=== PATIENT | male | born 1965 | race African-American/Black ===

== ENCOUNTER 2017-10-28 18:31 | Emergency (ER) | payer SELFPAY ==
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
[2017-10-28 19:57] LABS: #Basophils 0.1 thou/uL (0.0-0.2); #Eosinphils 0.3 thou/uL (0.0-0.7); #Lymphocytes 1.3 thou/uL (1.20-3.40); #Monocytes 0.4 thou/uL (0.11-0.59); #Neutrophils 1.7 thou/uL (1.40-6.50); %Basophils 1.4 % (0.0-1.0); %Eosinophils 8.2 % (0.0-10.0); %Lymphocytes 35.9 % (21.0-51.0); %Monocytes 9.5 % (0.0-10.0); Hematocrit 41.7 % (42.0-52.0); Mean Platelet Volume 7.9 fL (7.4-10.4); Red Blood Cell (RBC) Count 4.41 mill/uL (4.70-6.10); White Blood Cell (WBC) Count 3.7 thou/uL (4.8-10.8)
[2017-10-28 20:18] LABS: ALT (SGPT) 33 U/L (8-55); AST (SGOT) 70 U/L (5-34); Alkaline Phosphatase 76 U/L (40-150); Anion Gap 16 mmol/L (10-20); BUN (Urea Nitrogen) 4 mg/dL (8.4-25.7); Bilirubin, Total 0.3 mg/dL (0.2-1.2); Calc. Creatinine Clearance 0 mL/min (70-130); Calcium 9.1 mg/dL (7.8-10.44); Carbon Dioxide 26 mmol/L (22-29); Chloride 95 mmol/L (98-107); Estimated GFR-MDRD Greater than 90; Globulin 3.7 g/dL (2.4-3.5)
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
[2017-10-28] MEDS ORDERED: Ondansetron HCl/PF 4 MG/2 ML Vial ONE (20:43)
[2017-10-28] MEDS ORDERED: Morphine 4 MG/ML VIAL ONE (20:43)
[2017-10-28] MEDS ORDERED: Ibuprofen 800 MG TAB ONE (20:43)
== END 2017-10-28 22:13 | disposition home or self-care (01) ==
LOC: ERS 18:31
DX: S20.212A Contusion of left front wall of thorax, initial encounter (principal); J90 Pleural effusion, not elsewhere classified; I10 Essential (primary) hypertension; E11.9 Type 2 diabetes mellitus without complications; J45.909 Unspecified asthma, uncomplicated; F17.210 Nicotine dependence, cigarettes, uncomplicated; W20.8XXA Other cause of strike by thrown, projected or falling object, initial encounter
CPT/HCPCS: 36415; 71020; 71250; 80053; 83605; 85025; 96361; 96374; 96375; J2270; J2405

== ENCOUNTER 2017-10-29 22:10 | Emergency (ER) | payer SELFPAY ==
[2017-10-29] MEDS ORDERED: Ketorolac Tromethamine 60 MG/2 ML VIAL ONE (22:48)
== END 2017-10-29 23:16 | disposition home or self-care (01) ==
LOC: ERS 22:10
DX: R07.89 Other chest pain (principal); I10 Essential (primary) hypertension; E11.9 Type 2 diabetes mellitus without complications; J45.909 Unspecified asthma, uncomplicated; F17.210 Nicotine dependence, cigarettes, uncomplicated; V89.9XXA Person injured in unspecified vehicle accident, initial encounter
CPT/HCPCS: 36416; 96372; J1885

== ENCOUNTER 2017-10-31 00:44 | Inpatient (IN) | payer OTHER, SELFPAY ==
[2017-10-31] MEDS ORDERED: Ibuprofen 800 MG TAB ONE (02:58)
[2017-10-31 04:34] LABS: #Eosinphils 0.2 thou/uL (0.0-0.7); #Lymphocytes 1.5 thou/uL (1.20-3.40); #Monocytes 0.8 thou/uL (0.11-0.59); #Neutrophils 4.1 thou/uL (1.40-6.50); %Basophils 0.7 % (0.0-1.0); %Eosinophils 2.7 % (0.0-10.0); %Lymphocytes 22.7 % (21.0-51.0); %Monocytes 11.8 % (0.0-10.0); %Neutrophils 62.1 % (42.0-75.0); Mean Corpuscular Hemoglobin 31.1 pg (27.0-31.0); Mean Corpuscular Volume 94.2 fl (80.0-94.0); Mean Platelet Volume 8.4 fL (7.4-10.4); Platelet Count 148 thou/uL (130-400); RBC Distribution Width 14.8 % (11.5-14.5); Red Blood Cell (RBC) Count 3.23 mill/uL (4.70-6.10); White Blood Cell (WBC) Count 6.6 thou/uL (4.8-10.8)
[2017-10-31 04:38] LABS: PTT 34.5 SEC (22.9-36.1); Prothrombin Time 13.4 SEC (12.0-14.7)
[2017-10-31 04:57] LABS: ALT (SGPT) 25 U/L (8-55); AST (SGOT) 55 U/L (5-34); Albumin 4.2 g/dL (3.5-5.0); Alkaline Phosphatase 77 U/L (40-150); Anion Gap 14 mmol/L (10-20); BUN (Urea Nitrogen) Less than 4 mg/dL (8.4-25.7); Bilirubin, Total 0.4 mg/dL (0.2-1.2); Calc. Creatinine Clearance 0 mL/min (70-130); Calcium 9.1 mg/dL (7.8-10.44); Carbon Dioxide 25 mmol/L (22-29); Chloride 95 mmol/L (98-107); Estimated GFR-MDRD Greater than 90; Globulin 3.4 g/dL (2.4-3.5); Glucose 99 mg/dL (70-105); Protein, Total 7.6 g/dL (6.0-8.3); Sodium 130 mmol/L (136-145)
[2017-10-31 06:10] VITALS: BMI 21.7
[2017-10-31] MEDS ORDERED: Morphine 4 MG/ML VIAL SLOW IVP PRN (06:31)
[2017-10-31] MEDS ORDERED: Morphine 2 MG/ML SYRINGE SLOW IVP PRN (06:31)
[2017-10-31] MEDS ORDERED: Sodium Chloride 0.9% 1,000 ML IV SCH (06:32)
[2017-10-31] MEDS ORDERED: Ondansetron HCl/PF 4 MG/2 ML Vial IVP PRN (06:32)
[2017-10-31] MEDS ORDERED: Ondansetron ODT 4 MG TAB SL PRN (06:32)
[2017-10-31] MEDS ORDERED: FLU VACC QS2017-18 36 mo. & older 0.5 ML SYRINGE IM ONE (07:00)
[2017-10-31] MEDS ORDERED: Dextrose 50% Abboject 50 ML SYRINGE SLOW IVP PRN ×2 (09:24→09:59)
[2017-10-31] MEDS ORDERED: Rib Fracture Protocol PO SCH (09:24)
[2017-10-31] MEDS ORDERED: Promethazine HCl 25 MG/ML VIAL IM PRN (09:24)
[2017-10-31] MEDS ORDERED: Dextrose 5% in Water 1,000 ML IV PRN ×2 (09:24→09:59)
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
[2017-10-31] MEDS ORDERED: Cyclobenzaprine 10 MG TAB PO PRN ×2 (09:45→10:00)
[2017-10-31] MEDS ORDERED: HumaLOG 300 UNITS/3 ML VIAL SC PRN (09:59)
[2017-10-31] MEDS ORDERED: hydrALAZINE 20 MG/ML VIAL SLOW IVP PRN (09:59)
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
[2017-10-31] MEDS: Ibuprofen 600 MG TAB PO SCH ×2 (11:29→17:44)
[2017-10-31] MEDS: Acetaminophen 500 MG TAB PO SCH ×2 (11:29→17:43)
[2017-10-31] MEDS: traMADol HCl 50 MG TAB PO SCH ×2 (11:41→17:44)
[2017-10-31] MEDS ORDERED: Ibuprofen 800 MG TAB PO SCH (12:00)
[2017-10-31] MEDS: Gabapentin 100 MG CAP PO SCH ×2 (14:34→21:47)
[2017-10-31] MEDS ORDERED: Gabapentin 300 MG CAP PO SCH (15:00)
[2017-10-31] MEDS ORDERED: Loratadine 10 MG TAB PO SCH (16:15)
[2017-10-31] MEDS: Famotidine 20 MG TAB PO SCH (21:47)
[2017-10-31] MEDS: Enoxaparin Sodium 40 MG/0.4 ML SYRINGE SC SCH (21:47)
[2017-11-01] MEDS: Acetaminophen 500 MG TAB PO SCH ×5 (00:25→23:44)
[2017-11-01] MEDS: traMADol HCl 50 MG TAB PO SCH ×2 (00:26→05:57)
[2017-11-01] MEDS: Ibuprofen 600 MG TAB PO SCH ×5 (00:26→23:44)
[2017-11-01 06:25] LABS: Hemoglobin A1c 4.6 % (4.0-6.0)
[2017-11-01 06:37] LABS: Anion Gap 10 mmol/L (10-20); BUN (Urea Nitrogen) 6 mg/dL (8.4-25.7); Calc. Creatinine Clearance 97 mL/min (70-130); Calcium 8.6 mg/dL (7.8-10.44); Carbon Dioxide 28 mmol/L (22-29); Chloride 97 mmol/L (98-107); Estimated GFR-MDRD Greater than 90; Glucose 73 mg/dL (70-105); Potassium 3.8 mmol/L (3.5-5.1); Sodium 131 mmol/L (136-145)
[2017-11-01 07:50] LABS: Hemoglobin 8.8 g/dL (14.0-18.0); Mean Corpuscular HGB CONC 32.7 g/dL (32.0-36.0); Mean Corpuscular Hemoglobin 31.4 pg (27.0-31.0); Mean Corpuscular Volume 95.8 fl (80.0-94.0); Platelet Count 140 thou/uL (130-400); RBC Distribution Width 14.7 % (11.5-14.5); Red Blood Cell (RBC) Count 2.81 mill/uL (4.70-6.10); White Blood Cell (WBC) Count 5.1 thou/uL (4.8-10.8)
[2017-11-01 08:14] LABS: Band 7 % (5-11); Eosinophils 5 % (0-10); Lymphocytes 21 % (21-51); MDiff Complete? YES; Monocytes 8 % (0-10); Neutrophil 55 % (42-75); Polychromasia SLIGHT = 2-3 cells (100X) (0-2/hpf); Reactive Lymphocytes 4 % (0-10)
[2017-11-01] MEDS: Gabapentin 100 MG CAP PO SCH (08:37)
[2017-11-01] MEDS: Polyethylene Glycol 3350 17 GM Packet PO SCH (08:37)
[2017-11-01] MEDS: Famotidine 20 MG TAB PO SCH ×2 (08:37→20:49)
[2017-11-01] MEDS: Loratadine 10 MG TAB PO SCH (08:37)
--- NOTE | 2017-11-01 08:47 | RAD ---
SINGLE VIEW OF THE CHEST: Comparison: 10-31-17 History: Chest tube placement for pleural effusion. FINDINGS: Single view of the chest shows a normal sized cardiomediastinal silhouette. There is a left sided matilda st tube without evidence of pneumothorax. Airspace opacity is seen in the left lung which may represe nt a pulmonary contusion or infiltrate. IMPRESSION: Left pulmonary contusion versus infiltrate. POS: [facility]
[2017-11-01] MEDS ORDERED: traMADol HCl 50 MG TAB PO PRN (09:28)
--- NOTE | 2017-11-01 15:15 | RAD ---
PORTABLE CHEST 1 VIEW: Date: 11/01/17 Time: 1501 hours HISTORY: Hemothorax. FINDINGS/IMPRESSION: Comparison made with earlier exam at 0747 hours from the same date. Left-sided chest tube remains in place. Patchy opacity in left lung is again seen. There is suggestio n of a tiny left apical pneumothorax. The right lung is clear. The heart size is stable. POS: [facility]
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
[2017-11-01] MEDS: Cyclobenzaprine 10 MG TAB PO SCH (20:49)
[2017-11-01] MEDS: Enoxaparin Sodium 40 MG/0.4 ML SYRINGE SC SCH (20:49)
[2017-11-02] MEDS: Acetaminophen 500 MG TAB PO SCH ×3 (06:35→17:34)
[2017-11-02] MEDS: Ibuprofen 600 MG TAB PO SCH ×3 (06:36→17:34)
[2017-11-02] MEDS: Polyethylene Glycol 3350 17 GM Packet PO SCH (08:08)
[2017-11-02] MEDS: Famotidine 20 MG TAB PO SCH ×2 (08:08→20:54)
[2017-11-02] MEDS: Loratadine 10 MG TAB PO SCH (08:08)
[2017-11-02] MEDS: Enoxaparin Sodium 40 MG/0.4 ML SYRINGE SC SCH (20:53)
[2017-11-02] MEDS: Cyclobenzaprine 10 MG TAB PO SCH (20:54)
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
[2017-11-03] MEDS: Acetaminophen 500 MG TAB PO SCH ×3 (00:41→13:26)
[2017-11-03] MEDS: Ibuprofen 600 MG TAB PO SCH ×3 (00:42→13:26)
[2017-11-03] MEDS: Famotidine 20 MG TAB PO SCH (07:45)
[2017-11-03] MEDS: Loratadine 10 MG TAB PO SCH (07:45)
[2017-11-03] MEDS: Polyethylene Glycol 3350 17 GM Packet PO SCH (07:47)
[2017-11-03 08:02] VITALS: BP 162/83; TEMP 98.6
--- NOTE | 2017-11-03 08:35 | RAD ---
CHEST TWO VIEWS: History: Pneumothorax. Follow up. Comparison: 11-01-17 FINDINGS: Cardiac silhouette is now partially obscured by re-accumulation of fluid at the inferior aspect of th e left hemithorax. There is slight leftward shift of the mediastinum. Pleural surface associated with the apex of the left lung is now at the level of the posterior aspect of the left third rib. Left th oracostomy tube has been removed. Atelectasis and scarring at the left base has increased slightly. IMPRESSION: Slight interval enlargement of left pneumothorax and left pleural fluid (presumed blood). POS: [facility]
[2017-11-04] MEDS ORDERED: Lisinopril 5 MG TAB PO SCH (09:00)
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
== END 2017-11-03 15:53 | disposition home or self-care (01) | DRG 201 ==
LOC: ERS 00:44 → SJJU 04:11
PROVIDERS: ADMIT Specialist; ATTEND Specialist
PROC: 0W9B30Z Drainage of Left Pleural Cavity with Drainage Device, Percutaneous Approach (ICD-10-PCS; principal; 2017-10-31)
DX: S27.1XXA Traumatic hemothorax, initial encounter (principal); E11.9 Type 2 diabetes mellitus without complications; F17.210 Nicotine dependence, cigarettes, uncomplicated; V19.3XXA Pedal cyclist (driver) (passenger) injured in unspecified nontraffic accident, initial encounter; Y93.55 Activity, bike riding; I10 Essential (primary) hypertension; J45.909 Unspecified asthma, uncomplicated
CPT/HCPCS: 32551; 36415; 36416; 71010; 71020; 80048; 80053; 83036; 85025; 85610; 85730; 86850; 86900; 86901; 94640; 96360; 99152; 99153; J1650; J2270; J7620

== ENCOUNTER 2017-12-11 05:14 | Inpatient (IN) | payer OTHER, SELFPAY ==
[2017-12-11] MEDS ORDERED: Piperacillin/Tazobactam 3.375 GM in Sodium Chloride 0.9% 100 ML IVPB SCH (07:30)
[2017-12-11 07:46] LABS: #Basophils 0.1 thou/uL (0.0-0.2); #Eosinphils 0.1 thou/uL (0.0-0.7); #Lymphocytes 2.3 thou/uL (1.20-3.40); #Neutrophils 8.1 thou/uL (1.40-6.50); %Basophils 0.7 % (0.0-1.0); %Eosinophils 0.8 % (0.0-10.0); %Lymphocytes 19.9 % (21.0-51.0); %Monocytes 8.9 % (0.0-10.0); %Neutrophils 69.7 % (42.0-75.0); Hemoglobin 9.2 g/dL (14.0-18.0); Mean Corpuscular HGB CONC 32.5 g/dL (32.0-36.0); Mean Corpuscular Hemoglobin 27.3 pg (27.0-31.0); Platelet Count 662 thou/uL (130-400); RBC Distribution Width 18.3 % (11.5-14.5); Red Blood Cell (RBC) Count 3.37 mill/uL (4.70-6.10); White Blood Cell (WBC) Count 11.7 thou/uL (4.8-10.8)
--- NOTE | 2017-12-11 07:54 | RAD ---
CHEST 1 VIEW: HISTORY: A 52-year-old male with a history of cough and phlegm for 3 days without fever. COMPARISON: 11/03/17. FINDINGS: There are 2 large homogeneous opacities in the left chest, 1 in the left upper chest measuring approx imately 11 cm and the other one in the left lower chest measuring approximately 12 cm probably repres enting large loculated pleural effusions. There is some minimal patchy parenchymal change in the rem aining left lung that is visualized. Minimal patchy parenchymal changes in the right mid lung zone w hich are new from the prior study, 11/03/17. Heart size is difficult to assess because of the extens clay pleural opacity changes. IMPRESSION: Two large nodular areas of abnormal probable pleural opacity in the left chest, one in the upper mat[address] st and the other in the lower chest probably representing large loculated pleural effusions-empyema. Diffuse patchy parenchymal changes in the left chest. New minimal patchy parenchymal changes in the right mid lung zone. Followup chest CT scan with IV contrast is recommended. No evidence for signi ficant pneumothorax. POS: [facility]
[2017-12-11 08:08] LABS: ALT (SGPT) 13 U/L (8-55); AST (SGOT) 20 U/L (5-34); Albumin 2.8 g/dL (3.5-5.0); Alkaline Phosphatase 71 U/L (40-150); Anion Gap 13 mmol/L (10-20); BUN (Urea Nitrogen) 5 mg/dL (8.4-25.7); Bilirubin, Total 0.4 mg/dL (0.2-1.2); CK (CPK) 33 U/L (30-200); Calc. Creatinine Clearance 0 mL/min (70-130); Calcium 8.9 mg/dL (7.8-10.44); Carbon Dioxide 25 mmol/L (22-29); Chloride 90 mmol/L (98-107); Estimated GFR-MDRD Greater than 90; Glucose 74 mg/dL (70-105); Potassium 4.3 mmol/L (3.5-5.1); Protein, Total 7.8 g/dL (6.0-8.3); Sodium 124 mmol/L (136-145)
[2017-12-11 08:11] LABS: CKMB 0.8 ng/mL (0-6.6); Troponin I 0.028 ng/mL (< 0.028)
--- NOTE | 2017-12-11 08:47 | CT ---
CHEST CT SCAN WITH IV CONTRAST: HISTORY: A 52-year-old female with a history of fall last month and now presents with cough with chills and maggi dy aches. FINDINGS: There is a large, approximately 8.5 x 12 cm diameter air and pleural fluid loculation in the left upp er chest. Additionally, in the left lower chest there is an approximately 5.5 x 14 cm diameter pleur al fluid collection without a significant amount of associated pleural air. This pleural fluid colle ction appears to extend through an approximately 1.5 cm defect in the anterior chest between displace d fractures of the left 6th and 7th anterior costochondral cartilages. This forms a fluid collection measuring approximately 2 x 6 cm in the left anterior superficial chest wall with some associated pu nctate gas pockets. This could suggest some actual pleural herniation through this defect. There ar e nondisplaced fractures of the left 5th and 6th anterior ribs as well. There are some patchy parenc hymal changes in the right upper lobe certainly raising concern for pneumonia. The aorta appears unr emarkable. No mediastinal hematoma. THORACIC SPINE CT SCAN WITH IV CONTRAST LIMITED: FINDINGS: No thoracic spine fracture or dislocation. Multilevel disk-osteophytosis. Visualized upper abdomen appears unremarkable. IMPRESSION: Two large loculated pleural collections in the left chest. The one superiorly contains some air with in it, the more caudal one appears to be primarily fluid with what appears to be an associated pleura l herniation through the anterior chest wall associated with displaced fractures of the left 6th and 7th anterior costochondral cartilage. This area of pleural herniation is associated with an anterior left chest wall fluid collection with some punctate gas as well. Patchy parenchymal changes in the right upper lobe, evidence for pneumonia. Findings were discussed with Dr. Willis by phone at 8:24 a.m. CODE CR POS: [facility]
[2017-12-11] MEDS ORDERED: Ondansetron ODT 4 MG TAB SL PRN (10:34)
[2017-12-11] MEDS ORDERED: Ondansetron HCl/PF 4 MG/2 ML Vial IVP PRN ×2 (10:34→10:42)
[2017-12-11] MEDS ORDERED: HYDROcodone/Acetaminophen 5/325 mg Tablet PO PRN ×3 (10:34→10:42)
[2017-12-11] MEDS ORDERED: Acetaminophen 325 MG TAB PO PRN ×2 (10:34→10:42)
[2017-12-11] MEDS ORDERED: Diabetic Tussin 200 MG/10 ML UDCUP PO PRN (10:42)
[2017-12-11] MEDS ORDERED: traMADol HCl 50 MG TAB PO PRN (10:42)
[2017-12-11] MEDS ORDERED: Senokot 8.6 MG TAB PO PRN ×2 (10:42)
[2017-12-11] MEDS ORDERED: Sodium Chloride 0.9% 1,000 ML IV SCH ×3 (10:42→14:27)
[2017-12-11] MEDS ORDERED: Calcium Carbonate 500 MG ChewTAB PO PRN (10:42)
[2017-12-11] MEDS ORDERED: Nitroglycerin 0.4 MG TAB (25 Tab Bottle) SL PRN (10:42)
[2017-12-11] MEDS ORDERED: Mag-Al 1200 mg/1200 mg/30 ML UDCUP PO PRN (10:42)
[2017-12-11] MEDS ORDERED: Dextrose 50% Abboject 50 ML SYRINGE SLOW IVP PRN (10:42)
[2017-12-11] MEDS ORDERED: Benzonatate 100 MG CAP PO PRN (10:42)
[2017-12-11] MEDS ORDERED: cloNIDine 0.1 MG TAB PO PRN (10:42)
[2017-12-11] MEDS ORDERED: Dextrose 5% in Water 1,000 ML IV PRN (10:42)
[2017-12-11] MEDS ORDERED: hydrALAZINE 20 MG/ML VIAL SLOW IVP PRN (10:42)
[2017-12-11] MEDS ORDERED: Bisacodyl 5 MG TAB PO PRN ×2 (10:42)
[2017-12-11] MEDS ORDERED: Loratadine 10 MG TAB PO PRN (10:42)
[2017-12-11] MEDS ORDERED: HumaLOG 300 UNITS/3 ML VIAL SC PRN ×2 (10:42)
[2017-12-11] MEDS ORDERED: Lorazepam 2 MG/ML VIAL SLOW IVP PRN ×2 (10:42→15:06)
[2017-12-11] MEDS ORDERED: Famotidine/PF 20 mg/2ml Vial SLOW IVP SCH (11:00)
[2017-12-11] MEDS ORDERED: Enoxaparin Sodium 40 MG/0.4 ML SYRINGE SC SCH (11:00)
[2017-12-11] MEDS ORDERED: Midazolam HCl 2 mg/2 ml Vial ONE ×2 (11:01→11:39)
[2017-12-11] MEDS ORDERED: Fentanyl 100 MCG/2 ML VIAL ONE ×3 (11:01→11:25)
[2017-12-11] MEDS ORDERED: ISOVUE-370 76%-LOCM 1 ML ONE (12:42)
[2017-12-11] MEDS ORDERED: Bupivacaine PF 0.5% 30 ML VIAL ONE (12:45)
[2017-12-11] MEDS ORDERED: Bupivacaine 0.25% HCL 30 ML VIAL ONE (12:45)
[2017-12-11] MEDS ORDERED: Lidocaine 1% w/Epinephrine 1:200K 30 ML VIAL ONE (12:45)
[2017-12-11] MEDS ORDERED: PHENYLEPHRINE-NS 100 MCG/ML 10 ML SYRINGE ONE ×2 (12:46→14:44)
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
[2017-12-11] MEDS ORDERED: Piperacillin/Tazobactam 4.5 GM in Sodium Chloride 0.9% 100 ML IVPB SCH (14:00)
[2017-12-11] MEDS ORDERED: SUGAMMADEX SODIUM 200 MG/2 ML VIAL ONE (14:09)
[2017-12-11] MEDS ORDERED: Glycopyrrolate 0.2 MG/ML 5 ML SYRINGE ONE (14:44)
[2017-12-11] MEDS ORDERED: Ondansetron HCl/PF 4 MG/2 ML Vial ONE (14:44)
[2017-12-11] MEDS ORDERED: PROPOFOL 200 MG/20 ML VIAL ONE (14:44)
[2017-12-11] MEDS ORDERED: Sedation Protocol FS ONE (14:47)
[2017-12-11] MEDS ORDERED: DISCONTINUE PREVIOUS NARCOTIC PAIN MEDICATIONS AND BENZODIAZEPINES FS SCH (15:06)
[2017-12-11] MEDS ORDERED: Fentanyl BOLUS 250 ML IVPB PRN (15:06)
[2017-12-11] MEDS ORDERED: Morphine 2 MG/ML SYRINGE SLOW IVP PRN (15:06)
[2017-12-11] MEDS ORDERED: Propofol 1,000 MG/100 ML VIAL IV PRN (15:06)
[2017-12-11] MEDS ORDERED: fentaNYL Citrate/PF 2,000 MCG in Sodium Chloride 0.9% 60 ML IV SCH (15:06)
[2017-12-11] MEDS ORDERED: CCU Electrolyte Replacement 1 EACH FS ONE (15:27)
[2017-12-11] MEDS ORDERED: Potassium Phosphate 12 MMOL in Sodium Chloride 0.9% 250 ML 250 ML IV PRN (15:31)
[2017-12-11] MEDS ORDERED: Potassium Phosphate 9 MMOL in Sodium Chloride 0.9% 100 ML IVPB PRN (15:31)
[2017-12-11] MEDS ORDERED: Magnesium 2 GM/NS 0.9% 100 ML 2 GM in Premix Bag 1 BAG IVPB PRN (15:31)
[2017-12-11] MEDS ORDERED: Potassium Chloride 40 MEQ in Premix Bag 1 BAG IVPB PRN (15:31)
[2017-12-11] MEDS ORDERED: Potassium Phosphate 15 MMOL in Sodium Chloride 0.9% 250 ML 250 ML IV PRN (15:31)
[2017-12-11] MEDS ORDERED: Magnesium Oxide 400 MG TAB PO PRN ×2 (15:31)
[2017-12-11] MEDS ORDERED: Potassium Chloride 40 MEQ in Sodium Chloride 0.9% 250 ML 250 ML IVPB PRN (15:31)
[2017-12-11] MEDS ORDERED: Potassium Chloride 20 MEQ TAB PO PRN (15:31)
[2017-12-11] MEDS ORDERED: CCU ELECTROLYTE REPLACEMENT PROTOCOL FS PRN (15:31)
[2017-12-11 15:33] LABS: Hemoglobin 6.7 g/dL (14.0-18.0); Mean Corpuscular HGB CONC 31.8 g/dL (32.0-36.0); Mean Corpuscular Hemoglobin 27.1 pg (27.0-31.0); Mean Corpuscular Volume 85.3 fl (80.0-94.0); Mean Platelet Volume 5.9 fL (7.4-10.4); Platelet Count 478 thou/uL (130-400); RBC Distribution Width 18.3 % (11.5-14.5); Red Blood Cell (RBC) Count 2.47 mill/uL (4.70-6.10); White Blood Cell (WBC) Count 8.5 thou/uL (4.8-10.8)
--- NOTE | 2017-12-11 16:00 | RAD ---
CHEST ONE VIEW: History: 52-year-old male with history of cough and recent post thoracotomy. Comparison: 12-11-17 FINDINGS: The very large loculated pleural and air loculations have markedly improved. Two left chest tubes rem ain in place. NG tube, endotracheal tube and left subclavian catheters are in place. Patchy parenchym al changes in the right upper lobe, evidence for some pneumonia. No significant pneumothorax. IMPRESSION: Marked improvement in the large loculated pleural collections from the prior pre-operative study. Two left chest tubes. Stable parenchymal changes in the right mid and upper lung zone. Continue short te rm follow up. POS: [facility]
[2017-12-11 16:01] LABS: Anion Gap 9 mmol/L (10-20); BUN (Urea Nitrogen) 6 mg/dL (8.4-25.7); Calc. Creatinine Clearance 152 mL/min (70-130); Calcium 6.8 mg/dL (7.8-10.44); Carbon Dioxide 19 mmol/L (22-29); Chloride 104 mmol/L (98-107); Estimated GFR-MDRD Greater than 90; Glucose 69 mg/dL (70-105); Potassium 3.9 mmol/L (3.5-5.1); Sodium 128 mmol/L (136-145)
[2017-12-11 16:04] LABS: #Eosinphils 0.1 thou/uL (0.0-0.7); #Lymphocytes 1.4 thou/uL (1.20-3.40); #Monocytes 0.8 thou/uL (0.11-0.59); #Neutrophils 6.3 thou/uL (1.40-6.50); %Basophils 0.3 % (0.0-1.0); %Eosinophils 1.1 % (0.0-10.0); %Lymphocytes 15.8 % (21.0-51.0); %Monocytes 9.1 % (0.0-10.0); %Neutrophils 73.7 % (42.0-75.0); Anisocytosis SLIGHT = 6-15 cells (100X) (0-5/hpf); Band 10 % (5-11); Hypochromia SLIGHT = 6-15 cells (100X) (0-5/hpf); Lymphocytes 10 % (21-51); MDiff Complete? YES; Monocytes 2 % (0-10); Neutrophil 78 % (42-75); PLT Morphology Comment Appears Increased
[2017-12-11] MEDS ORDERED: Calcium Chloride 1 GM/10 ML Abboject SYRINGE ONE (16:15)
[2017-12-11] MEDS ORDERED: Norepinephrine 8 MG/0.9% NS 250 ML IVPB SCH (16:15)
[2017-12-11] MEDS: Sodium Chloride 0.9% 1,000 ML IV SCH (16:17)
[2017-12-11 16:25] LABS: Actual Bicarbonate (HCO3a) 17.8 mEq/L (22-26); Base Excess (BEa) -7.3 mEq/L (0 (+/-) 2.5); CO2 Tension 33.7 mmHg (35.0-45.0); Hematocrit-ABG 27.5 % (42.0-52.0); Hemoglobin (Hb) 7.1 g/dL (14.0-18.0); O2 Tension (PaO2) 78.2 mmHg (80.0-100.0); pH, Arterial 7.34 (7.35-7.45)
[2017-12-11 16:26] LABS: ALV-art Gradient 70.835 (0-20); Calcium, Ionized 1.1 mmol/L (1.12-1.30); Puncture Site ALINE
[2017-12-11] MEDS ORDERED: Calcium Chloride 1 GM/10 ML Abboject SYRINGE IVP SCH (16:30)
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
--- NOTE | 2017-12-11 17:15 | OP ---
DATE OF PROCEDURE: 12/11/2017 PREOPERATIVE DIAGNOSIS: Left empyema. POSTOPERATIVE DIAGNOSIS: Left empyema. PROCEDURE PERFORMED: Left thoracotomy with total pulmonary decortication, drainage of 2 subcutaneous abscesses. SURGEON: Julian Mehta M.D. ANESTHESIA: General endotracheal. ESTIMATED BLOOD LOSS: 250. FINDINGS: 1700 mL of purulent drainage from the chest. DRAINS: 32-Moroccan chest tubes x2. PROCEDURE IN DETAIL: After consent was obtained, the patient was brought to operating room and place d in the supine position on the operating room table. Appropriate anesthetic monitor was placed and general endotracheal anesthesia induced. Flexible fiberoptic bronchoscopy was used to position a lucia ble lumen endotracheal tube. The patient was placed in the right lateral decubitus position. The le ft chest was prepped and draped in usual sterile fashion including the 2 areas of subcutaneous absces s. Posterolateral thoracotomy was made and eventually extended. Latissimus and serratus were divide d. The chest was entered and the ribs would not spread. This led to extending the incision, both an teriorly and posteriorly. Once the retractor could be placed between the ribs, retractor was placed. Cultures were taken. There were two separate large abscesses which were drained 1 at the apex and 1 supradiaphragmatic involving the lower lobe. The lung was completely mobilized from the chest wall . The lower abscess cavity was able to be entered with a sucker - this communicated with the thoraci c cavity. The skin was opened and allowed to drain. A second abscess cavity also was able to be ent ered with a sucker from inside the chest cavity. The abscess cavity was opened and drained. The matilda st was irrigated with 5 liters of saline. The lung was reexpanded and expanded and filled the chest cavity fairly well. There were no other areas where we could remove peel from the lung. There were multiple areas of air leak already just getting the lung mobilized from the chest wall. A 32 Moroccan chest tube x2 were placed. Ribs were reapproximated with #1 Vicryl. Wounds were then closed in laye rs. Skin clips were applied. The two areas of abscess were packed with gauze and covered with an oc clusive dressing. The patient was awakened, extubated, and transferred to the Intensive Care Unit in stable condition. Needle, sponge, and instrument counts were all reported as correct.
[2017-12-11] MEDS: Vancomycin HCl 1 GM in Premix Bag 1 BAG IVPB SCH ×2 (17:25→20:23)
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
[2017-12-11] MEDS: Piperacillin/Tazobactam 3.375 GM in Sodium Chloride 0.9% 100 ML IVPB SCH ×2 (19:30→23:51)
[2017-12-11] MEDS: Famotidine/PF 20 mg/2ml Vial SLOW IVP SCH (20:24)
[2017-12-11] MEDS ORDERED: FLU VACC QS2017-18 36 mo. & older 0.5 ML SYRINGE IM ONE (21:00)
[2017-12-12] MEDS: Vancomycin HCl 1 GM in Premix Bag 1 BAG IVPB SCH ×3 (04:21→20:14)
[2017-12-12 04:45] LABS: #Eosinphils 0.1 thou/uL (0.0-0.7); #Lymphocytes 2.8 thou/uL (1.20-3.40); #Monocytes 1.3 thou/uL (0.11-0.59); %Basophils 0.2 % (0.0-1.0); %Eosinophils 0.7 % (0.0-10.0); %Lymphocytes 16.1 % (21.0-51.0); %Monocytes 7.8 % (0.0-10.0); %Neutrophils 75.2 % (42.0-75.0); Mean Corpuscular HGB CONC 31.4 g/dL (32.0-36.0); Mean Corpuscular Hemoglobin 27.6 pg (27.0-31.0); Mean Corpuscular Volume 87.8 fl (80.0-94.0); Platelet Count 498 thou/uL (130-400); RBC Distribution Width 16.8 % (11.5-14.5); Red Blood Cell (RBC) Count 3.63 mill/uL (4.70-6.10); White Blood Cell (WBC) Count 17.3 thou/uL (4.8-10.8)
[2017-12-12 05:03] LABS: Calc. Creatinine Clearance 130 mL/min (70-130); Estimated GFR-MDRD Greater than 90
[2017-12-12 05:04] LABS: BUN (Urea Nitrogen) 7 mg/dL (8.4-25.7)
[2017-12-12] MEDS: Sodium Chloride 0.9% 1,000 ML IV SCH (05:07)
[2017-12-12 05:21] LABS: Anion Gap 11 mmol/L (10-20); Calcium 8.1 mg/dL (7.8-10.44); Carbon Dioxide 18 mmol/L (22-29); Chloride 103 mmol/L (98-107); Glucose 70 mg/dL (70-105); Potassium 4.4 mmol/L (3.5-5.1); Sodium 128 mmol/L (136-145)
[2017-12-12] MEDS: Piperacillin/Tazobactam 3.375 GM in Sodium Chloride 0.9% 100 ML IVPB SCH ×3 (06:40→18:00)
--- NOTE | 2017-12-12 07:57 | RAD ---
PORTABLE AP CHEST: Date: 12/12/17 HISTORY: Post left thoracotomy. COMPARISON: 12/11/17. FINDINGS: The endotracheal tube, nasogastric tube, and left subclavian central venous catheter remain in place and unchanged in position. Two left-sided thoracostomy tubes also remain in position. There is increa sed density again seen with patchy parenchymal changes at the left lung base which could be related t o volume loss and related to recent postsurgical change. Skin clips overlie the left lateral chest wi th subcutaneous emphysema again present. Linear density in the right mid lung zone is similar to the prior study which may be related to atelectasis or scarring. Chest is not significantly changed when compared to the prior exam. IMPRESSION: 1. Stable chest. 2. Left-sided thoracostomy tubes remain in place, and no obvious pneumothorax is appreciated. POS: OFF
[2017-12-12] MEDS: Famotidine/PF 20 mg/2ml Vial SLOW IVP SCH (08:37)
[2017-12-12] MEDS ORDERED: Enoxaparin Sodium 40 MG/0.4 ML SYRINGE SC SCH (09:00)
[2017-12-12 11:37] LABS: Vancomycin, Trough 13.4 ug/mL
[2017-12-12 11:59] LABS: Syphilis Antibody Nonreactive (Nonreactive); Syphilis Antibody Index 0.07 S/CO (<1.00 Non-Reactive)
[2017-12-12 12:02] LABS: HIV (1/2) Antibody/Antigen Non-Reactive (NonReactive); HIV 1/2 INDEX 0.29 S/CO (<1.00); Hep C IgG Ab Non-Reactive (NonReactive)
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
[2017-12-12] MEDS ORDERED: Sodium Chloride 0.9% 1,000 ML IV SCH (12:25)
--- NOTE | 2017-12-12 12:41 | PRG ---
DATE OF SERVICE: 12/12/2017 SERVICE: Pulmonary Medicine. INTERVAL HISTORY: The patient is doing really well from a cardiovascular and respiratory standpoint. This morning, he was doing well on a spontaneous breathing trial. He had no events overnight. He cannot provide me any additional elements of the history, because he currently has a difficult time s peaking with the tube in his throat. PHYSICAL EXAMINATION: VITAL SIGNS: Afebrile, pulse 122, blood pressure 132/79, respirations 30, saturation 100% on 21% FiO 2 and a PEEP of 5. GENERAL: The patient is awake, alert, in no apparent distress. LUNGS: Excellent air entry. There is no prolonged expiratory phase, wheezing, rhonchi, or crackles present. There are some rubs associated with deep breathing. HEART: Tachycardic. Regular. ABDOMEN: Soft, nontender, nondistended. Bowel sounds positive. MUSCULOSKELETAL: No cyanosis or clubbing. There is no pitting in the bilateral lower extremities. NEUROLOGIC: Grossly nonfocal. LABORATORY DATA: WBC 17.3, hemoglobin 10.0, platelets 498,000. Neutrophil count is 75%. Sodium 128 . Basic metabolic profile is otherwise unremarkable. The pleural fluid is growing 2 different Staph ylococcus species. Blood cultures x2 are unremarkable. Influenza A and B are negative. IMAGING: Chest x-ray demonstrates stable thoracostomy drains in good position. The apical pneumotho rax has resolved. His left subclavian central venous catheter is in good position. Overall, there h as been no interval change. ASSESSMENT: 1. Acute hypoxic respiratory failure. 2. Septic shock. 3. Empyema service on the left. 4. Thoracotomy with decortication, postoperative day #1. 5. Type 2 diabetes mellitus. DISCUSSION AND PLAN: The patient is doing absolutely fantastic. If he meets criteria following a sp ontaneous breathing trial, extubation will be considered. Pulmonary Critical Care will continue to f jaden while the patient remains in this location. If he extubates comfortably, we will feed him, mob ilize him, and discontinue the Silva catheter as well art-line. We will work on getting him up into a chair a couple times on a daily basis and stop transducing the CVP. He will need to remain in the ICU for at least an additional 24 hours. Critical care time: 30 minutes.
--- NOTE | 2017-12-12 15:07 | PDOC.PN ---
- Subjective Encounter Start Date: 12/12/17 Encounter Start Time: 15:05 Subjective: feels so much better. extubated and awake. -: denies any significant pain or SOB - Objective MAR Reviewed: Yes Vital Signs & Weight: Vital Signs (12 hours) Temp Pulse Resp Pulse Ox 12/12/17 12:00 98.5 F 94 L 12/12/17 08:58 99 12/12/17 07:29 99.1 F 112 H 30 H 97 12/12/17 07:00 99.1 F 12/12/17 06:00 21 H 12/12/17 04:00 98.8 F 29 H 12/12/17 03:20 104 H Weight Weight 148 lb Most Recent Monitor Data Heart Rate from ECG 116 NIBP 130/74 NIBP BP-Mean 96 Respiration from ECG 39 SpO2 97 I&O: 12/11/17 12/12/17 12/13/17 06:59 06:59 06:59 Intake Total 3120 720 Output Total 1543 545 Balance 1577 175 Result Diagrams: 12/12/17 04:20 12/12/17 04:20 Additional Labs: Accuchecks 12/12/17 12/11/17 12/11/17 11:38 21:51 19:19 POC Glucose 147 H 95 85 12/11/17 17:34 POC Glucose 60 L Microbiology 12/11/17 05:30 Nasal swab Influenza Types A,B Direct EIA - Final 12/11/17 12:40 Pleural - Left Bacterial Culture - Preliminary 12/11/17 12:40 Pleural - Left Staphylococcus species#2 Staphylococcus species 12/11/17 12:40 Pleural - Left Bacterial Culture - Preliminary 12/11/17 07:40 Venous blood - Left Arm Blood Culture - Preliminary Specimen has been received and culture in progress. No Growth to date. 12/11/17 07:28 Venous blood - Right Arm Blood Culture - Preliminary Specimen has been received and culture in progress. No Growth to date. Laboratory Tests 12/11/17 12/11/17 12/11/17 07:28 07:28 15:19 Hgb 9.2 L Sodium 124 L 128 L 12/11/17 12/12/17 12/12/17 15:19 04:20 04:20 Hgb 6.7 L 10.0 L Sodium 128 L Phys Exam - Physical Examination Constitutional: NAD HEENT: PERRLA, moist MMs, sclera anicteric, oral pharynx no lesions Left subclavian in place Neck: no nodes, no JVD, supple, full ROM Respiratory: no wheezing, no rales, no rhonchi, clear to auscultation bilateral Cardiovascular: RRR, no significant murmur Gastrointestinal: soft, non-tender, no distention, positive bowel sounds Musculoskeletal: no edema, pulses present Neurological: non-focal, normal sensation, moves all 4 limbs Psychiatric: normal affect, A&O x 3 Dx/Plan (1) Empyema lung Code(s): J86.9 - PYOTHORAX WITHOUT FISTULA Status: Acute Comment: s/p decortication & thoracotomy 12/11/17.Chest Tube in place (2) Septic shock Code(s): A41.9 - SEPSIS, UNSPECIFIED ORGANISM; R65.21 - SEVERE SEPSIS WITH SEPTIC SHOCK Status: Resolved (3) Hyponatremia Code(s): E87.1 - HYPO-OSMOLALITY AND HYPONATREMIA Status: Acute Comment: Stable.trang DOHERTYPORSHA d/t Empyema. (4) DM2 (diabetes mellitus, type 2) Status: Chronic Qualifiers: Diabetes mellitus complication status: with hyperglycemia (5) Acute blood loss as cause of postoperative anemia Code(s): D62 - ACUTE POSTHEMORRHAGIC ANEMIA Status: Acute Comment: Stable H/ H post 2 unit PRBC on 12/11/17 (6) HTN (hypertension) Code(s): I10 - ESSENTIAL (PRIMARY) HYPERTENSION Status: Chronic Comment: Lisinopril on hold as BP was low - Plan continue antibiotics, PT/OT, social insurance adviser, respiratory therapy, incentive spirometry, out of bed/ambulate, DVT proph w/SCDs Clinically much better.Hemodynamically stable. -: cont ABx per ID.chest tube in place -: appreciate input form all specialists -: BP better.no need for pressors. -: HIv,RPR & hepatitis panels negative * .AM labs Review of Systems - Review of Systems Constitutional: weakness. negative: fever, chills, sweats, malaise, other ENT: negative: Ear Pain, Ear Discharge, Nose Pain, Nose Discharge, Nose Congestion, Mouth Pain, Mouth Swelling, Throat Pain, Throat Swelling, Other Respiratory: SOB with Excertion. negative: Cough, Dry, Shortness of Breath, Hemoptysis, Pleuritic Pain, Sputum, Wheezing Cardiovascular: negative: chest pain, palpitations, orthopnea, paroxysmal nocturnal dyspnea, edema, light headedness, other Gastrointestinal: negative: Nausea, Vomiting, Abdominal Pain, Diarrhea, Constipation, Melena, Hematochezia, Other Genitourinary: negative: Dysuria, Frequency, Incontinence, Hematuria, Retention , Other Musculoskeletal: negative: Neck Pain, Shoulder Pain, Arm Pain, Back Pain, Hand Pain, Leg Pain, Foot Pain, Other Neurological: negative: Weakness, Numbness, Incoordination, Change in Speech, Confusion, Seizures, Other - Medications/Allergies Allergies/Adverse Reactions: Allergies Allergy/AdvReac Type Severity Reaction Status Date / Time No Known Drug Allergies Allergy Verified 10/31/17 06:20 Medications: Current Medications Acetaminophen (Tylenol) 650 mg PO Q4H PRN PRN Reason: Headache/Fever or Pain Hydrocodone Bitart/Acetaminophen (Dumas 10/325) 1 tab PO Q4H PRN PRN Reason: Pain Al Hydroxide/Mg Hydroxide (Maalox) 30 ml PO Q6H PRN PRN Reason: Heartburn or Indigestion Bisacodyl (Dulcolax) 10 mg PO DAILYPRN PRN PRN Reason: Constipation Calcium Carbonate (Tums) 1,000 mg PO Q4H PRN PRN Reason: Heartburn or Indigestion Dextrose/Water (Dextrose 50%) 25 gm SLOW IVP PRN PRN PRN Reason: Hypoglycemia Glucagon (Glucagon) 1 mg IM PRN PRN PRN Reason: Hypoglycemia Guaifenesin (Robitussin Sf) 200 mg PO Q4H PRN PRN Reason: Cough Hydralazine HCl (Apresoline) 10 mg SLOW IVP Q4H PRN PRN Reason: Systolic BP > 180 Dextrose/Water (D5w) 1,000 mls @ 0 mls/hr IV .Q0M PRN; As Directed PRN Reason: Hypoglycemia Vancomycin HCl 1 gm/ Device 200 mls @ 200 mls/hr IVPB 0400,1200,2000 [facility] Last Admin: 12/12/17 11:38 Dose: 200 mls Piperacillin Sod/Tazobactam (Sod 3.375 gm/ Sodium Chloride) 100 mls @ 200 mls/ hr IVPB Q6HR [facility] Last Admin: 12/12/17 11:39 Dose: 100 mls Potassium Chloride 40 meq/ (Sodium Chloride) 270 mls @ 135 mls/hr IVPB ASDIR PRN PRN Reason: FOR SERUM K+ 2.5 - 3.5 Potassium Chloride 40 meq/ (Device) 100 mls @ 50 mls/hr IVPB ASDIR PRN PRN Reason: FOR SERUM K+ 2.5 - 3.5 Magnesium Sulfate 1 gm/ Sodium (Chloride) 102 mls @ 102 mls/hr IV PRN PRN PRN Reason: MAG LEVEL 1.4 - 2.0 Magnesium Sulfate 2 gm/ Device 100 mls @ 100 mls/hr IVPB ASDIR PRN PRN Reason: MAGNESIUM < 1.4 Potassium Phosphate 9 mmol/ (Sodium Chloride) 103 mls @ 25.75 mls/hr IVPB ASDIR PRN PRN Reason: Phosphate 1.0-1.8 Potassium Phosphate 12 mmol/ (Sodium Chloride) 254 mls @ 63.5 mls/hr IV ASDIR PRN PRN Reason: Serum phosphate 0.5-0.9 Potassium Phosphate 15 mmol/ (Sodium Chloride) 255 mls @ 63.75 mls/hr IV ASDIR PRN PRN Reason: Serum Phos < 0.5 Sodium Chloride (Normal Saline 0.9%) 1,000 mls @ 0 mls/hr IV .Q0M GABBY PRN Reason: KVO Insulin Human Lispro (Humalog) 0 units SC .MODERATE SLIDING SC PRN PRN Reason: Moderate Correctional Scale Insulin Human Lispro (Humalog) 0 units SC .BEDTIME SLIDING SC PRN PRN Reason: Bedtime Correctional Scale Loratadine (Claritin) 10 mg PO DAILYPRN PRN PRN Reason: Sinus Symptoms Magnesium Oxide (Magnesium Oxide) 400 mg PO BIDPRN PRN PRN Reason: FOR SERUM MAG 1.4 - 2.0 Magnesium Oxide (Magnesium Oxide) 800 mg PO PRN PRN PRN Reason: FOR SERUM MAG < 1.4 Miscellaneous Medication (Pharmacy To Dose) 1 each IVPB PRN PRN PRN Reason: Pharmacy to dose Miscellaneous Medication (Phos-Nak) 1 pkt PO TIDPRN PRN PRN Reason: FOR PHOS LEVEL 1.0 - 1.8 Miscellaneous Medication (Phos-Nak) 2 pkt PO TIDPRN PRN PRN Reason: FOR PHOS LEVEL 0.5 - 1.0 Nitroglycerin (Nitrostat) 0.4 mg SL Q5MIN PRN PRN Reason: Chest Pain Ccu Electrolyte (Replacement Protocol) 0 each FS PRN PRN PRN Reason: FOR ELECTROLYTE REPLACEMENT Ondansetron HCl (Zofran) 4 mg IVP Q6H PRN PRN Reason: Nausea/Vomiting Potassium Chloride (K-Dur) 40 meq PO ASDIR PRN PRN Reason: FOR SERUM K+ 2.5 - 3.5 Potassium Chloride (Klor-Con) 40 meq PER TUBE ASDIR PRN PRN Reason: FOR SERUM K+ 2.5-3.5 Senna (Senokot) 2 tab PO HSPRN PRN PRN Reason: Constipation Sodium Chloride (Flush - Normal Saline) 10 ml IVF PRN PRN PRN Reason: Saline Flush
[2017-12-12] MEDS ORDERED: Famotidine 20 MG TAB PO SCH (21:00)
[2017-12-13] MEDS: Piperacillin/Tazobactam 3.375 GM in Sodium Chloride 0.9% 100 ML IVPB SCH ×2 (00:04→06:16)
[2017-12-13] MEDS: Vancomycin HCl 1 GM in Premix Bag 1 BAG IVPB SCH (03:56)
[2017-12-13 05:12] LABS: #Basophils 0.1 thou/uL (0.0-0.2); #Eosinphils 0.1 thou/uL (0.0-0.7); #Lymphocytes 3.4 thou/uL (1.20-3.40); #Monocytes 1.7 thou/uL (0.11-0.59); %Basophils 0.6 % (0.0-1.0); %Eosinophils 0.5 % (0.0-10.0); %Lymphocytes 18.3 % (21.0-51.0); %Monocytes 9.5 % (0.0-10.0); %Neutrophils 71.1 % (42.0-75.0); Hemoglobin 9.9 g/dL (14.0-18.0); Mean Corpuscular HGB CONC 33.1 g/dL (32.0-36.0); Mean Corpuscular Hemoglobin 28.9 pg (27.0-31.0); Mean Corpuscular Volume 87.4 fl (80.0-94.0); Platelet Count 502 thou/uL (130-400); Red Blood Cell (RBC) Count 3.41 mill/uL (4.70-6.10); White Blood Cell (WBC) Count 18.3 thou/uL (4.8-10.8)
[2017-12-13 05:35] LABS: Anion Gap 8 mmol/L (10-20); BUN (Urea Nitrogen) 7 mg/dL (8.4-25.7); Calc. Creatinine Clearance 92 mL/min (70-130); Calcium 8.2 mg/dL (7.8-10.44); Carbon Dioxide 23 mmol/L (22-29); Chloride 102 mmol/L (98-107); Estimated GFR-MDRD Greater than 90; Glucose 138 mg/dL (70-105); Potassium 4.1 mmol/L (3.5-5.1); Sodium 129 mmol/L (136-145)
[2017-12-13] MEDS: HYDROcodone/Acetaminophen 10/325 mg Tablet PO PRN ×2 (07:37→14:00)
[2017-12-13 11:26] LABS: Vancomycin, Trough 24.4 ug/mL
[2017-12-13] MEDS ORDERED: Amoxicillin/Potassium Clav 875 MG TAB PO SCH (11:45)
--- NOTE | 2017-12-13 12:20 | PRG ---
DATE OF SERVICE: 12/13/2017 SERVICE: Pulmonary Medicine. INTERVAL HISTORY: The patient is doing really well from a cardiovascular and respiratory standpoint. He is breathing comfortably. He denies any current fevers, chills, nausea, vomiting or chest disco mfort. He did have some chest tube site pain. Outside of this, he has no specific complaints. He d id not get out of bed yesterday. We will see if we can fix that today. Otherwise, there has been no interval change to his condition. Nursing reports no events. PHYSICAL EXAMINATION: VITAL SIGNS: Afebrile, pulse 113, blood pressure 122/80, respirations 33, saturation 99% on room air . GENERAL: The patient is awake and alert. No apparent distress. LUNGS: Decent air entry. There is no prolonged expiratory phase or wheezing. Rhonchi are present, but changed with cough. HEART: Tachycardic. Regular. ABDOMEN: Soft, nontender, and nondistended. Bowel sounds are positive. MUSCULOSKELETAL: No cyanosis or clubbing. No pitting in the bilateral lower extremities. NEUROLOGIC: Grossly nonfocal. LABORATORY DATA: WBC 18.3, hemoglobin 9.9, and platelets 502,000. Neutrophil count is 71%. Sodium 129 and gently up trending. Basic metabolic profile is otherwise unremarkable. Vancomycin trough is 24. Hepatitis C, HIV, syphilis all unremarkable. The left pleural fluid culture is growing Staph a ureus, which is sensitive to oxacillin. Blood cultures x2 are unremarkable. ASSESSMENT: 1. Acute hypoxic respiratory failure, resolved. 2. Septic shock, resolved. 3. Empyema on the left. 4. Thoracotomy with decortication, postop day #2. 5. Type 2 diabetes mellitus, DISCUSSION AND PLAN: The patient is doing really well from a respiratory standpoint. We will work o n mobilizing him today. We can switch him over to p.o. Augmentin and likely continue therapy for a p rotracted course. I will leave that, however, to Dr. Echeverria to decide. He will remain in the ICU for the time being, but hopefully in 24-48 hours, we will be able to get him out of the ICU.
--- NOTE | 2017-12-13 15:06 | PDOC.PN ---
- Subjective Encounter Start Date: 12/13/17 Encounter Start Time: 15:04 Subjective: feels much better.no pain at chest tube site.breathing easier - Objective MAR Reviewed: Yes Vital Signs & Weight: Vital Signs (12 hours) Temp Pulse Resp Pulse Ox 12/13/17 12:00 98.8 F 12/13/17 07:10 98.4 F 105 H 25 H 100 12/13/17 07:00 98.4 F 12/13/17 04:00 98.8 F Weight Weight 148 lb Most Recent Monitor Data Heart Rate from ECG 97 NIBP 146/79 NIBP BP-Mean 98 Respiration from ECG 27 SpO2 100 I&O: 12/12/17 12/13/17 12/14/17 06:59 06:59 06:59 Intake Total 3120 3120 720 Output Total 1543 1725 700 Balance 1577 1395 20 Result Diagrams: 12/13/17 04:50 12/13/17 04:50 Additional Labs: Accuchecks 12/12/17 12/12/17 12/11/17 21:06 15:58 14:45 POC Glucose 147 H 132 H 68 L Microbiology 12/11/17 05:30 Nasal swab Influenza Types A,B Direct EIA - Final 12/11/17 12:40 Pleural - Left Bacterial Culture - Preliminary 12/11/17 12:40 Pleural - Left Staphylococcus aureus 12/11/17 07:40 Venous blood - Left Arm Blood Culture - Preliminary Specimen has been received and culture in progress. No Growth to date. 12/11/17 07:40 Venous blood - Left Arm Blood Culture - Preliminary NO GROWTH AT 48 HOURS 12/11/17 07:28 Venous blood - Right Arm Blood Culture - Preliminary Specimen has been received and culture in progress. No Growth to date. 12/11/17 07:28 Venous blood - Right Arm Blood Culture - Preliminary NO GROWTH AT 48 HOURS Laboratory Tests 12/11/17 12/11/17 12/12/17 07:28 15:19 04:20 Sodium 124 L 128 L 128 L Syphilis IgG/IgM Ab Hepatitis C Antibody HIV 1&2 Antigen & Ab 12/12/17 12/12/17 12/13/17 11:10 11:10 04:50 Sodium 129 L Syphilis IgG/IgM Ab Nonreactive Hepatitis C Antibody Non-Reactive HIV 1&2 Antigen & Ab Non-Reactive Phys Exam - Physical Examination Constitutional: NAD HEENT: PERRLA, moist MMs, sclera anicteric, oral pharynx no lesions Neck: no nodes, no JVD, supple, full ROM Respiratory: no wheezing, no rales, no rhonchi, clear to auscultation bilateral Chest tubes on Left side Cardiovascular: RRR, no significant murmur Gastrointestinal: soft, non-tender, no distention, positive bowel sounds Musculoskeletal: no edema, pulses present Neurological: non-focal, normal sensation, moves all 4 limbs Psychiatric: normal affect, A&O x 3 Skin: no rash Dx/Plan (1) Empyema lung Code(s): J86.9 - PYOTHORAX WITHOUT FISTULA Status: Acute Comment: s/p decortication & thoracotomy 12/11/17.Chest Tube in place (2) Septic shock Code(s): A41.9 - SEPSIS, UNSPECIFIED ORGANISM; R65.21 - SEVERE SEPSIS WITH SEPTIC SHOCK Status: Resolved (3) Hyponatremia Code(s): E87.1 - HYPO-OSMOLALITY AND HYPONATREMIA Status: Acute Comment: Stable.trang SÁNCHEZ d/t Empyema. (4) DM2 (diabetes mellitus, type 2) Status: Chronic Qualifiers: Diabetes mellitus complication status: with hyperglycemia (5) Acute blood loss as cause of postoperative anemia Code(s): D62 - ACUTE POSTHEMORRHAGIC ANEMIA Status: Acute Comment: Stable H/ H post 2 unit PRBC on 12/11/17 (6) HTN (hypertension) Code(s): I10 - ESSENTIAL (PRIMARY) HYPERTENSION Status: Chronic Comment: Lisinopril on hold as BP was low - Plan continue antibiotics, PT/OT, out of bed/ambulate, DVT proph w/SCDs MSSA.on Vancomycin.ID following. CT in place.CTVS,PCCM following -: will increase ambulation. -: HD stable.blood sugar stable.ISS -: am labs * . Review of Systems - Review of Systems Constitutional: weakness, malaise. negative: fever, chills, sweats, other ENT: negative: Ear Pain, Ear Discharge, Nose Pain, Nose Discharge, Nose Congestion, Mouth Pain, Mouth Swelling, Throat Pain, Throat Swelling, Other Respiratory: negative: Cough, Dry, Shortness of Breath, Hemoptysis, SOB with Excertion, Pleuritic Pain, Sputum, Wheezing Cardiovascular: negative: chest pain, palpitations, orthopnea, paroxysmal nocturnal dyspnea, edema, light headedness, other Gastrointestinal: negative: Nausea, Vomiting, Abdominal Pain, Diarrhea, Constipation, Melena, Hematochezia, Other Genitourinary: negative: Dysuria, Frequency, Incontinence, Hematuria, Retention , Other Musculoskeletal: negative: Neck Pain, Shoulder Pain, Arm Pain, Back Pain, Hand Pain, Leg Pain, Foot Pain, Other Neurological: negative: Weakness, Numbness, Incoordination, Change in Speech, Confusion, Seizures, Other - Medications/Allergies Allergies/Adverse Reactions: Allergies Allergy/AdvReac Type Severity Reaction Status Date / Time No Known Drug Allergies Allergy Verified 10/31/17 06:20 Medications: Current Medications Acetaminophen (Tylenol) 650 mg PO Q4H PRN PRN Reason: Headache/Fever or Pain Hydrocodone Bitart/Acetaminophen ([place] 10/325) 1 tab PO Q4H PRN PRN Reason: Pain Last Admin: 12/13/17 14:00 Dose: 1 tab Al Hydroxide/Mg Hydroxide (Maalox) 30 ml PO Q6H PRN PRN Reason: Heartburn or Indigestion Amoxicillin/Clavulanate Potassium (Augmentin) 875 mg PO Q12HR GABBY Bisacodyl (Dulcolax) 10 mg PO DAILYPRN PRN PRN Reason: Constipation Calcium Carbonate (Tums) 1,000 mg PO Q4H PRN PRN Reason: Heartburn or Indigestion Cephalexin (Keflex) 500 mg PO Q6HR GABBY Dextrose/Water (Dextrose 50%) 25 gm SLOW IVP PRN PRN PRN Reason: Hypoglycemia Glucagon (Glucagon) 1 mg IM PRN PRN PRN Reason: Hypoglycemia Guaifenesin (Robitussin Sf) 200 mg PO Q4H PRN PRN Reason: Cough Hydralazine HCl (Apresoline) 10 mg SLOW IVP Q4H PRN PRN Reason: Systolic BP > 180 Dextrose/Water (D5w) 1,000 mls @ 0 mls/hr IV .Q0M PRN; As Directed PRN Reason: Hypoglycemia Potassium Chloride 40 meq/ (Sodium Chloride) 270 mls @ 135 mls/hr IVPB ASDIR PRN PRN Reason: FOR SERUM K+ 2.5 - 3.5 Potassium Chloride 40 meq/ (Device) 100 mls @ 50 mls/hr IVPB ASDIR PRN PRN Reason: FOR SERUM K+ 2.5 - 3.5 Magnesium Sulfate 1 gm/ Sodium (Chloride) 102 mls @ 102 mls/hr IV PRN PRN PRN Reason: MAG LEVEL 1.4 - 2.0 Magnesium Sulfate 2 gm/ Device 100 mls @ 100 mls/hr IVPB ASDIR PRN PRN Reason: MAGNESIUM < 1.4 Potassium Phosphate 9 mmol/ (Sodium Chloride) 103 mls @ 25.75 mls/hr IVPB ASDIR PRN PRN Reason: Phosphate 1.0-1.8 Potassium Phosphate 12 mmol/ (Sodium Chloride) 254 mls @ 63.5 mls/hr IV ASDIR PRN PRN Reason: Serum phosphate 0.5-0.9 Potassium Phosphate 15 mmol/ (Sodium Chloride) 255 mls @ 63.75 mls/hr IV ASDIR PRN PRN Reason: Serum Phos < 0.5 Sodium Chloride (Normal Saline 0.9%) 1,000 mls @ 0 mls/hr IV .Q0M GABBY PRN Reason: KVO Insulin Human Lispro (Humalog) 0 units SC .MODERATE SLIDING SC PRN PRN Reason: Moderate Correctional Scale Insulin Human Lispro (Humalog) 0 units SC .BEDTIME SLIDING SC PRN PRN Reason: Bedtime Correctional Scale Loratadine (Claritin) 10 mg PO DAILYPRN PRN PRN Reason: Sinus Symptoms Magnesium Oxide (Magnesium Oxide) 400 mg PO BIDPRN PRN PRN Reason: FOR SERUM MAG 1.4 - 2.0 Magnesium Oxide (Magnesium Oxide) 800 mg PO PRN PRN PRN Reason: FOR SERUM MAG < 1.4 Miscellaneous Medication (Phos-Nak) 1 pkt PO TIDPRN PRN PRN Reason: FOR PHOS LEVEL 1.0 - 1.8 Miscellaneous Medication (Phos-Nak) 2 pkt PO TIDPRN PRN PRN Reason: FOR PHOS LEVEL 0.5 - 1.0 Nitroglycerin (Nitrostat) 0.4 mg SL Q5MIN PRN PRN Reason: Chest Pain Ccu Electrolyte (Replacement Protocol) 0 each FS PRN PRN PRN Reason: FOR ELECTROLYTE REPLACEMENT Ondansetron HCl (Zofran) 4 mg IVP Q6H PRN PRN Reason: Nausea/Vomiting Potassium Chloride (K-Dur) 40 meq PO ASDIR PRN PRN Reason: FOR SERUM K+ 2.5 - 3.5 Potassium Chloride (Klor-Con) 40 meq PER TUBE ASDIR PRN PRN Reason: FOR SERUM K+ 2.5-3.5 Senna (Senokot) 2 tab PO HSPRN PRN PRN Reason: Constipation Sodium Chloride (Flush - Normal Saline) 10 ml IVF PRN PRN PRN Reason: Saline Flush
[2017-12-13] MEDS: Cephalexin 250 MG CAP PO SCH ×2 (19:31→23:57)
[2017-12-13] MEDS: Amoxicillin/Potassium Clav 875 MG TAB PO SCH (20:03)
[2017-12-14 04:58] LABS: #Basophils 0.1 thou/uL (0.0-0.2); #Eosinphils 0.2 thou/uL (0.0-0.7); #Lymphocytes 3.4 thou/uL (1.20-3.40); #Monocytes 1.6 thou/uL (0.11-0.59); %Basophils 0.6 % (0.0-1.0); %Lymphocytes 19.9 % (21.0-51.0); %Monocytes 9.3 % (0.0-10.0); %Neutrophils 69.2 % (42.0-75.0); Mean Corpuscular Hemoglobin 27.9 pg (27.0-31.0); Mean Corpuscular Volume 87.4 fl (80.0-94.0); Mean Platelet Volume 6.2 fL (7.4-10.4); Platelet Count 526 thou/uL (130-400); RBC Distribution Width 17.1 % (11.5-14.5); Red Blood Cell (RBC) Count 3.57 mill/uL (4.70-6.10); White Blood Cell (WBC) Count 17.3 thou/uL (4.8-10.8)
[2017-12-14 05:04] LABS: Anion Gap 8 mmol/L (10-20); BUN (Urea Nitrogen) 9 mg/dL (8.4-25.7); Calc. Creatinine Clearance 88 mL/min (70-130); Calcium 8.3 mg/dL (7.8-10.44); Carbon Dioxide 23 mmol/L (22-29); Chloride 102 mmol/L (98-107); Estimated GFR-MDRD Greater than 90; Glucose 79 mg/dL (70-105); Potassium 4.2 mmol/L (3.5-5.1); Sodium 129 mmol/L (136-145)
[2017-12-14] MEDS: HYDROcodone/Acetaminophen 10/325 mg Tablet PO PRN ×2 (06:02→16:02)
[2017-12-14] MEDS: Cephalexin 250 MG CAP PO SCH ×4 (06:03→23:05)
[2017-12-14] MEDS: Amoxicillin/Potassium Clav 875 MG TAB PO SCH ×2 (08:31→20:38)
--- NOTE | 2017-12-14 12:53 | PRG ---
DATE OF SERVICE: 12/14/2017 SERVICE: Pulmonary Medicine. INTERVAL HISTORY: The patient is doing fine from a cardiovascular and respiratory standpoint. He is breathing very comfortably. He has no complaints of chills, nausea, vomiting or fevers. Otherwise, he is really happy with way things are going. He has been up and walking the hallways with physical therapy earlier. I think he is stable for transition out of the ICU. PHYSICAL EXAMINATION: VITAL SIGNS: Afebrile, pulse 102, blood pressure 136/80, respirations 22, saturation 99% on room air . GENERAL: The patient is awake and alert, no apparent distress. LUNGS: Decent air entry. Rhonchi and crackles are present on the left. HEENT: Normocephalic, atraumatic. Sclerae are white, conjunctivae pink. Oral and nasal mucosa is m oist without lesions. HEART: Tachycardic. Regular. ABDOMEN: Soft, nontender, nondistended. Bowel sounds are positive. MUSCULOSKELETAL: No cyanosis or clubbing. There is no pitting in the bilateral lower extremities. NEUROLOGIC: Grossly nonfocal. LABORATORY DATA: WBC 17.3, hemoglobin 10.0, platelets 526,000 and improving. Sodium is 129 and gent ly improving. Basic metabolic profile is otherwise unremarkable. Pleural fluid is growing Staph aur eus on the left, which is sensitive to Augmentin. ASSESSMENT: 1. Acute hypoxic respiratory failure, resolved. 2. Septic shock, resolved. 3. Empyema on the left, status post trauma 1 month ago. 4. Thoracotomy with decortication, postoperative day #3. 5. Type 2 diabetes mellitus. DISCUSSION AND PLAN: There is a peristent air leak albeit improved. The patient can be transitioned to the floor. We will continue to follow on a day by day basis. Mobilization efforts will be bandar nued as this will speed his recovery. I will continue to follow while he remains in the hospital.
--- NOTE | 2017-12-14 15:39 | PDOC.PN ---
- Subjective Encounter Start Date: 12/14/17 Encounter Start Time: 15:37 Subjective: feels better. walked w walking program today -: denies any CP/SOB/ESTEVEZ - Objective MAR Reviewed: Yes Vital Signs & Weight: Vital Signs (12 hours) Temp Pulse Resp Pulse Ox 12/14/17 12:00 98.6 F 12/14/17 07:13 97.5 F L 112 H 24 H 98 12/14/17 04:00 98.5 F Weight Weight 149 lb 14.629 oz Most Recent Monitor Data Heart Rate from ECG 109 NIBP 131/78 NIBP BP-Mean 97 Respiration from ECG 23 SpO2 98 I&O: 12/13/17 12/14/17 12/15/17 06:59 06:59 06:59 Intake Total 3120 2260 480 Output Total 1725 2550 500 Balance 1395 -290 -20 Result Diagrams: 12/14/17 04:24 12/14/17 04:24 Additional Labs: Accuchecks 12/14/17 12/13/17 12/13/17 06:13 21:49 16:14 POC Glucose 102 97 99 Microbiology 12/11/17 12:40 Pleural - Left Bacterial Culture - Final 12/11/17 12:40 Pleural - Left Anaerobic Culture - Final Staphylococcus aureus 12/11/17 05:30 Nasal swab Influenza Types A,B Direct EIA - Final 12/11/17 07:40 Venous blood - Left Arm Blood Culture - Preliminary NO GROWTH AT 48 HOURS 12/11/17 07:28 Venous blood - Right Arm Blood Culture - Preliminary NO GROWTH AT 48 HOURS Phys Exam - Physical Examination Constitutional: NAD HEENT: PERRLA, moist MMs, sclera anicteric, oral pharynx no lesions Neck: no nodes, no JVD, supple, full ROM Respiratory: no wheezing, no rales, no rhonchi, clear to auscultation bilateral Cardiovascular: RRR, no significant murmur Gastrointestinal: soft, non-tender, no distention, positive bowel sounds Musculoskeletal: no edema, pulses present Neurological: non-focal, normal sensation, moves all 4 limbs Psychiatric: normal affect, A&O x 3 Skin: no rash Dx/Plan (1) Empyema lung Code(s): J86.9 - PYOTHORAX WITHOUT FISTULA Status: Acute Comment: s/p decortication & thoracotomy 12/11/17.Chest Tube in place (2) Hyponatremia Code(s): E87.1 - HYPO-OSMOLALITY AND HYPONATREMIA Status: Acute Comment: Stable.trang SÁNCHEZ d/t Empyema. (3) DM2 (diabetes mellitus, type 2) Status: Chronic Qualifiers: Diabetes mellitus complication status: with hyperglycemia Comment: Pt denies history of same (4) Acute blood loss as cause of postoperative anemia Code(s): D62 - ACUTE POSTHEMORRHAGIC ANEMIA Status: Acute Comment: Stable H/ H post 2 unit PRBC on 12/11/17 (5) HTN (hypertension) Code(s): I10 - ESSENTIAL (PRIMARY) HYPERTENSION Status: Chronic Comment: Lisinopril on hold as BP was low (6) Septic shock Code(s): A41.9 - SEPSIS, UNSPECIFIED ORGANISM; R65.21 - SEVERE SEPSIS WITH SEPTIC SHOCK Status: Resolved - Plan continue antibiotics, PT/OT, respiratory therapy, incentive spirometry, out of bed/ambulate, DVT proph w/SCDs MSSA but resistant to Amox.? stop Augmentin.On Keflex.defer to ID -: cont supportive care. Chest tubes in place.managed by CTVS -: monitor Sodium.stable. -: WBC still high.? reactive.not on steroids.monitor -: clinically better. * . Review of Systems - Review of Systems Constitutional: weakness Respiratory: Cough, Dry Cardiovascular: negative: chest pain, palpitations, orthopnea, paroxysmal nocturnal dyspnea, edema, light headedness, other Gastrointestinal: negative: Nausea, Vomiting, Abdominal Pain, Diarrhea, Constipation, Melena, Hematochezia, Other Genitourinary: negative: Dysuria, Frequency, Incontinence, Hematuria, Retention , Other Musculoskeletal: negative: Neck Pain, Shoulder Pain, Arm Pain, Back Pain, Hand Pain, Leg Pain, Foot Pain, Other Skin: negative: Rash, Lesions, Norman, Bruising, Other Neurological: negative: Weakness, Numbness, Incoordination, Change in Speech, Confusion, Seizures, Other - Medications/Allergies Allergies/Adverse Reactions: Allergies Allergy/AdvReac Type Severity Reaction Status Date / Time No Known Drug Allergies Allergy Verified 10/31/17 06:20 Medications: Current Medications Acetaminophen (Tylenol) 650 mg PO Q4H PRN PRN Reason: Headache/Fever or Pain Hydrocodone Bitart/Acetaminophen ([place] 10/325) 1 tab PO Q4H PRN PRN Reason: Pain Last Admin: 12/14/17 06:02 Dose: 1 tab Al Hydroxide/Mg Hydroxide (Maalox) 30 ml PO Q6H PRN PRN Reason: Heartburn or Indigestion Amoxicillin/Clavulanate Potassium (Augmentin) 875 mg PO Q12HR [facility] Last Admin: 12/14/17 08:31 Dose: 875 mg Bisacodyl (Dulcolax) 10 mg PO DAILYPRN PRN PRN Reason: Constipation Calcium Carbonate (Tums) 1,000 mg PO Q4H PRN PRN Reason: Heartburn or Indigestion Cephalexin (Keflex) 500 mg PO Q6HR [facility] Last Admin: 12/14/17 11:44 Dose: 500 mg Dextrose/Water (Dextrose 50%) 25 gm SLOW IVP PRN PRN PRN Reason: Hypoglycemia Glucagon (Glucagon) 1 mg IM PRN PRN PRN Reason: Hypoglycemia Guaifenesin (Robitussin Sf) 200 mg PO Q4H PRN PRN Reason: Cough Hydralazine HCl (Apresoline) 10 mg SLOW IVP Q4H PRN PRN Reason: Systolic BP > 180 Dextrose/Water (D5w) 1,000 mls @ 0 mls/hr IV .Q0M PRN; As Directed PRN Reason: Hypoglycemia Insulin Human Lispro (Humalog) 0 units SC .MODERATE SLIDING SC PRN PRN Reason: Moderate Correctional Scale Insulin Human Lispro (Humalog) 0 units SC .BEDTIME SLIDING SC PRN PRN Reason: Bedtime Correctional Scale Loratadine (Claritin) 10 mg PO DAILYPRN PRN PRN Reason: Sinus Symptoms Ccu Electrolyte (Replacement Protocol) 0 each FS PRN PRN PRN Reason: FOR ELECTROLYTE REPLACEMENT Ondansetron HCl (Zofran) 4 mg IVP Q6H PRN PRN Reason: Nausea/Vomiting Senna (Senokot) 2 tab PO HSPRN PRN PRN Reason: Constipation Sodium Chloride (Flush - Normal Saline) 10 ml IVF PRN PRN PRN Reason: Saline Flush
[2017-12-14] MEDS: Sodium Chloride 0.9% 1,000 ML IV SCH (19:31)
[2017-12-15] MEDS: Cephalexin 250 MG CAP PO SCH ×3 (06:19→18:43)
[2017-12-15] MEDS: HYDROcodone/Acetaminophen 10/325 mg Tablet PO PRN ×2 (06:35→10:10)
[2017-12-15] MEDS: Amoxicillin/Potassium Clav 875 MG TAB PO SCH ×2 (08:27→19:48)
[2017-12-15] MEDS ORDERED: Polyethylene Glycol 3350 17 GM Packet PO SCH (13:15)
--- NOTE | 2017-12-15 13:28 | PRG ---
DATE OF SERVICE: 12/15/2017 SERVICE: Pulmonary Medicine. INTERVAL HISTORY: The patient is doing great from a respiratory standpoint. He is breathing comfort ably. He denies any current fevers, chills, nausea, vomiting or chest discomfort. Otherwise, there has been no interval change to his condition. He got up walking today. He has absolutely no complai nts there. He got a laxative yesterday and was able to have some bowel movements. He is hoping to g et a daily dose. PHYSICAL EXAMINATION: VITAL SIGNS: Afebrile, pulse 101, blood pressure 137/82, respirations 22, saturation 97% on room air . GENERAL: The patient is awake, alert, in no apparent distress. LUNGS: Decent air entry. There is no prolonged expiratory phase. Rhonchi and rubs are present on t he left. A change with cough, but do not clear. HEART: Normal rate, regular. ABDOMEN: Soft, nontender, nondistended. Bowel sounds are positive. MUSCULOSKELETAL: No cyanosis or clubbing. No pitting in the bilateral lower extremities. NEUROLOGIC: Grossly nonfocal. ASSESSMENT: 1. Acute hypoxic respiratory failure, resolved. 2. Septic shock, resolved. 3. Empyema on the left status post trauma, 1 month ago. 4. Thoracotomy with decortication, postop day #4. 5. Type 2 diabetes mellitus. DISCUSSION AND PLAN: There is a persistent air leak. It is very slow to improve, but it is improvin g. We will continue our mobilization efforts while the patient remains confined to the hospital, bec ause of this leak. I will repeat a CBC, and basic metabolic profile tomorrow looking at the sodium, and white blood cell count. Hopefully, this trends in the right direction.
--- NOTE | 2017-12-15 15:01 | PDOC.PN ---
- Subjective Encounter Start Date: 12/15/17 Encounter Start Time: 14:59 Subjective: feels good. had chest tube site cleaned today -: no pain currently. -: denies any SOB.walked again w PT - Objective MAR Reviewed: Yes Vital Signs & Weight: Vital Signs (12 hours) Temp Pulse Resp BP Pulse Ox 12/15/17 11:55 98.0 F 101 H 22 H 137/82 97 12/15/17 07:45 98.1 F 112 H 24 H 138/83 95 12/15/17 04:00 99.2 F 113 H 19 155/88 H 93 L Weight Weight 149 lb 14.629 oz Most Recent Monitor Data Heart Rate from ECG 109 NIBP 146/89 NIBP BP-Mean 103 Respiration from ECG 21 SpO2 100 I&O: 12/14/17 12/15/17 12/16/17 06:59 06:59 06:59 Intake Total 2260 1420 Output Total 2550 3295 90 Balance -290 -1875 -90 Result Diagrams: 12/14/17 04:24 12/14/17 04:24 Additional Labs: Accuchecks 12/15/17 12/14/17 06:13 15:59 POC Glucose 81 117 H Microbiology 12/11/17 12:40 Pleural - Left Bacterial Culture - Final 12/11/17 12:40 Pleural - Left Anaerobic Culture - Final Staphylococcus aureus 12/11/17 05:30 Nasal swab Influenza Types A,B Direct EIA - Final 12/11/17 07:40 Venous blood - Left Arm Blood Culture - Preliminary NO GROWTH AT 48 HOURS 12/11/17 07:28 Venous blood - Right Arm Blood Culture - Preliminary NO GROWTH AT 48 HOURS Phys Exam - Physical Examination Constitutional: NAD HEENT: PERRLA, moist MMs, sclera anicteric, oral pharynx no lesions Neck: no nodes, no JVD, supple, full ROM Respiratory: no wheezing chest tubes Left side Cardiovascular: RRR, no significant murmur Gastrointestinal: soft, non-tender, no distention, positive bowel sounds Musculoskeletal: no edema, pulses present Neurological: non-focal, normal sensation, moves all 4 limbs Psychiatric: normal affect, A&O x 3 Skin: no rash Dx/Plan (1) Empyema lung Code(s): J86.9 - PYOTHORAX WITHOUT FISTULA Status: Acute Comment: s/p decortication & thoracotomy 2/4/18.Chest Tube in place (2) Hyponatremia Code(s): E87.1 - HYPO-OSMOLALITY AND HYPONATREMIA Status: Acute Comment: Stable.trang SÁNCHEZ d/t Empyema. (3) DM2 (diabetes mellitus, type 2) Status: Chronic Qualifiers: Diabetes mellitus complication status: with hyperglycemia Comment: Pt denies history of same (4) Acute blood loss as cause of postoperative anemia Code(s): D62 - ACUTE POSTHEMORRHAGIC ANEMIA Status: Acute Comment: Stable H/ H post 2 unit PRBC on 12/11/17 (5) HTN (hypertension) Code(s): I10 - ESSENTIAL (PRIMARY) HYPERTENSION Status: Chronic Comment: Lisinopril on hold as BP was low (6) Septic shock Code(s): A41.9 - SEPSIS, UNSPECIFIED ORGANISM; R65.21 - SEVERE SEPSIS WITH SEPTIC SHOCK Status: Resolved - Plan continue antibiotics, PT/OT, respiratory therapy, incentive spirometry, out of bed/ambulate, DVT proph w/SCDs cont Keflex.MSSA resistant to Amoxcillin? DC augmentin-defer to PCCM -: clinically better.CTVS following.Chest tube care per Dr. Mehta -: air leak persistant.on suction -: am labs * . Review of Systems - Review of Systems Constitutional: weakness ENT: negative: Ear Pain, Ear Discharge, Nose Pain, Nose Discharge, Nose Congestion, Mouth Pain, Mouth Swelling, Throat Pain, Throat Swelling, Other Respiratory: negative: Cough, Dry, Shortness of Breath, Hemoptysis, SOB with Excertion, Pleuritic Pain, Sputum, Wheezing Cardiovascular: negative: chest pain, palpitations, orthopnea, paroxysmal nocturnal dyspnea, edema, light headedness, other Gastrointestinal: negative: Nausea, Vomiting, Abdominal Pain, Diarrhea, Constipation, Melena, Hematochezia, Other Genitourinary: negative: Dysuria, Frequency, Incontinence, Hematuria, Retention , Other Musculoskeletal: negative: Neck Pain, Shoulder Pain, Arm Pain, Back Pain, Hand Pain, Leg Pain, Foot Pain, Other Skin: negative: Rash, Lesions, Norman, Bruising, Other Neurological: negative: Weakness, Numbness, Incoordination, Change in Speech, Confusion, Seizures, Other - Medications/Allergies Allergies/Adverse Reactions: Allergies Allergy/AdvReac Type Severity Reaction Status Date / Time No Known Drug Allergies Allergy Verified 10/31/17 06:20 Medications: Current Medications Acetaminophen (Tylenol) 650 mg PO Q4H PRN PRN Reason: Headache/Fever or Pain Hydrocodone Bitart/Acetaminophen ([place] 5/325) 1 tab PO Q4H PRN PRN Reason: Moderate Pain (4-6) Al Hydroxide/Mg Hydroxide (Maalox) 30 ml PO Q6H PRN PRN Reason: Heartburn or Indigestion Amoxicillin/Clavulanate Potassium (Augmentin) 875 mg PO Q12HR [facility] Last Admin: 12/15/17 08:27 Dose: 875 mg Bisacodyl (Dulcolax) 10 mg PO DAILYPRN PRN PRN Reason: Constipation Last Admin: 12/15/17 08:31 Dose: 10 mg Calcium Carbonate (Tums) 1,000 mg PO Q4H PRN PRN Reason: Heartburn or Indigestion Cephalexin (Keflex) 500 mg PO Q6HR [facility] Last Admin: 12/15/17 12:13 Dose: 500 mg Dextrose/Water (Dextrose 50%) 25 gm SLOW IVP PRN PRN PRN Reason: Hypoglycemia Glucagon (Glucagon) 1 mg IM PRN PRN PRN Reason: Hypoglycemia Guaifenesin (Robitussin Sf) 200 mg PO Q4H PRN PRN Reason: Cough Hydralazine HCl (Apresoline) 10 mg SLOW IVP Q4H PRN PRN Reason: Systolic BP > 180 Dextrose/Water (D5w) 1,000 mls @ 0 mls/hr IV .Q0M PRN; As Directed PRN Reason: Hypoglycemia Insulin Human Lispro (Humalog) 0 units SC .MODERATE SLIDING SC PRN PRN Reason: Moderate Correctional Scale Insulin Human Lispro (Humalog) 0 units SC .BEDTIME SLIDING SC PRN PRN Reason: Bedtime Correctional Scale Lisinopril (Zestril) 5 mg PO DAILY GABBY Loratadine (Claritin) 10 mg PO DAILYPRN PRN PRN Reason: Sinus Symptoms Ccu Electrolyte (Replacement Protocol) 0 each FS PRN PRN PRN Reason: FOR ELECTROLYTE REPLACEMENT Ondansetron HCl (Zofran) 4 mg IVP Q6H PRN PRN Reason: Nausea/Vomiting Polyethylene Glycol (Miralax) 17 gm PO DAILY [facility] Polyethylene Glycol (Miralax) 17 gm PO NOW GABYB Stop: 12/15/17 15:15 Senna (Senokot) 2 tab PO HSPRN PRN PRN Reason: Constipation
--- NOTE | 2017-12-15 17:38 | PRG ---
DATE OF SERVICE: 12/09/2017 SUBJECTIVE: The patient has been transferred to the floor. He still has a chest tube in. He denies any headaches. Appetite is great. Still constipated. Minimal pain. Voiding without difficulty. OBJECTIVE: VITAL SIGNS: T-max 99.2, blood pressure 130/80, pulse 107, respirations 20, O2 sat 97%. GENERAL: Appears in no distress. Pleasant. LUNGS: Diminished breath sounds in the left side, chest tube. CARDIAC: S1, S2, regular rate. ABDOMEN: Soft, nontender, a little bit of distention. Bowel sounds are present. EXTREMITIES: Moves all extremities equally. No IV access at this time. LABORATORY DATA: White cell count 17.3 yesterday, hemoglobin 10, platelets 526, 69% neutrophils, cre atinine 0.93. No new microbiology info. ASSESSMENT AND DISCUSSION: Homelessness, traumatic injury, chest wall with chest tube and then compo sed tube infection status post decortication. The patient has been transitioned to oral antimicrobia l therapy. His is methicillin-sensitive susceptible. I have to continue monitoring his inflam matory markers and clinical progress as well as radiological progress to make sure that there is no r ecrudescence of the infection with the oral antimicrobial therapy. Duration of therapy probably 3-4 weeks.
[2017-12-15] MEDS: HYDROcodone/Acetaminophen 5/325 mg Tablet PO PRN (19:47)
[2017-12-16] MEDS: Cephalexin 250 MG CAP PO SCH ×5 (00:25→23:51)
[2017-12-16 06:08] LABS: #Basophils 0.1 thou/uL (0.0-0.2); #Eosinphils 0.3 thou/uL (0.0-0.7); #Lymphocytes 3.1 thou/uL (1.20-3.40); #Monocytes 1.1 thou/uL (0.11-0.59); #Neutrophils 9.9 thou/uL (1.40-6.50); %Basophils 0.4 % (0.0-1.0); %Eosinophils 1.8 % (0.0-10.0); %Lymphocytes 21.7 % (21.0-51.0); %Monocytes 7.3 % (0.0-10.0); %Neutrophils 68.8 % (42.0-75.0); Hemoglobin 9.2 g/dL (14.0-18.0); Mean Corpuscular Hemoglobin 28.8 pg (27.0-31.0); Mean Corpuscular Volume 87.3 fl (80.0-94.0); Platelet Count 432 thou/uL (130-400); RBC Distribution Width 17.5 % (11.5-14.5); Red Blood Cell (RBC) Count 3.19 mill/uL (4.70-6.10); White Blood Cell (WBC) Count 14.5 thou/uL (4.8-10.8)
[2017-12-16 06:23] LABS: Anion Gap 8 mmol/L (10-20); BUN (Urea Nitrogen) 7 mg/dL (8.4-25.7); Calc. Creatinine Clearance 101 mL/min (70-130); Calcium 8.2 mg/dL (7.8-10.44); Carbon Dioxide 27 mmol/L (22-29); Chloride 102 mmol/L (98-107); Estimated GFR-MDRD Greater than 90; Glucose 83 mg/dL (70-105); Potassium 4.2 mmol/L (3.5-5.1); Sodium 133 mmol/L (136-145)
[2017-12-16] MEDS: HYDROcodone/Acetaminophen 5/325 mg Tablet PO PRN ×3 (07:36→17:59)
[2017-12-16] MEDS: Amoxicillin/Potassium Clav 875 MG TAB PO SCH ×2 (08:29→21:23)
[2017-12-16] MEDS: Lisinopril 5 MG TAB PO SCH (08:29)
[2017-12-16] MEDS: Polyethylene Glycol 3350 17 GM Packet PO SCH (08:30)
--- NOTE | 2017-12-16 09:08 | RAD ---
CHEST 1 VIEW: HISTORY: Chest tubes. Followup. COMPARISON: 12/12/17. FINDINGS: Cardiac silhouette is magnified by projection. Pulmonary vasculature remains engorged. Slight leftw shawn shift in the mediastinum is similar in appearance to the prior study. Left thoracostomy tubes re main in place. Left subclavian central venous catheter is stable. Endotracheal catheter and nasogas tric tube are no longer visible. Hazy opacity over the right lower lobe and linear atelectasis projecting over the lateral aspect of t he right chest have increased slightly. IMPRESSION: 1. Interval extubation and removal of nasogastric tube. 2. Slight interval increase in atelectasis of the right lung. POS: OFF
--- NOTE | 2017-12-16 13:43 | PRG ---
DATE OF SERVICE: 12/16/2017 SERVICE: Pulmonary Medicine. INTERVAL HISTORY: The patient is doing really well from respiratory standpoint. He denies current f ever, chills, nausea, vomiting or chest discomfort. He is very happy with way things are going. He has been walking twice every day. There has been no interval change to his condition. PHYSICAL EXAMINATION: VITAL SIGNS: Afebrile, pulse 111, blood pressure 130/78, respirations 16, saturation 97% on room air . GENERAL: Patient is awake, alert, in no apparent distress. LUNGS: Decent air entry. There are no rhonchi present. No wheezing or prolonged expiratory phase. No crackles. HEART: Normal rate, regular. ABDOMEN: Soft, nontender, nondistended. Bowel sounds are positive. MUSCULOSKELETAL: No cyanosis or clubbing. There is no pitting in the bilateral lower extremities. NEUROLOGIC: Grossly nonfocal. LABORATORY DATA: WBC 14.5 and downtrending, hemoglobin 9.2, platelets 432,000. PH 7.34, pCO2 of 34, pO2 of 79. Sodium 133 and improving. Basic metabolic profile is otherwise unremarkable. IMAGING: Chest x-ray demonstrates interval extubation. Removal of the NG tube. Interval increase i n atelectasis of the right lung. There is two thoracostomy drains on the left side which remain in g ood position. Left-sided subclavian central venous catheter is in good position. Staple line is angelica ntified. ASSESSMENT: 1. Acute hypoxic respiratory failure, resolved. 2. Septic shock, resolved. 3. Empyema on the left secondary to methicillin- sensitive Staphylococcus aureus following trauma 1 month ago. 4. Thoracotomy with decortication, postoperative day #5. 5. Type 2 diabetes mellitus. DISCUSSION AND PLAN: The patient is doing absolutely fantastic from a respiratory standpoint. He cannon s a persistent air leak. The chest tubes are going to remain in place until the air leak stops. I w ill give the patient a lab holiday and imaging holiday through the weekend.
--- NOTE | 2017-12-16 14:01 | PDOC.PN ---
- Subjective Encounter Start Date: 12/16/17 Encounter Start Time: 14:00 Subjective: f/u for empyema of L chest with MSSA on Augmentin and Keflex. Some CP -: with movement and coughing. Ambulated in halls today. Appetite ok. -: No fever or chills. - Objective MAR Reviewed: Yes Vital Signs & Weight: Vital Signs (12 hours) Temp Pulse Resp BP BP Pulse Ox 12/16/17 11:45 98.2 F 111 H 16 130/78 97 12/16/17 09:34 121 H 20 97 12/16/17 08:32 98.6 F 110 H 24 H 95 12/16/17 08:29 110 H 155/94 H 12/16/17 07:50 98.6 F 110 H 24 H 155/94 H 95 12/16/17 05:00 98.7 F 112 H 19 161/89 H 95 Weight Weight 149 lb 14.629 oz Most Recent Monitor Data Heart Rate from ECG 109 NIBP 146/89 NIBP BP-Mean 103 Respiration from ECG 21 SpO2 100 I&O: 12/15/17 12/16/17 12/17/17 06:59 06:59 06:59 Intake Total 1420 1770 Output Total 3295 2710 Balance -1875 -940 Result Diagrams: 12/16/17 05:55 12/16/17 05:55 Additional Labs: Microbiology 12/11/17 12:40 Pleural - Left Bacterial Culture - Final 12/11/17 12:40 Pleural - Left Anaerobic Culture - Final Staphylococcus aureus 12/11/17 07:40 Venous blood - Left Arm Blood Culture - Final NO GROWTH IN 5 DAYS 12/11/17 07:28 Venous blood - Right Arm Blood Culture - Final NO GROWTH IN 5 DAYS 12/11/17 05:30 Nasal swab Influenza Types A,B Direct EIA - Final Laboratory Tests 12/12/17 12/13/17 12/14/17 04:20 04:50 04:24 WBC 17.3 H 18.3 H Hgb 10.0 L 9.9 L Plt Count 498 H 502 H Sodium 129 L 12/14/17 04:24 WBC 17.3 H Hgb 10.0 L Plt Count 526 H Sodium Radiology Reviewed by me: Yes (PCXR - L CT in place, R-sided atelectasis) Phys Exam - Physical Examination Constitutional: NAD HEENT: PERRLA, oral pharynx no lesions Neck: no JVD, supple coarse sounds in L lung base L CT in place, L subclavian CVC in place Tachycardic Gastrointestinal: soft, non-tender, no distention, positive bowel sounds Musculoskeletal: no edema, pulses present Neurological: normal sensation, moves all 4 limbs Psychiatric: A&O x 3 Skin: normal turgor, cap refill <2 seconds Dx/Plan (1) Empyema lung Code(s): J86.9 - PYOTHORAX WITHOUT FISTULA Status: Acute Comment: s/p decortication & thoracotomy 12/11/17.Chest Tube in place with air leak, continue CT drainage and monitor for resolution, continue Augmentin and Keflex (2) Acute blood loss as cause of postoperative anemia Code(s): D62 - ACUTE POSTHEMORRHAGIC ANEMIA Status: Acute Comment: Stable H/ H post 2 unit PRBC on 12/11/17, H/H stable (3) Hyponatremia Code(s): E87.1 - HYPO-OSMOLALITY AND HYPONATREMIA Status: Acute Comment: Stable.trang CHASPORSHA d/t Empyema. Improving (4) DM2 (diabetes mellitus, type 2) Status: Chronic Qualifiers: Diabetes mellitus complication status: with hyperglycemia Comment: Pt denies history of same (5) HTN (hypertension) Code(s): I10 - ESSENTIAL (PRIMARY) HYPERTENSION Status: Chronic Comment: Lisinopril on hold as BP was low (6) Septic shock Code(s): A41.9 - SEPSIS, UNSPECIFIED ORGANISM; R65.21 - SEVERE SEPSIS WITH SEPTIC SHOCK Status: Resolved - Plan continue antibiotics, PT/OT, social contact worker, respiratory therapy, incentive spirometry, out of bed/ambulate, DVT proph w/SCDs Stable overall -: Continue CT and monitor drainage, current air leak noted -: Continue Augmentin and Keflex -: Add Duonebs q4h prn -: PCXR in 48h * .
[2017-12-17] MEDS: HYDROcodone/Acetaminophen 5/325 mg Tablet PO PRN ×4 (03:38→20:58)
[2017-12-17] MEDS: Cephalexin 250 MG CAP PO SCH ×4 (05:36→23:42)
[2017-12-17] MEDS: Polyethylene Glycol 3350 17 GM Packet PO SCH (08:06)
[2017-12-17] MEDS: Amoxicillin/Potassium Clav 875 MG TAB PO SCH ×2 (08:06→20:55)
[2017-12-17] MEDS: Lisinopril 5 MG TAB PO SCH (08:07)
--- NOTE | 2017-12-17 13:29 | PDOC.PN ---
- Subjective Encounter Start Date: 12/17/17 Encounter Start Time: 12:00 Subjective: breathing better -: says he is amb in hallway and in the room - Objective MAR Reviewed: Yes Vital Signs & Weight: Vital Signs (12 hours) Temp Pulse Resp BP BP Pulse Ox 12/17/17 11:15 98.0 F 110 H 16 144/90 H 96 12/17/17 08:07 111 H 172/84 H 12/17/17 08:03 98.2 F 111 H 16 98 12/17/17 07:05 98.2 F 110 H 16 172/84 H 98 12/17/17 04:56 98.5 F 112 H 19 167/93 H 95 Weight Weight 149 lb 14.629 oz Most Recent Monitor Data Heart Rate from ECG 109 NIBP 146/89 NIBP BP-Mean 103 Respiration from ECG 21 SpO2 100 I&O: 12/16/17 12/17/17 12/18/17 06:59 06:59 06:59 Intake Total 1770 1200 Output Total 2710 3240 Balance -940 -2040 Result Diagrams: 12/16/17 05:55 12/16/17 05:55 Additional Labs: Accuchecks 12/17/17 12/17/17 12/16/17 10:51 05:37 21:24 POC Glucose 86 104 104 Phys Exam - Physical Examination HEENT: PERRLA, moist MMs Neck: no JVD, supple Respiratory: no wheezing, no rales left chest tube++ Cardiovascular: RRR, no significant murmur Gastrointestinal: soft, non-tender, positive bowel sounds Musculoskeletal: no edema, pulses present Neurological: non-focal, moves all 4 limbs Psychiatric: A&O x 3 Dx/Plan (1) Empyema lung Code(s): J86.9 - PYOTHORAX WITHOUT FISTULA Status: Acute Comment: s/p decortication & thoracotomy 12/11/17.Chest Tube in place with air leak, continue CT drainage and monitor for resolution, continue Augmentin and Keflex (2) Acute blood loss as cause of postoperative anemia Code(s): D62 - ACUTE POSTHEMORRHAGIC ANEMIA Status: Acute Comment: Stable H/ H post 2 unit PRBC on 12/11/17, H/H stable (3) DM2 (diabetes mellitus, type 2) Status: Chronic Qualifiers: Diabetes mellitus complication status: with hyperglycemia Diabetes mellitus terminal manager insulin use: without alf use Qualified Code(s): E11.65 - Type 2 diabetes mellitus with hyperglycemia Comment: Pt denies history of same (4) HTN (hypertension) Code(s): I10 - ESSENTIAL (PRIMARY) HYPERTENSION Status: Chronic Qualifiers: Hypertension type: essential hypertension Qualified Code(s): I10 - Essential (primary) hypertension Comment: Lisinopril on hold as BP was low - Plan is on augmentin, keflex -: nebs, narco prn -: hemostable -: to amb as tolerated -: is recovering well * . Review of Systems - Medications/Allergies Allergies/Adverse Reactions: Allergies Allergy/AdvReac Type Severity Reaction Status Date / Time No Known Drug Allergies Allergy Verified 10/31/17 06:20 Medications: Current Medications Acetaminophen (Tylenol) 650 mg PO Q4H PRN PRN Reason: Headache/Fever or Pain Hydrocodone Bitart/Acetaminophen ([place] 5/325) 1 tab PO Q4H PRN PRN Reason: Moderate Pain (4-6) Last Admin: 12/17/17 08:07 Dose: 1 tab Al Hydroxide/Mg Hydroxide (Maalox) 30 ml PO Q6H PRN PRN Reason: Heartburn or Indigestion Albuterol/Ipratropium (Duoneb) 3 ml NEB Q4H PRN PRN Reason: SOB Last Admin: 12/16/17 19:55 Dose: 3 ml Amoxicillin/Clavulanate Potassium (Augmentin) 875 mg PO Q12HR [facility] Last Admin: 12/17/17 08:06 Dose: 875 mg Bisacodyl (Dulcolax) 10 mg PO DAILYPRN PRN PRN Reason: Constipation Last Admin: 12/15/17 08:31 Dose: 10 mg Calcium Carbonate (Tums) 1,000 mg PO Q4H PRN PRN Reason: Heartburn or Indigestion Cephalexin (Keflex) 500 mg PO Q6HR [facility] Last Admin: 12/17/17 12:46 Dose: 500 mg Dextrose/Water (Dextrose 50%) 25 gm SLOW IVP PRN PRN PRN Reason: Hypoglycemia Glucagon (Glucagon) 1 mg IM PRN PRN PRN Reason: Hypoglycemia Guaifenesin (Robitussin Sf) 200 mg PO Q4H PRN PRN Reason: Cough Hydralazine HCl (Apresoline) 10 mg SLOW IVP Q4H PRN PRN Reason: Systolic BP > 180 Dextrose/Water (D5w) 1,000 mls @ 0 mls/hr IV .Q0M PRN; As Directed PRN Reason: Hypoglycemia Insulin Human Lispro (Humalog) 0 units SC .MODERATE SLIDING SC PRN PRN Reason: Moderate Correctional Scale Insulin Human Lispro (Humalog) 0 units SC .BEDTIME SLIDING SC PRN PRN Reason: Bedtime Correctional Scale Lisinopril (Zestril) 5 mg PO DAILY [facility] Last Admin: 12/17/17 08:07 Dose: 5 mg Loratadine (Claritin) 10 mg PO DAILYPRN PRN PRN Reason: Sinus Symptoms Metoprolol Succinate (Toprol Xl) 12.5 mg PO DAILY [facility] Ccu Electrolyte (Replacement Protocol) 0 each FS PRN PRN PRN Reason: FOR ELECTROLYTE REPLACEMENT Ondansetron HCl (Zofran) 4 mg IVP Q6H PRN PRN Reason: Nausea/Vomiting Polyethylene Glycol (Miralax) 17 gm PO DAILY [facility] Last Admin: 12/17/17 08:06 Dose: 17 gm Senna (Senokot) 2 tab PO HSPRN PRN PRN Reason: Constipation Last Admin: 12/16/17 18:01 Dose: 2 tab
--- NOTE | 2017-12-17 13:46 | PRG ---
DATE OF SERVICE: 12/17/2017 SUBJECTIVE: Mr. Jasmine is status post decortication. He is doing well. No pain or shortness of helena ath. OBECTIVE: VITAL SIGNS: Sats are 96% on room air, blood pressure 140/90, temperature 98, respirations 18. CHEST: Decreased breath sounds without any wheezing. CARDIAC: Normal S1 and S2. No gallops. ABDOMEN: Soft. No masses. IMPRESSION: Decortication, left empyema. PLAN: Continue antibiotics, neb treatments, and supportive care. We will follow.
[2017-12-18] MEDS: Cephalexin 250 MG CAP PO SCH ×4 (05:33→22:35)
[2017-12-18] MEDS: HYDROcodone/Acetaminophen 5/325 mg Tablet PO PRN ×2 (05:33→22:34)
[2017-12-18] MEDS: Amoxicillin/Potassium Clav 875 MG TAB PO SCH ×2 (08:50→20:25)
[2017-12-18] MEDS: Lisinopril 5 MG TAB PO SCH (08:50)
[2017-12-18] MEDS: Polyethylene Glycol 3350 17 GM Packet PO SCH (08:51)
--- NOTE | 2017-12-18 11:32 | PDOC.PN ---
- Subjective Encounter Start Date: 12/18/17 Encounter Start Time: 07:00 Subjective: breathing better -: no complaints - Objective MAR Reviewed: Yes Vital Signs & Weight: Vital Signs (12 hours) Temp Pulse Resp BP BP Pulse Ox 12/18/17 08:50 109 H 159/98 H 12/18/17 07:50 97.7 F 108 H 16 99 12/18/17 07:25 97.9 F 109 H 18 158/93 H 98 12/18/17 04:00 98.1 F 106 H 16 144/94 H 96 12/18/17 00:00 98.3 F 104 H 16 148/88 H 96 Weight Weight 149 lb 14.629 oz Most Recent Monitor Data Heart Rate from ECG 109 NIBP 146/89 NIBP BP-Mean 103 Respiration from ECG 21 SpO2 100 I&O: 12/17/17 12/18/17 12/19/17 06:59 06:59 06:59 Intake Total 1200 Output Total 3240 1830 Balance -2039 Result Diagrams: 12/16/17 05:55 12/16/17 05:55 Additional Labs: Accuchecks 12/18/17 12/18/17 12/17/17 11:12 05:36 20:34 POC Glucose 105 77 88 12/17/17 15:48 POC Glucose 93 Phys Exam - Physical Examination HEENT: PERRLA, moist MMs Neck: no JVD, supple Respiratory: no wheezing, no rales chest tube left x2 Cardiovascular: RRR, no significant murmur Gastrointestinal: soft, non-tender, positive bowel sounds Musculoskeletal: no edema, pulses present Neurological: non-focal, moves all 4 limbs Psychiatric: A&O x 3 Dx/Plan (1) Empyema lung Code(s): J86.9 - PYOTHORAX WITHOUT FISTULA Status: Acute Comment: s/p decortication & thoracotomy 12/11/17. Augmentin and Keflex (2) Acute blood loss as cause of postoperative anemia Code(s): D62 - ACUTE POSTHEMORRHAGIC ANEMIA Status: Acute Comment: Stable H/ H post 2 unit PRBC on 12/11/17, H/H stable (3) DM2 (diabetes mellitus, type 2) Status: Chronic Qualifiers: Diabetes mellitus complication status: with hyperglycemia Diabetes mellitus truck terminal manager insulin use: without fpc use Qualified Code(s): E11.65 - Type 2 diabetes mellitus with hyperglycemia Comment: Pt denies history of same (4) HTN (hypertension) Code(s): I10 - ESSENTIAL (PRIMARY) HYPERTENSION Status: Chronic Qualifiers: Hypertension type: essential hypertension Qualified Code(s): I10 - Essential (primary) hypertension - Plan on augmentin and keflex, nebs -: lisinopril and toprol xl -: norco prn -: to amb as tolerated -: chest tube per CTS advice * . Review of Systems - Medications/Allergies Allergies/Adverse Reactions: Allergies Allergy/AdvReac Type Severity Reaction Status Date / Time No Known Drug Allergies Allergy Verified 10/31/17 06:20 Medications: Current Medications Acetaminophen (Tylenol) 650 mg PO Q4H PRN PRN Reason: Headache/Fever or Pain Hydrocodone Bitart/Acetaminophen ([place] 5/325) 1 tab PO Q4H PRN PRN Reason: Moderate Pain (4-6) Last Admin: 12/18/17 05:33 Dose: 1 tab Al Hydroxide/Mg Hydroxide (Maalox) 30 ml PO Q6H PRN PRN Reason: Heartburn or Indigestion Albuterol/Ipratropium (Duoneb) 3 ml NEB Q4H PRN PRN Reason: SOB Last Admin: 12/16/17 19:55 Dose: 3 ml Amoxicillin/Clavulanate Potassium (Augmentin) 875 mg PO Q12HR [facility] Last Admin: 12/18/17 08:50 Dose: 875 mg Bisacodyl (Dulcolax) 10 mg PO DAILYPRN PRN PRN Reason: Constipation Last Admin: 12/15/17 08:31 Dose: 10 mg Calcium Carbonate (Tums) 1,000 mg PO Q4H PRN PRN Reason: Heartburn or Indigestion Cephalexin (Keflex) 500 mg PO Q6HR [facility] Last Admin: 12/18/17 05:33 Dose: 500 mg Guaifenesin (Robitussin Sf) 200 mg PO Q4H PRN PRN Reason: Cough Hydralazine HCl (Apresoline) 10 mg SLOW IVP Q4H PRN PRN Reason: Systolic BP > 180 Lisinopril (Zestril) 5 mg PO DAILY [facility] Last Admin: 12/18/17 08:50 Dose: 5 mg Loratadine (Claritin) 10 mg PO DAILYPRN PRN PRN Reason: Sinus Symptoms Metoprolol Succinate (Toprol Xl) 12.5 mg PO DAILY [facility] Last Admin: 12/18/17 08:51 Dose: 12.5 mg Ccu Electrolyte (Replacement Protocol) 0 each FS PRN PRN PRN Reason: FOR ELECTROLYTE REPLACEMENT Ondansetron HCl (Zofran) 4 mg IVP Q6H PRN PRN Reason: Nausea/Vomiting Polyethylene Glycol (Miralax) 17 gm PO DAILY [facility] Last Admin: 12/18/17 08:51 Dose: Not Given Senna (Senokot) 2 tab PO HSPRN PRN PRN Reason: Constipation Last Admin: 12/16/17 18:01 Dose: 2 tab
--- NOTE | 2017-12-18 14:35 | PRG ---
DATE OF SERVICE: 12/18/2017 SUBJECTIVE: Vinicio Jasmine is here for hemoptysis, but denies any pain. OBJECTIVE: VITAL SIGNS: Sats are 90% on room air, blood pressure 159/98, temperature 97. CHEST: Extensive rhonchi in left lung. CARDIAC: Normal S1, S2, no gallops. ABDOMEN: Soft, no masses. IMPRESSION: Left-sided empyema, decortication, chest tube in place. PLAN: Antibiotics per Infectious Disease. Home when CT is remote.
[2017-12-18] MEDS ORDERED: FLU VACC QS2017-18 36 mo. & older 0.5 ML SYRINGE IM ONE (16:00)
[2017-12-18] MEDS ORDERED: Prevnar 13-Val Conj/PF 0.5 ML SYRINGE IM ONE (16:00)
[2017-12-19] MEDS: Cephalexin 250 MG CAP PO SCH ×4 (05:39→23:46)
[2017-12-19] MEDS: HYDROcodone/Acetaminophen 5/325 mg Tablet PO PRN ×3 (05:39→17:38)
--- NOTE | 2017-12-19 07:36 | PRG ---
DATE OF SERVICE: 12/13/2017 HISTORY: Mr. Jasmine is feeling better, eating well, mild pain at the chest tube site and decorticati on site. No abdominal pain. PHYSICAL EXAMINATION: VITAL SIGNS: The patient has been afebrile. Blood pressure 120/70, pulse 116, O2 sat 98%. GENERAL: Awake, alert, oriented. LUNGS: Diminished breath sounds in the left side as expected. CARDIOVASCULAR: S1, S2, regular rate. ABDOMEN: Soft and not distended. EXTREMITIES: Moves extremities equally. LABORATORY DATA: White cell count 18,000, hemoglobin 9.9, platelets 502, creatinine 0.89. Microbiol ogy; Staphylococcus aureus which is a methicillin-sensitive strain. ASSESSMENT AND DISCUSSION: Homelessness history, traumatic injury to chest with chest tube and now postop infection which required decortication secondary to methicillin-susceptible Staphylococcus aur eus. The patient has been transitioned to oral antimicrobials. Will consider switching him to Kefle x. He may have recrudescence of inflammatory process in view of the issues of penetration. We will follow him closely. If there is recrudescence of inflammatory process then switch back to IVs, prob ably IV Rocephin. Otherwise, continue oral, I would prefer except for cephalexin which has better ac tivity against Staphylococcus aureus than Augmentin.
[2017-12-19] MEDS: Polyethylene Glycol 3350 17 GM Packet PO SCH (08:22)
[2017-12-19] MEDS: Amoxicillin/Potassium Clav 875 MG TAB PO SCH (08:22)
[2017-12-19] MEDS: Lisinopril 5 MG TAB PO SCH (08:22)
--- NOTE | 2017-12-19 12:59 | PRG ---
DATE OF SERVICE: 12/19/2017 SERVICE: Pulmonary Medicine INTERVAL HISTORY: The patient is doing fantastic from a respiratory standpoint. He is breathing com fortably. No chest discomfort. He has been up walking around. His leak has improved, although it i s still present. PHYSICAL EXAMINATION: VITAL SIGNS: Afebrile, pulse 103, blood pressure 160/92, respirations 18, saturation 98% on room air . GENERAL: Patient is awake, alert, in no apparent distress. LUNGS: Decreased air entry. There is no prolonged expiratory phase, wheezing, rhonchi or crackles. HEART: Normal rate, regular. ABDOMEN: Soft, nontender, nondistended. Bowel sounds are positive. MUSCULOSKELETAL: No cyanosis or clubbing. There is no pitting in the bilateral lower extremities. NEUROLOGIC: Grossly nonfocal. ASSESSMENT: 1. Acute hypoxic respiratory failure, resolved. 2. Septic shock, resolved. 3. Empyema on the left secondary to methicillin-susceptible Staphylococcus aureus, following trauma 1 month ago. 4. Thoracotomy with decortication, postoperative day #8. 5. Type 2 diabetes mellitus. DISCUSSION AND PLAN: We are still waiting for the leak to stop. Once it does, the chest tube can be removed and the patient can be discharged home. He will need repeat imaging in the outpatient sydnie up in 4-6 weeks after protracted course of antibiotic. I will repeat some laboratories tomorrow to m lenora sure if the inflammatory profile is still resolving.
--- NOTE | 2017-12-19 13:17 | PDOC.PN ---
- Subjective Encounter Start Date: 12/19/17 Encounter Start Time: 10:50 Subjective: no sob, feels better - Objective MAR Reviewed: Yes Vital Signs & Weight: Vital Signs (12 hours) Temp Pulse Resp BP BP Pulse Ox 12/19/17 12:28 98.2 F 103 H 18 160/92 H 98 12/19/17 09:14 98.2 F 96 14 98 12/19/17 08:22 96 158/98 H 12/19/17 07:57 98.2 F 96 14 158/98 H 98 12/19/17 04:09 98.3 F 96 18 159/91 H 98 Weight Weight 149 lb 14.629 oz Most Recent Monitor Data Heart Rate from ECG 109 NIBP 146/89 NIBP BP-Mean 103 Respiration from ECG 21 SpO2 100 I&O: 12/18/17 12/19/17 12/20/17 06:59 06:59 06:59 Intake Total 1980 Output Total 1830 2200 Balance -1830 -220 Result Diagrams: 12/16/17 05:55 12/16/17 05:55 Additional Labs: Accuchecks 12/19/17 12/19/17 12/18/17 10:40 06:05 20:55 POC Glucose 88 74 115 H 12/18/17 16:24 POC Glucose 89 Phys Exam - Physical Examination HEENT: PERRLA, moist MMs Neck: no JVD, supple Respiratory: no wheezing, no rales chest tube in place on left side Cardiovascular: RRR, no significant murmur Gastrointestinal: soft, non-tender, positive bowel sounds Musculoskeletal: no edema, pulses present Neurological: non-focal, moves all 4 limbs Psychiatric: A&O x 3 Dx/Plan (1) Empyema lung Code(s): J86.9 - PYOTHORAX WITHOUT FISTULA Status: Acute Comment: s/p decortication & thoracotomy 12/11/17. Augmentin and Keflex (2) Acute blood loss as cause of postoperative anemia Code(s): D62 - ACUTE POSTHEMORRHAGIC ANEMIA Status: Acute Comment: Stable H/ H post 2 unit PRBC on 12/11/17, H/H stable (3) DM2 (diabetes mellitus, type 2) Status: Chronic Qualifiers: Diabetes mellitus complication status: with hyperglycemia Diabetes mellitus retirement insulin use: without tray drier operator use Qualified Code(s): E11.65 - Type 2 diabetes mellitus with hyperglycemia Comment: Pt denies history of same (4) HTN (hypertension) Code(s): I10 - ESSENTIAL (PRIMARY) HYPERTENSION Status: Chronic Qualifiers: Hypertension type: essential hypertension Qualified Code(s): I10 - Essential (primary) hypertension - Plan is on aug and keflex -: nebs -: chest tube per CTS -: to amb as tolerated -: toprol and lisinopril * . Review of Systems - Medications/Allergies Allergies/Adverse Reactions: Allergies Allergy/AdvReac Type Severity Reaction Status Date / Time No Known Drug Allergies Allergy Verified 10/31/17 06:20 Medications: Current Medications Acetaminophen (Tylenol) 650 mg PO Q4H PRN PRN Reason: Headache/Fever or Pain Hydrocodone Bitart/Acetaminophen ([place] 5/325) 1 tab PO Q4H PRN PRN Reason: Moderate Pain (4-6) Last Admin: 12/19/17 11:32 Dose: 1 tab Al Hydroxide/Mg Hydroxide (Maalox) 30 ml PO Q6H PRN PRN Reason: Heartburn or Indigestion Albuterol/Ipratropium (Duoneb) 3 ml NEB Q4H PRN PRN Reason: SOB Last Admin: 12/16/17 19:55 Dose: 3 ml Bisacodyl (Dulcolax) 10 mg PO DAILYPRN PRN PRN Reason: Constipation Last Admin: 12/15/17 08:31 Dose: 10 mg Calcium Carbonate (Tums) 1,000 mg PO Q4H PRN PRN Reason: Heartburn or Indigestion Cephalexin (Keflex) 500 mg PO Q6HR [facility] Last Admin: 12/19/17 11:31 Dose: 500 mg Guaifenesin (Robitussin Sf) 200 mg PO Q4H PRN PRN Reason: Cough Hydralazine HCl (Apresoline) 10 mg SLOW IVP Q4H PRN PRN Reason: Systolic BP > 180 Lisinopril (Zestril) 5 mg PO DAILY [facility] Last Admin: 12/19/17 08:22 Dose: 5 mg Loratadine (Claritin) 10 mg PO DAILYPRN PRN PRN Reason: Sinus Symptoms Metoprolol Succinate (Toprol Xl) 12.5 mg PO DAILY [facility] Last Admin: 12/19/17 08:22 Dose: 12.5 mg Ccu Electrolyte (Replacement Protocol) 0 each FS PRN PRN PRN Reason: FOR ELECTROLYTE REPLACEMENT Ondansetron HCl (Zofran) 4 mg IVP Q6H PRN PRN Reason: Nausea/Vomiting Polyethylene Glycol (Miralax) 17 gm PO DAILY [facility] Last Admin: 12/19/17 08:22 Dose: Not Given Senna (Senokot) 2 tab PO HSPRN PRN PRN Reason: Constipation Last Admin: 12/16/17 18:01 Dose: 2 tab
[2017-12-20] MEDS: HYDROcodone/Acetaminophen 5/325 mg Tablet PO PRN ×4 (04:01→20:50)
[2017-12-20 05:01] LABS: #Eosinphils 0.2 thou/uL (0.0-0.7); #Lymphocytes 2.6 thou/uL (1.20-3.40); #Monocytes 0.6 thou/uL (0.11-0.59); #Neutrophils 6.3 thou/uL (1.40-6.50); %Basophils 0.1 % (0.0-1.0); %Eosinophils 2.4 % (0.0-10.0); %Lymphocytes 26.7 % (21.0-51.0); %Monocytes 6.1 % (0.0-10.0); %Neutrophils 64.6 % (42.0-75.0); Mean Corpuscular HGB CONC 31.1 g/dL (32.0-36.0); Mean Corpuscular Hemoglobin 27.1 pg (27.0-31.0); Mean Corpuscular Volume 87.3 fl (80.0-94.0); Mean Platelet Volume 6.4 fL (7.4-10.4); Platelet Count 459 thou/uL (130-400); RBC Distribution Width 17.4 % (11.5-14.5); Red Blood Cell (RBC) Count 3.32 mill/uL (4.70-6.10); White Blood Cell (WBC) Count 9.7 thou/uL (4.8-10.8)
[2017-12-20] MEDS: Cephalexin 250 MG CAP PO SCH ×4 (05:24→23:42)
[2017-12-20 05:27] LABS: Anion Gap 9 mmol/L (10-20); BUN (Urea Nitrogen) 7 mg/dL (8.4-25.7); Calc. Creatinine Clearance 98 mL/min (70-130); Calcium 8.4 mg/dL (7.8-10.44); Carbon Dioxide 28 mmol/L (22-29); Chloride 101 mmol/L (98-107); Estimated GFR-MDRD Greater than 90; Glucose 84 mg/dL (70-105); Potassium 4.1 mmol/L (3.5-5.1); Sodium 134 mmol/L (136-145)
[2017-12-20] MEDS: Lisinopril 5 MG TAB PO SCH (09:05)
[2017-12-20] MEDS: Polyethylene Glycol 3350 17 GM Packet PO SCH (09:05)
--- NOTE | 2017-12-20 11:31 | PDOC.PN ---
- Subjective Encounter Start Date: 12/20/17 Encounter Start Time: 08:00 Subjective: breathing better, no sob - Objective MAR Reviewed: Yes Vital Signs & Weight: Vital Signs (12 hours) Temp Pulse Resp BP Pulse Ox 12/20/17 09:05 104 H 12/20/17 08:25 97.6 F 104 H 18 97 12/20/17 08:10 97.6 F 107 H 18 156/100 H 97 12/20/17 04:00 98.3 F 101 H 19 158/104 H 97 12/20/17 00:00 98.4 F 103 H 16 163/100 H 98 Weight Weight 149 lb 14.629 oz Most Recent Monitor Data Heart Rate from ECG 109 NIBP 146/89 NIBP BP-Mean 103 Respiration from ECG 21 SpO2 100 I&O: 12/19/17 12/20/17 12/21/17 06:59 06:59 06:59 Intake Total 1980 420 Output Total 2200 9310 1528 Balance -220 -1135 -1080 Result Diagrams: 12/20/17 04:45 12/20/17 04:45 Additional Labs: Accuchecks 12/20/17 12/19/17 12/19/17 05:57 20:12 15:48 POC Glucose 100 102 116 H Phys Exam - Physical Examination HEENT: PERRLA, moist MMs Neck: no JVD, supple Respiratory: no wheezing, no rales chest tube x2 in place Cardiovascular: RRR, no significant murmur Gastrointestinal: soft, non-tender, positive bowel sounds Musculoskeletal: no edema, pulses present Neurological: non-focal, moves all 4 limbs Psychiatric: A&O x 3 Dx/Plan (1) Empyema lung Code(s): J86.9 - PYOTHORAX WITHOUT FISTULA Status: Acute Comment: s/p decortication & thoracotomy 12/11/17. Augmentin and Keflex (2) Acute blood loss as cause of postoperative anemia Code(s): D62 - ACUTE POSTHEMORRHAGIC ANEMIA Status: Acute Comment: Stable H/ H post 2 unit PRBC on 12/11/17, H/H stable (3) DM2 (diabetes mellitus, type 2) Status: Chronic Qualifiers: Diabetes mellitus complication status: with hyperglycemia Diabetes mellitus petroleum terminal plant operator insulin use: without petroleum terminal plant operator use Qualified Code(s): E11.65 - Type 2 diabetes mellitus with hyperglycemia Comment: Pt denies history of same (4) HTN (hypertension) Code(s): I10 - ESSENTIAL (PRIMARY) HYPERTENSION Status: Chronic Qualifiers: Hypertension type: essential hypertension Qualified Code(s): I10 - Essential (primary) hypertension - Plan on keflex, nebs, i.spirometry -: still has air leak from chest tube -: imaging per pulm/cts advice -: continue toprol and lisinopril -: to amb as tolerated * . Review of Systems - Medications/Allergies Allergies/Adverse Reactions: Allergies Allergy/AdvReac Type Severity Reaction Status Date / Time No Known Drug Allergies Allergy Verified 10/31/17 06:20 Medications: Current Medications Acetaminophen (Tylenol) 650 mg PO Q4H PRN PRN Reason: Headache/Fever or Pain Hydrocodone Bitart/Acetaminophen ([place] 5/325) 1 tab PO Q4H PRN PRN Reason: Moderate Pain (4-6) Last Admin: 12/20/17 09:16 Dose: 1 tab Al Hydroxide/Mg Hydroxide (Maalox) 30 ml PO Q6H PRN PRN Reason: Heartburn or Indigestion Albuterol/Ipratropium (Duoneb) 3 ml NEB Q4H PRN PRN Reason: SOB Last Admin: 12/16/17 19:55 Dose: 3 ml Bisacodyl (Dulcolax) 10 mg PO DAILYPRN PRN PRN Reason: Constipation Last Admin: 12/15/17 08:31 Dose: 10 mg Calcium Carbonate (Tums) 1,000 mg PO Q4H PRN PRN Reason: Heartburn or Indigestion Cephalexin (Keflex) 500 mg PO Q6HR [facility] Last Admin: 12/20/17 05:24 Dose: 500 mg Guaifenesin (Robitussin Sf) 200 mg PO Q4H PRN PRN Reason: Cough Hydralazine HCl (Apresoline) 10 mg SLOW IVP Q4H PRN PRN Reason: Systolic BP > 180 Lisinopril (Zestril) 5 mg PO DAILY [facility] Last Admin: 12/20/17 09:05 Dose: 5 mg Loratadine (Claritin) 10 mg PO DAILYPRN PRN PRN Reason: Sinus Symptoms Metoprolol Succinate (Toprol Xl) 12.5 mg PO DAILY [facility] Last Admin: 12/20/17 09:04 Dose: 12.5 mg Ccu Electrolyte (Replacement Protocol) 0 each FS PRN PRN PRN Reason: FOR ELECTROLYTE REPLACEMENT Ondansetron HCl (Zofran) 4 mg IVP Q6H PRN PRN Reason: Nausea/Vomiting Polyethylene Glycol (Miralax) 17 gm PO DAILY [facility] Last Admin: 12/20/17 09:05 Dose: Not Given Senna (Senokot) 2 tab PO HSPRN PRN PRN Reason: Constipation Last Admin: 12/16/17 18:01 Dose: 2 tab
--- NOTE | 2017-12-20 14:08 | PRG ---
DATE OF SERVICE: 12/20/2017 SERVICE: Pulmonary Medicine. INTERVAL HISTORY: The patient is doing great from a respiratory standpoint. He has been up walking all morning. He denies any shortness of breath or chest discomfort. His strength is improving. Oth erwise, there has been no interval change to his condition. PHYSICAL EXAMINATION: VITAL SIGNS: Afebrile, pulse 96, blood pressure 151/91, respirations 16, saturation 98% on room air. GENERAL: Patient is awake, alert, in no apparent distress. LUNGS: Decreased air entry. There is no prolonged expiratory phase or wheezing present. HEART: Normal rate, regular. ABDOMEN: Soft, nontender, nondistended. Bowel sounds are positive. MUSCULOSKELETAL: No cyanosis or clubbing. There is no pitting in the bilateral lower extremities. NEUROLOGIC: Grossly nonfocal. LABORATORY DATA: WBC 9.7, hemoglobin 9.0, platelets 459,000. Basic metabolic profile is essentially unremarkable/stable. Blood sugars range from 100-116. Left pleural fluid continues to grow MSSA. ASSESSMENT: 1. Acute hypoxic respiratory failure, resolved. 2. Septic shock, resolved. 3. Empyema on the left, secondary to methicillin-susceptible Staphylococcus aureus. 4. Thoracotomy with decortication, postoperative day #9. 5. Type 2 diabetes mellitus. PLAN: The patient's leak apparently has stopped. As such, we will put him on waterseal. I will rep eat a chest x-ray tomorrow morning. If there is no significant pneumothorax, the chest tube may be c onsidered for extraction. Pulmonary Critical Care will continue to follow while the patient remains in-house.
[2017-12-21] MEDS: HYDROcodone/Acetaminophen 5/325 mg Tablet PO PRN ×4 (01:21→22:06)
[2017-12-21] MEDS: Cephalexin 250 MG CAP PO SCH ×4 (05:52→23:36)
[2017-12-21] MEDS: Lisinopril 5 MG TAB PO SCH (08:26)
[2017-12-21] MEDS: Polyethylene Glycol 3350 17 GM Packet PO SCH (08:28)
--- NOTE | 2017-12-21 09:09 | RAD ---
CHEST 2 VIEWS: Date: 12/21/17 COMPARISON: 11/03/17, 12/16/17. HISTORY: Chest tube placement. FINDINGS: Redemonstration of two left-sided chest tubes. Redemonstration of left-sided transvenous pacemaker. P ersistent linear opacity in the right hemithorax. Stable pleural effusions left hemithorax. Stable co nfiguration of cardiac silhouette. Stable linear opacities left lung base. IMPRESSION: 1. No significant interval change. Redemonstration of two separate left-sided chest tubes. Stable op acification of the left pleural space. 2. Chronic changes of lung parenchyma. POS: [facility]
--- NOTE | 2017-12-21 10:23 | PDOC.PN ---
- Subjective Encounter Start Date: 12/21/17 Encounter Start Time: 07:45 Subjective: no sob, feels better - Objective MAR Reviewed: Yes Vital Signs & Weight: Vital Signs (12 hours) Temp Pulse Resp BP BP Pulse Ox 12/21/17 08:54 98.1 F 100 16 97 12/21/17 08:26 100 165/108 H 12/21/17 07:09 98.1 F 100 16 97 12/21/17 04:00 91 18 132/85 99 12/21/17 00:00 98.3 F 106 H 17 158/89 H 99 Weight Weight 149 lb 14.629 oz Most Recent Monitor Data Heart Rate from ECG 109 NIBP 146/89 NIBP BP-Mean 103 Respiration from ECG 21 SpO2 100 I&O: 12/20/17 12/21/17 12/22/17 06:59 06:59 06:59 Intake Total 1035 Output Total 1135 2125 Balance -1135 1090 Result Diagrams: 12/20/17 04:45 12/20/17 04:45 Additional Labs: Accuchecks 12/21/17 12/20/17 12/20/17 05:46 20:26 11:45 POC Glucose 79 106 114 H Phys Exam - Physical Examination HEENT: PERRLA, moist MMs Neck: no JVD, supple Respiratory: no wheezing, no rales dependent edema around chest tube/surgical site Cardiovascular: RRR, no significant murmur Gastrointestinal: soft, non-tender, positive bowel sounds Musculoskeletal: no edema, pulses present Neurological: non-focal, moves all 4 limbs Psychiatric: A&O x 3 Dx/Plan (1) Empyema lung Code(s): J86.9 - PYOTHORAX WITHOUT FISTULA Status: Acute Comment: s/p decortication & thoracotomy 12/11/17. Keflex (2) Acute blood loss as cause of postoperative anemia Code(s): D62 - ACUTE POSTHEMORRHAGIC ANEMIA Status: Acute Comment: Stable H/ H post 2 unit PRBC on 12/11/17, H/H stable (3) DM2 (diabetes mellitus, type 2) Status: Chronic Qualifiers: Diabetes mellitus complication status: with hyperglycemia Diabetes mellitus exterminator helper insulin use: without assisted use Qualified Code(s): E11.65 - Type 2 diabetes mellitus with hyperglycemia Comment: Pt denies history of same (4) HTN (hypertension) Code(s): I10 - ESSENTIAL (PRIMARY) HYPERTENSION Status: Chronic Qualifiers: Hypertension type: essential hypertension Qualified Code(s): I10 - Essential (primary) hypertension - Plan chest tube per pulm/cts advice -: on keflex, norco prn for pain -: adv pt to lay/turn to right lat side often to reduce dependent edema -: lisinopril and toprol for htn -: oob to chair and ambulate as tolerated * . Review of Systems - Medications/Allergies Allergies/Adverse Reactions: Allergies Allergy/AdvReac Type Severity Reaction Status Date / Time No Known Drug Allergies Allergy Verified 10/31/17 06:20 Medications: Current Medications Acetaminophen (Tylenol) 650 mg PO Q4H PRN PRN Reason: Headache/Fever or Pain Hydrocodone Bitart/Acetaminophen ([place] 5/325) 1 tab PO Q4H PRN PRN Reason: Moderate Pain (4-6) Last Admin: 12/21/17 01:21 Dose: 1 tab Al Hydroxide/Mg Hydroxide (Maalox) 30 ml PO Q6H PRN PRN Reason: Heartburn or Indigestion Albuterol/Ipratropium (Duoneb) 3 ml NEB Q4H PRN PRN Reason: SOB Last Admin: 12/16/17 19:55 Dose: 3 ml Bisacodyl (Dulcolax) 10 mg PO DAILYPRN PRN PRN Reason: Constipation Last Admin: 12/15/17 08:31 Dose: 10 mg Calcium Carbonate (Tums) 1,000 mg PO Q4H PRN PRN Reason: Heartburn or Indigestion Cephalexin (Keflex) 500 mg PO Q6HR [facility] Last Admin: 12/21/17 05:52 Dose: 500 mg Guaifenesin (Robitussin Sf) 200 mg PO Q4H PRN PRN Reason: Cough Hydralazine HCl (Apresoline) 10 mg SLOW IVP Q4H PRN PRN Reason: Systolic BP > 180 Lisinopril (Zestril) 5 mg PO DAILY [facility] Last Admin: 12/21/17 08:26 Dose: 5 mg Loratadine (Claritin) 10 mg PO DAILYPRN PRN PRN Reason: Sinus Symptoms Metoprolol Succinate (Toprol Xl) 12.5 mg PO DAILY [facility] Last Admin: 12/21/17 08:27 Dose: 12.5 mg Ccu Electrolyte (Replacement Protocol) 0 each FS PRN PRN PRN Reason: FOR ELECTROLYTE REPLACEMENT Ondansetron HCl (Zofran) 4 mg IVP Q6H PRN PRN Reason: Nausea/Vomiting Polyethylene Glycol (Miralax) 17 gm PO DAILY [facility] Last Admin: 12/21/17 08:28 Dose: Not Given Senna (Senokot) 2 tab PO HSPRN PRN PRN Reason: Constipation Last Admin: 12/16/17 18:01 Dose: 2 tab
[2017-12-21 12:19] VITALS: BMI 22.8
--- NOTE | 2017-12-21 14:39 | PRG ---
DATE OF SERVICE: 12/21/2017 SERVICE: Pulmonary Medicine. INTERVAL HISTORY: The patient is doing great from a respiratory standpoint. He is breathing comfort ably. He has been up walking in the hallways. This morning, his leak is much improved. Unfortunate ly, there is a still small leak and I think it is a little bit premature to remove the chest tubes. He denies any current chest pain, nausea, vomiting, shortness of breath or fevers. PHYSICAL EXAMINATION: VITAL SIGNS: Afebrile, pulse 106, blood pressure 171/108, respirations 16, saturation 99% on room ai r. GENERAL: Patient is awake, alert, in no apparent distress. LUNGS: Excellent air entry. No prolonged expiratory phase or wheezing. Minimal air leak is still p resent on every third to fifth breath. HEENT: Normocephalic, atraumatic. Sclerae are white, conjunctivae pink. Oral and nasal mucosa is m oist without lesions. LUNGS: Excellent air entry. No prolonged expiratory phase or wheezing. HEART: Normal rate, regular. ABDOMEN: Soft, nontender, nondistended. Bowel sounds are positive. MUSCULOSKELETAL: No cyanosis or clubbing. No pitting in the bilateral lower extremities. NEUROLOGIC: Grossly nonfocal. IMAGING: Chest x-ray demonstrates stable postop changes of the chest. Left-sided thoracostomy drain s in good position. There appears to be a little bit of a pneumothorax at the left base and possibly the right apex. There is a subclavian central venous catheter that remains in good position. ASSESSMENT: 1. Acute hypoxic respiratory failure, resolved. 2. Septic shock, resolved. 3. Empyema on the left, status post decortication, postop day #10. 4. Type 2 diabetes mellitus. PLAN: The patient will remain in the hospital until the leak stops and we can successfully remove th e chest tubes. We will continue our p.o. antibiotics for the time being. Pulmonary and Critical Car e will continue to follow while the patient remains in this location. We will continue to focus on m obility. We will continue lab holiday.
[2017-12-22] MEDS: HYDROcodone/Acetaminophen 5/325 mg Tablet PO PRN ×4 (04:20→19:40)
[2017-12-22] MEDS: Cephalexin 250 MG CAP PO SCH ×4 (05:04→23:44)
[2017-12-22] MEDS: Lisinopril 5 MG TAB PO SCH (09:21)
[2017-12-22] MEDS: Polyethylene Glycol 3350 17 GM Packet PO SCH (09:24)
--- NOTE | 2017-12-22 12:51 | PDOC.PN ---
- Subjective Encounter Start Date: 12/22/17 Encounter Start Time: 10:45 Subjective: no sob, is amb with chest tube - Objective MAR Reviewed: Yes Vital Signs & Weight: Vital Signs (12 hours) Temp Pulse Resp BP BP Pulse Ox 12/22/17 11:40 98.0 F 101 H 18 157/94 H 97 12/22/17 09:21 96 163/104 H 12/22/17 08:15 98.1 F 96 18 99 12/22/17 07:35 98.1 F 96 18 163/104 H 99 12/22/17 04:00 98.3 F 100 16 149/84 H 99 Weight Admit Weight 148 lb Weight 149 lb 14.629 oz Most Recent Monitor Data Heart Rate from ECG 109 NIBP 146/89 NIBP BP-Mean 103 Respiration from ECG 21 SpO2 100 I&O: 12/21/17 12/22/17 12/23/17 06:59 06:59 06:59 Intake Total 1035 730 Output Total 2125 2770 Balance -1090 -2040 Result Diagrams: 12/20/17 04:45 12/20/17 04:45 Additional Labs: Accuchecks 12/22/17 12/22/17 12/21/17 11:13 05:41 20:28 POC Glucose 107 95 95 12/21/17 16:17 POC Glucose 105 Phys Exam - Physical Examination HEENT: PERRLA, moist MMs Neck: no JVD, supple Respiratory: no wheezing, no rales chest tube+ Cardiovascular: RRR, no significant murmur Gastrointestinal: soft, non-tender Musculoskeletal: no edema, pulses present Neurological: non-focal, moves all 4 limbs Psychiatric: A&O x 3 Dx/Plan (1) Empyema lung Code(s): J86.9 - PYOTHORAX WITHOUT FISTULA Status: Acute Comment: s/p decortication & thoracotomy 12/11/17. Keflex (2) Acute blood loss as cause of postoperative anemia Code(s): D62 - ACUTE POSTHEMORRHAGIC ANEMIA Status: Acute Comment: Stable H/ H post 2 unit PRBC on 12/11/17, H/H stable (3) DM2 (diabetes mellitus, type 2) Status: Chronic Qualifiers: Diabetes mellitus complication status: with hyperglycemia Diabetes mellitus buttermaker insulin use: without buttermaker use Qualified Code(s): E11.65 - Type 2 diabetes mellitus with hyperglycemia Comment: Pt denies history of same (4) HTN (hypertension) Code(s): I10 - ESSENTIAL (PRIMARY) HYPERTENSION Status: Chronic Qualifiers: Hypertension type: essential hypertension Qualified Code(s): I10 - Essential (primary) hypertension - Plan hemostable -: on keflex -: chest tube per pulm/cts advice -: toprol and lisinopril -: ambulating and eating well * . Review of Systems - Medications/Allergies Allergies/Adverse Reactions: Allergies Allergy/AdvReac Type Severity Reaction Status Date / Time No Known Drug Allergies Allergy Verified 10/31/17 06:20 Medications: Current Medications Acetaminophen (Tylenol) 650 mg PO Q4H PRN PRN Reason: Headache/Fever or Pain Hydrocodone Bitart/Acetaminophen ([place] 5/325) 1 tab PO Q4H PRN PRN Reason: Moderate Pain (4-6) Last Admin: 12/22/17 10:17 Dose: 1 tab Al Hydroxide/Mg Hydroxide (Maalox) 30 ml PO Q6H PRN PRN Reason: Heartburn or Indigestion Albuterol/Ipratropium (Duoneb) 3 ml NEB Q4H PRN PRN Reason: SOB Last Admin: 12/16/17 19:55 Dose: 3 ml Bisacodyl (Dulcolax) 10 mg PO DAILYPRN PRN PRN Reason: Constipation Last Admin: 12/15/17 08:31 Dose: 10 mg Calcium Carbonate (Tums) 1,000 mg PO Q4H PRN PRN Reason: Heartburn or Indigestion Cephalexin (Keflex) 500 mg PO Q6HR [facility] Last Admin: 12/22/17 11:19 Dose: 500 mg Guaifenesin (Robitussin Sf) 200 mg PO Q4H PRN PRN Reason: Cough Hydralazine HCl (Apresoline) 10 mg SLOW IVP Q4H PRN PRN Reason: Systolic BP > 180 Lisinopril (Zestril) 5 mg PO DAILY [facility] Last Admin: 12/22/17 09:21 Dose: 5 mg Loratadine (Claritin) 10 mg PO DAILYPRN PRN PRN Reason: Sinus Symptoms Metoprolol Succinate (Toprol Xl) 12.5 mg PO DAILY [facility] Last Admin: 12/22/17 09:22 Dose: 12.5 mg Ccu Electrolyte (Replacement Protocol) 0 each FS PRN PRN PRN Reason: FOR ELECTROLYTE REPLACEMENT Ondansetron HCl (Zofran) 4 mg IVP Q6H PRN PRN Reason: Nausea/Vomiting Polyethylene Glycol (Miralax) 17 gm PO DAILY [facility] Last Admin: 12/22/17 09:24 Dose: Not Given Senna (Senokot) 2 tab PO HSPRN PRN PRN Reason: Constipation Last Admin: 12/16/17 18:01 Dose: 2 tab
[2017-12-23] MEDS: HYDROcodone/Acetaminophen 5/325 mg Tablet PO PRN ×5 (02:31→19:55)
[2017-12-23] MEDS: Cephalexin 250 MG CAP PO SCH ×3 (06:42→17:44)
[2017-12-23] MEDS: Polyethylene Glycol 3350 17 GM Packet PO SCH ×2 (09:21→09:23)
[2017-12-23] MEDS: Lisinopril 5 MG TAB PO SCH (09:21)
[2017-12-23] MEDS: Saccharomyces boulardii 250 MG CAP PO SCH (09:21)
--- NOTE | 2017-12-23 12:28 | PDOC.PN ---
- Subjective Encounter Start Date: 12/23/17 Encounter Start Time: 10:00 Subjective: no sob, is amb in hallway - Objective MAR Reviewed: Yes Vital Signs & Weight: Vital Signs (12 hours) Temp Pulse Resp BP BP Pulse Ox 12/23/17 09:21 96 169/98 H 12/23/17 08:42 98.3 F 96 18 169/98 H 98 12/23/17 04:00 98 F 100 20 160/90 H 96 Weight Admit Weight 148 lb Weight 149 lb 14.629 oz Most Recent Monitor Data Heart Rate from ECG 109 NIBP 146/89 NIBP BP-Mean 103 Respiration from ECG 21 SpO2 100 I&O: 12/22/17 12/23/17 12/24/17 06:59 06:59 06:59 Intake Total 730 900 Output Total 2770 1850 0 Balance -2039 -1849 -1249 Result Diagrams: 12/20/17 04:45 12/20/17 04:45 Additional Labs: Accuchecks 12/23/17 12/23/17 12/22/17 11:35 05:35 20:54 POC Glucose 98 91 95 12/22/17 16:31 POC Glucose 95 Phys Exam - Physical Examination HEENT: PERRLA, moist MMs Neck: no JVD, supple Respiratory: no wheezing, no rales chest tube x1 Cardiovascular: RRR, no significant murmur Gastrointestinal: soft, non-tender, positive bowel sounds Musculoskeletal: no edema, pulses present Neurological: non-focal, moves all 4 limbs Psychiatric: A&O x 3 Dx/Plan (1) Empyema lung Code(s): J86.9 - PYOTHORAX WITHOUT FISTULA Status: Acute Comment: s/p decortication & thoracotomy 12/11/17. Keflex (2) Acute blood loss as cause of postoperative anemia Code(s): D62 - ACUTE POSTHEMORRHAGIC ANEMIA Status: Acute Comment: Stable H/ H post 2 unit PRBC on 12/11/17, H/H stable (3) DM2 (diabetes mellitus, type 2) Status: Chronic Qualifiers: Diabetes mellitus complication status: with hyperglycemia Diabetes mellitus petroleum terminal plant operator insulin use: without petroleum terminal plant operator use Qualified Code(s): E11.65 - Type 2 diabetes mellitus with hyperglycemia (4) HTN (hypertension) Code(s): I10 - ESSENTIAL (PRIMARY) HYPERTENSION Status: Chronic Qualifiers: Hypertension type: essential hypertension Qualified Code(s): I10 - Essential (primary) hypertension - Plan got 1 chest tube out today -: hemostable -: on keflex, norco prn -: on lisinopril and toprol -: nebs, i.spirometry * . Review of Systems - Medications/Allergies Allergies/Adverse Reactions: Allergies Allergy/AdvReac Type Severity Reaction Status Date / Time No Known Drug Allergies Allergy Verified 10/31/17 06:20 Medications: Current Medications Acetaminophen (Tylenol) 650 mg PO Q4H PRN PRN Reason: Headache/Fever or Pain Hydrocodone Bitart/Acetaminophen ([place] 5/325) 1 tab PO Q4H PRN PRN Reason: Moderate Pain (4-6) Last Admin: 12/23/17 11:12 Dose: 1 tab Al Hydroxide/Mg Hydroxide (Maalox) 30 ml PO Q6H PRN PRN Reason: Heartburn or Indigestion Albuterol/Ipratropium (Duoneb) 3 ml NEB Q4H PRN PRN Reason: SOB Last Admin: 12/16/17 19:55 Dose: 3 ml Bisacodyl (Dulcolax) 10 mg PO DAILYPRN PRN PRN Reason: Constipation Last Admin: 12/15/17 08:31 Dose: 10 mg Calcium Carbonate (Tums) 1,000 mg PO Q4H PRN PRN Reason: Heartburn or Indigestion Cephalexin (Keflex) 500 mg PO Q6HR [facility] Last Admin: 12/23/17 11:12 Dose: 500 mg Guaifenesin (Robitussin Sf) 200 mg PO Q4H PRN PRN Reason: Cough Hydralazine HCl (Apresoline) 10 mg SLOW IVP Q4H PRN PRN Reason: Systolic BP > 180 Lisinopril (Zestril) 5 mg PO DAILY [facility] Last Admin: 12/23/17 09:21 Dose: 5 mg Loratadine (Claritin) 10 mg PO DAILYPRN PRN PRN Reason: Sinus Symptoms Metoprolol Succinate (Toprol Xl) 12.5 mg PO DAILY [facility] Last Admin: 12/23/17 09:21 Dose: 12.5 mg Ccu Electrolyte (Replacement Protocol) 0 each FS PRN PRN PRN Reason: FOR ELECTROLYTE REPLACEMENT Ondansetron HCl (Zofran) 4 mg IVP Q6H PRN PRN Reason: Nausea/Vomiting Polyethylene Glycol (Miralax) 17 gm PO DAILY [facility] Last Admin: 12/23/17 09:23 Dose: Not Given Saccharomyces Boulardii (Florastor) 250 mg PO DAILY [facility] Last Admin: 12/23/17 09:21 Dose: 250 mg Senna (Senokot) 2 tab PO HSPRN PRN PRN Reason: Constipation Last Admin: 12/16/17 18:01 Dose: 2 tab
--- NOTE | 2017-12-23 21:14 | PRG ---
DATE OF SERVICE: 12/23/2017 SERVICE: Pulmonary Medicine. INTERVAL HISTORY: The patient is doing outstanding from a respiratory standpoint. He denies any matilda st pain, nausea, vomiting, fevers or chills. He has absolutely no leak on his chest tube today. It is tideling beautifully. He has been walking with physical therapy and has no specific complaints to day. PHYSICAL EXAMINATION: VITAL SIGNS: Afebrile, pulse 104, blood pressure 159/91, respirations 16, saturation 98% on room air . GENERAL: The patient is awake and alert, in no apparent distress. LUNGS: Excellent air entry with no prolonged expiratory phase, wheezing, rhonchi or crackles. HEART: Normal rate, regular. ABDOMEN: Soft, nontender, nondistended. Bowel sounds are positive. MUSCULOSKELETAL: No cyanosis or clubbing. No pitting in the bilateral lower extremities. NEUROLOGIC: Grossly nonfocal. ASSESSMENT: 1. Acute hypoxic respiratory failure, resolved. 2. Septic shock, resolved. 3. Empyema on the left, status post decortication, postoperative day #11. 4. Type 2 diabetes mellitus. DISCUSSION AND PLAN: The leak is finally resolved. I will get a chest x-ray tomorrow morning. If h e has a good expansion of the lung, chest tube can likely be removed. If the lung stays up for any p eriod of time, he can be considered for transition home tomorrow on p.o. antibiotics. He will need t o complete an additional 4 weeks of p.o. antibiotics. He is going to follow up with me in clinic in 4 weeks with a preclinic chest x-ray to establish a new baseline for his chest.
[2017-12-24] MEDS: HYDROcodone/Acetaminophen 5/325 mg Tablet PO PRN ×6 (00:13→23:10)
[2017-12-24] MEDS: Cephalexin 250 MG CAP PO SCH ×5 (00:14→23:10)
--- NOTE | 2017-12-24 08:01 | RAD ---
CHEST 1 VIEW: HISTORY: Chest tube. Chest pain. Followup. COMPARISON: 12/21/17. FINDINGS: Cardiac silhouette is magnified by projection. Pulmonary vasculature IS WITHIN NORMAL LIMITS. The m ore superior left thoracostomy tube is unchanged in position. The more inferior/lateral tube is no l onger visible. Small left apical pneumothorax is unchanged in appearance. Atelectasis at the left l ower lobe is stable. Scarring at the right base is also unchanged. Skin lashawn overlie the left ch est wall. IMPRESSION: 1. Interval removal of the lower left thoracostomy tube. 2. Small left apical pneumothorax and other findings are otherwise stable. POS: [facility]
[2017-12-24] MEDS: Polyethylene Glycol 3350 17 GM Packet PO SCH (09:16)
[2017-12-24] MEDS: Lisinopril 5 MG TAB PO SCH (09:18)
[2017-12-24] MEDS: Saccharomyces boulardii 250 MG CAP PO SCH (09:18)
--- NOTE | 2017-12-24 11:06 | PDOC.PN ---
- Subjective Encounter Start Date: 12/24/17 Encounter Start Time: 10:50 Subjective: feels better -: is amb in hallway with chest tube - Objective MAR Reviewed: Yes Vital Signs & Weight: Vital Signs (12 hours) Temp Pulse Resp BP Pulse Ox 12/24/17 08:15 97.8 F 108 H 18 150/91 H 100 12/24/17 08:00 97.8 F 108 H 18 12/24/17 05:06 97.8 F 100 17 165/98 H 97 12/24/17 00:08 98.2 F 93 16 155/93 H 97 Weight Admit Weight 148 lb Weight 149 lb 14.629 oz Most Recent Monitor Data Heart Rate from ECG 109 NIBP 146/89 NIBP BP-Mean 103 Respiration from ECG 21 SpO2 100 I&O: 12/23/17 12/24/17 12/25/17 06:59 06:59 06:59 Intake Total 2700 Output Total 1850 2200 Balance -1850 500 Result Diagrams: 12/20/17 04:45 12/20/17 04:45 Additional Labs: Accuchecks 12/23/17 12/23/17 15:46 11:35 POC Glucose 95 98 Phys Exam - Physical Examination HEENT: PERRLA, moist MMs Neck: no JVD, supple Respiratory: no wheezing, no rales chest tube+ Cardiovascular: RRR, no significant murmur Gastrointestinal: soft, non-tender, positive bowel sounds Musculoskeletal: no edema, pulses present Neurological: non-focal, moves all 4 limbs Psychiatric: A&O x 3 Dx/Plan (1) Empyema lung Code(s): J86.9 - PYOTHORAX WITHOUT FISTULA Status: Acute Comment: s/p decortication & thoracotomy 12/11/17. Keflex (2) Acute blood loss as cause of postoperative anemia Code(s): D62 - ACUTE POSTHEMORRHAGIC ANEMIA Status: Acute Comment: Stable H/ H post 2 unit PRBC on 12/11/17, H/H stable (3) DM2 (diabetes mellitus, type 2) Status: Chronic Qualifiers: Diabetes mellitus complication status: with hyperglycemia Diabetes mellitus residential insulin use: without residential use Qualified Code(s): E11.65 - Type 2 diabetes mellitus with hyperglycemia (4) HTN (hypertension) Code(s): I10 - ESSENTIAL (PRIMARY) HYPERTENSION Status: Chronic Qualifiers: Hypertension type: essential hypertension Qualified Code(s): I10 - Essential (primary) hypertension - Plan hemostable -: on keflex, nebs -: has one chest tube left, cxr stable -: small dose of toprol and lisinopril -: norco prn pain * . Review of Systems - Medications/Allergies Allergies/Adverse Reactions: Allergies Allergy/AdvReac Type Severity Reaction Status Date / Time No Known Drug Allergies Allergy Verified 10/31/17 06:20 Medications: Current Medications Acetaminophen (Tylenol) 650 mg PO Q4H PRN PRN Reason: Headache/Fever or Pain Hydrocodone Bitart/Acetaminophen ([place] 5/325) 1 tab PO Q4H PRN PRN Reason: Moderate Pain (4-6) Last Admin: 12/24/17 09:19 Dose: 1 tab Al Hydroxide/Mg Hydroxide (Maalox) 30 ml PO Q6H PRN PRN Reason: Heartburn or Indigestion Albuterol/Ipratropium (Duoneb) 3 ml NEB Q4H PRN PRN Reason: SOB Last Admin: 12/16/17 19:55 Dose: 3 ml Bisacodyl (Dulcolax) 10 mg PO DAILYPRN PRN PRN Reason: Constipation Last Admin: 12/15/17 08:31 Dose: 10 mg Calcium Carbonate (Tums) 1,000 mg PO Q4H PRN PRN Reason: Heartburn or Indigestion Cephalexin (Keflex) 500 mg PO Q6HR [facility] Last Admin: 12/24/17 05:02 Dose: 500 mg Guaifenesin (Robitussin Sf) 200 mg PO Q4H PRN PRN Reason: Cough Hydralazine HCl (Apresoline) 10 mg SLOW IVP Q4H PRN PRN Reason: Systolic BP > 180 Lisinopril (Zestril) 5 mg PO DAILY [facility] Last Admin: 12/24/17 09:18 Dose: 5 mg Loratadine (Claritin) 10 mg PO DAILYPRN PRN PRN Reason: Sinus Symptoms Metoprolol Succinate (Toprol Xl) 12.5 mg PO DAILY [facility] Last Admin: 12/24/17 09:18 Dose: 12.5 mg Ccu Electrolyte (Replacement Protocol) 0 each FS PRN PRN PRN Reason: FOR ELECTROLYTE REPLACEMENT Ondansetron HCl (Zofran) 4 mg IVP Q6H PRN PRN Reason: Nausea/Vomiting Polyethylene Glycol (Miralax) 17 gm PO DAILY [facility] Last Admin: 12/24/17 09:16 Dose: Not Given Saccharomyces Boulardii (Florastor) 250 mg PO DAILY [facility] Last Admin: 12/24/17 09:18 Dose: 250 mg Senna (Senokot) 2 tab PO HSPRN PRN PRN Reason: Constipation Last Admin: 12/16/17 18:01 Dose: 2 tab
--- NOTE | 2017-12-24 17:20 | PRG ---
DATE OF SERVICE: 12/24/2017 SUBJECTIVE: Vinicio Jasmine has no complaints. He is walking around in the [place]ernard almost faster than I w as when I came up to make rounds, carrying his Pleur-Evac. He is obviously in no distress. OBJECTIVE: VITAL SIGNS: He is afebrile, heart rate is 100-108 today, respiratory rate is 15, his oximetry is 98 -100 on room air, blood pressure 150/91. LUNGS: Remarkable for decreased breath sounds on the right. HEART: Regular rhythm. ABDOMEN: Soft and nontender. IMAGING: Chest radiograph shows left thoracostomy tube still in place with tiny pneumothorax. Lower tube has been removed. There is atelectasis at the left base. LABORATORY DATA: There is no new lab. IMPRESSION: 1. Acute hypoxic respiratory failure, resolved. 2. Septic shock, resolved. 3. Empyema, status post decortication. 4. Diabetes. 5. Anemia, probably need some lab check tomorrow since it has been several days. He clinically look s very well.
[2017-12-25 05:17] LABS: Band 1 % (5-11); Eosinophils 5 % (0-10); Hemoglobin 8.3 g/dL (14.0-18.0); Hypochromia SLIGHT = 6-15 cells (100X) (0-5/hpf); Lymphocytes 35 % (21-51); MDiff Complete? YES; Mean Corpuscular HGB CONC 32.7 g/dL (32.0-36.0); Mean Corpuscular Hemoglobin 27.9 pg (27.0-31.0); Mean Corpuscular Volume 85.3 fl (80.0-94.0); Mean Platelet Volume 6.4 fL (7.4-10.4); Monocytes 1 % (0-10); Neutrophil 58 % (42-75); Platelet Count 506 thou/uL (130-400); RBC Distribution Width 17.5 % (11.5-14.5); Red Blood Cell (RBC) Count 2.96 mill/uL (4.70-6.10); White Blood Cell (WBC) Count 9.7 thou/uL (4.8-10.8)
[2017-12-25] MEDS: Cephalexin 250 MG CAP PO SCH ×4 (06:09→22:41)
[2017-12-25] MEDS: HYDROcodone/Acetaminophen 5/325 mg Tablet PO PRN ×3 (06:10→22:41)
[2017-12-25] MEDS: Lisinopril 5 MG TAB PO SCH (08:43)
[2017-12-25] MEDS: Polyethylene Glycol 3350 17 GM Packet PO SCH (08:44)
[2017-12-25] MEDS: Saccharomyces boulardii 250 MG CAP PO SCH (08:44)
--- NOTE | 2017-12-25 11:18 | PDOC.PN ---
- Subjective Encounter Start Date: 12/25/17 Encounter Start Time: 08:00 Subjective: no sob, feels better -: had his dressing changed this am - Objective MAR Reviewed: Yes Vital Signs & Weight: Vital Signs (12 hours) Temp Pulse Resp BP BP Pulse Ox 12/25/17 08:43 107 H 156/110 H 12/25/17 07:45 97.9 F 107 H 20 98 12/25/17 00:23 98.2 F 100 16 166/97 H 98 Weight Admit Weight 148 lb Weight 149 lb 14.629 oz Most Recent Monitor Data Heart Rate from ECG 109 NIBP 146/89 NIBP BP-Mean 103 Respiration from ECG 21 SpO2 100 I&O: 12/24/17 12/25/17 12/26/17 06:59 06:59 06:59 Intake Total 2700 800 Output Total 2200 102 Balance 500 698 Result Diagrams: 12/25/17 04:30 12/20/17 04:45 Additional Labs: Accuchecks 12/24/17 19:49 POC Glucose 103 Phys Exam - Physical Examination HEENT: PERRLA, moist MMs Neck: no JVD, supple Respiratory: no wheezing, no rales chest tube in place Cardiovascular: RRR, no significant murmur Gastrointestinal: soft, non-tender, positive bowel sounds Musculoskeletal: no edema, pulses present Neurological: non-focal, moves all 4 limbs Psychiatric: A&O x 3 Dx/Plan (1) Empyema lung Code(s): J86.9 - PYOTHORAX WITHOUT FISTULA Status: Acute Comment: s/p decortication & thoracotomy 12/11/17. Keflex (2) Acute blood loss as cause of postoperative anemia Code(s): D62 - ACUTE POSTHEMORRHAGIC ANEMIA Status: Acute Comment: Stable H/ H post 2 unit PRBC on 12/11/17, H/H stable (3) DM2 (diabetes mellitus, type 2) Status: Chronic Qualifiers: Diabetes mellitus complication status: with hyperglycemia Diabetes mellitus oil heaterman insulin use: without senior care use Qualified Code(s): E11.65 - Type 2 diabetes mellitus with hyperglycemia (4) HTN (hypertension) Code(s): I10 - ESSENTIAL (PRIMARY) HYPERTENSION Status: Chronic Qualifiers: Hypertension type: essential hypertension Qualified Code(s): I10 - Essential (primary) hypertension - Plan hemostable -: on keflex, norco prn -: is amb in hallway -: h/h around 07/01 -: small dose of lisinopril and toprol * . Review of Systems - Medications/Allergies Allergies/Adverse Reactions: Allergies Allergy/AdvReac Type Severity Reaction Status Date / Time No Known Drug Allergies Allergy Verified 10/31/17 06:20 Medications: Current Medications Acetaminophen (Tylenol) 650 mg PO Q4H PRN PRN Reason: Headache/Fever or Pain Hydrocodone Bitart/Acetaminophen ([place] 5/325) 1 tab PO Q4H PRN PRN Reason: Moderate Pain (4-6) Last Admin: 12/25/17 10:26 Dose: 1 tab Al Hydroxide/Mg Hydroxide (Maalox) 30 ml PO Q6H PRN PRN Reason: Heartburn or Indigestion Albuterol/Ipratropium (Duoneb) 3 ml NEB Q4H PRN PRN Reason: SOB Last Admin: 12/16/17 19:55 Dose: 3 ml Bisacodyl (Dulcolax) 10 mg PO DAILYPRN PRN PRN Reason: Constipation Last Admin: 12/15/17 08:31 Dose: 10 mg Calcium Carbonate (Tums) 1,000 mg PO Q4H PRN PRN Reason: Heartburn or Indigestion Cephalexin (Keflex) 500 mg PO Q6HR [facility] Last Admin: 12/25/17 11:12 Dose: 500 mg Guaifenesin (Robitussin Sf) 200 mg PO Q4H PRN PRN Reason: Cough Hydralazine HCl (Apresoline) 10 mg SLOW IVP Q4H PRN PRN Reason: Systolic BP > 180 Lisinopril (Zestril) 5 mg PO DAILY [facility] Last Admin: 12/25/17 08:43 Dose: 5 mg Loratadine (Claritin) 10 mg PO DAILYPRN PRN PRN Reason: Sinus Symptoms Metoprolol Succinate (Toprol Xl) 12.5 mg PO DAILY [facility] Last Admin: 12/25/17 08:44 Dose: 12.5 mg Ccu Electrolyte (Replacement Protocol) 0 each FS PRN PRN PRN Reason: FOR ELECTROLYTE REPLACEMENT Ondansetron HCl (Zofran) 4 mg IVP Q6H PRN PRN Reason: Nausea/Vomiting Polyethylene Glycol (Miralax) 17 gm PO DAILY [facility] Last Admin: 12/25/17 08:44 Dose: Not Given Saccharomyces Boulardii (Florastor) 250 mg PO DAILY [facility] Last Admin: 12/25/17 08:44 Dose: 250 mg Senna (Senokot) 2 tab PO HSPRN PRN PRN Reason: Constipation Last Admin: 12/16/17 18:01 Dose: 2 tab
--- NOTE | 2017-12-25 20:24 | PRG ---
DATE OF SERVICE: 12/25/2017 SUBJECTIVE: Mr. Jasmine's chest tube is still to waterseal. OBJECTIVE: VITAL SIGNS: He is afebrile, heart rate is 73, respiratory rate is 16, oximetry is 98% on room air a nd blood pressure 164/97. He continues to cruise the halls. He has Staphylococcus growing out of his pleural fluid from the 4t h urine cultures. This is oxacillin-sensitive Staph. Chest tube output was 50 mL yesterday, 150 mL for the last 24 hours up to this this morning. IMPRESSION AND PLAN: Status post decortication on the left for an empyema on the 4th appears to be c linically stable.
[2017-12-26] MEDS: Cephalexin 250 MG CAP PO SCH ×4 (04:58→23:49)
[2017-12-26] MEDS: HYDROcodone/Acetaminophen 5/325 mg Tablet PO PRN ×4 (04:58→21:45)
[2017-12-26 06:15] LABS: Band 4 % (5-11); Eosinophils 2 % (0-10); Hemoglobin 8.3 g/dL (14.0-18.0); Lymphocytes 46 % (21-51); MDiff Complete? YES; Mean Corpuscular HGB CONC 32.4 g/dL (32.0-36.0); Mean Corpuscular Hemoglobin 27.8 pg (27.0-31.0); Mean Corpuscular Volume 85.7 fl (80.0-94.0); Mean Platelet Volume 6.6 fL (7.4-10.4); Monocytes 2 % (0-10); Neutrophil 46 % (42-75); Platelet Count 517 thou/uL (130-400); RBC Distribution Width 17.7 % (11.5-14.5); Red Blood Cell (RBC) Count 2.99 mill/uL (4.70-6.10); White Blood Cell (WBC) Count 7.5 thou/uL (4.8-10.8)
--- NOTE | 2017-12-26 08:25 | RAD ---
UPRIGHT PORTABLE CHEST 1 VIEW: Date: 12/26/17 HISTORY: 52-year-old male with follow-up empyema. COMPARISON: 12/24/17. FINDINGS: Left chest tube and left subclavian catheters remain in place. The previously noted skin lashawn have been removed. There is some persistent left-sided pleural thickening or pleural rind. Possible very tiny residual left apical pneumothorax. No new process. Stable right chest. IMPRESSION: 1. Stable right chest. 2. Possible very tiny left apical pneumothorax. Some persistent left-sided pleural thickening or ple ural rind. POS: OFF
[2017-12-26] MEDS: Lisinopril 5 MG TAB PO SCH (08:57)
[2017-12-26] MEDS: Saccharomyces boulardii 250 MG CAP PO SCH (08:58)
[2017-12-26] MEDS: Polyethylene Glycol 3350 17 GM Packet PO SCH (09:02)
--- NOTE | 2017-12-26 09:25 | PRG ---
DATE OF SERVICE: 12/26/2017 PULMONARY AND CRITICAL CARE PROGRESS NOTE SUBJECTIVE: The patient is doing fairly well, has no complaints, still has chest tube in place. PHYSICAL EXAMINATION: VITAL SIGNS: His temperature is 98.4, pulse 100, respirations 18, O2 saturation 97%, blood pressure 133/79. HEENT: Unremarkable. NECK: No JVD. CHEST: Clear. There is a chest tube on the left. CARDIAC: S1 and S2 regular. ABDOMEN: Soft. EXTREMITIES: No edema. IMAGING DATA: His chest x-ray demonstrates fairly clear lung bush bilaterally with chest tube in t he left side. ASSESSMENT: 1. Status post acute hypoxic respiratory failure. 2. Status post septic shock. 3. Empyema on the left side which is now status post decortication. PLAN: Hopefully, the chest tube can be taken out later today if okay with Cardiothoracic Surgery. Be patton will need several weeks of antibiotics upon discharge. He can follow up with Dr. Rapp in 3-4 we eks.
--- NOTE | 2017-12-26 12:46 | PDOC.PN ---
- Subjective Encounter Start Date: 12/26/17 Encounter Start Time: 10:40 Subjective: is amb in hallway with chest tube -: no sob, feels better - Objective MAR Reviewed: Yes Vital Signs & Weight: Vital Signs (12 hours) Temp Pulse Resp BP Pulse Ox 12/26/17 08:10 98.2 F 107 H 12 133/80 97 12/26/17 08:00 98.2 F 107 H 12 97 12/26/17 01:09 98.4 F 100 18 133/79 97 Weight Admit Weight 148 lb Weight 149 lb 14.629 oz Most Recent Monitor Data Heart Rate from ECG 109 NIBP 146/89 NIBP BP-Mean 103 Respiration from ECG 21 SpO2 100 I&O: 12/25/17 12/26/17 12/27/17 06:59 06:59 06:59 Intake Total 800 1600 Output Total 102 3 Balance 698 1597 Result Diagrams: 12/26/17 05:20 12/20/17 04:45 Phys Exam - Physical Examination HEENT: PERRLA, moist MMs Neck: no JVD, supple Respiratory: no wheezing, no rales chest tube+ Cardiovascular: RRR, no significant murmur Gastrointestinal: soft, non-tender, positive bowel sounds Musculoskeletal: no edema, pulses present Neurological: non-focal, moves all 4 limbs Psychiatric: A&O x 3 Dx/Plan (1) Empyema lung Code(s): J86.9 - PYOTHORAX WITHOUT FISTULA Status: Acute Comment: s/p decortication & thoracotomy 12/11/17. Keflex (2) Acute blood loss as cause of postoperative anemia Code(s): D62 - ACUTE POSTHEMORRHAGIC ANEMIA Status: Acute Comment: Stable H/ H post 2 unit PRBC on 12/11/17, H/H stable (3) DM2 (diabetes mellitus, type 2) Status: Chronic Qualifiers: Diabetes mellitus complication status: with hyperglycemia Diabetes mellitus long term care social worker insulin use: without detention use Qualified Code(s): E11.65 - Type 2 diabetes mellitus with hyperglycemia (4) HTN (hypertension) Code(s): I10 - ESSENTIAL (PRIMARY) HYPERTENSION Status: Chronic Qualifiers: Hypertension type: essential hypertension Qualified Code(s): I10 - Essential (primary) hypertension - Plan chest tube per CTS advice -: norco prn, oral keflex for atleast 3-4 weeks -: on florastor, has some edema around thoracotomy site post op -: small dose of toprol and lisinopril -: hemostable, eating and ambulating well * . Review of Systems - Medications/Allergies Allergies/Adverse Reactions: Allergies Allergy/AdvReac Type Severity Reaction Status Date / Time No Known Drug Allergies Allergy Verified 10/31/17 06:20 Medications: Current Medications Acetaminophen (Tylenol) 650 mg PO Q4H PRN PRN Reason: Headache/Fever or Pain Hydrocodone Bitart/Acetaminophen ([place] 5/325) 1 tab PO Q4H PRN PRN Reason: Moderate Pain (4-6) Last Admin: 12/26/17 09:04 Dose: 1 tab Al Hydroxide/Mg Hydroxide (Maalox) 30 ml PO Q6H PRN PRN Reason: Heartburn or Indigestion Albuterol/Ipratropium (Duoneb) 3 ml NEB Q4H PRN PRN Reason: SOB Last Admin: 12/16/17 19:55 Dose: 3 ml Bisacodyl (Dulcolax) 10 mg PO DAILYPRN PRN PRN Reason: Constipation Last Admin: 12/15/17 08:31 Dose: 10 mg Calcium Carbonate (Tums) 1,000 mg PO Q4H PRN PRN Reason: Heartburn or Indigestion Cephalexin (Keflex) 500 mg PO Q6HR [facility] Last Admin: 12/26/17 12:13 Dose: 500 mg Guaifenesin (Robitussin Sf) 200 mg PO Q4H PRN PRN Reason: Cough Hydralazine HCl (Apresoline) 10 mg SLOW IVP Q4H PRN PRN Reason: Systolic BP > 180 Lisinopril (Zestril) 5 mg PO DAILY [facility] Last Admin: 12/26/17 08:57 Dose: 5 mg Loratadine (Claritin) 10 mg PO DAILYPRN PRN PRN Reason: Sinus Symptoms Metoprolol Succinate (Toprol Xl) 12.5 mg PO DAILY [facility] Last Admin: 12/26/17 08:58 Dose: 12.5 mg Ccu Electrolyte (Replacement Protocol) 0 each FS PRN PRN PRN Reason: FOR ELECTROLYTE REPLACEMENT Ondansetron HCl (Zofran) 4 mg IVP Q6H PRN PRN Reason: Nausea/Vomiting Polyethylene Glycol (Miralax) 17 gm PO DAILY [facility] Last Admin: 12/26/17 09:02 Dose: Not Given Saccharomyces Boulardii (Florastor) 250 mg PO DAILY [facility] Last Admin: 12/26/17 08:58 Dose: 250 mg Senna (Senokot) 2 tab PO HSPRN PRN PRN Reason: Constipation Last Admin: 12/16/17 18:01 Dose: 2 tab
[2017-12-27] MEDS: HYDROcodone/Acetaminophen 5/325 mg Tablet PO PRN ×3 (02:40→12:35)
[2017-12-27] MEDS: Cephalexin 250 MG CAP PO SCH ×2 (05:23→12:35)
[2017-12-27] MEDS: Saccharomyces boulardii 250 MG CAP PO SCH (08:09)
[2017-12-27] MEDS: Lisinopril 5 MG TAB PO SCH (08:11)
[2017-12-27] MEDS: Polyethylene Glycol 3350 17 GM Packet PO SCH (08:12)
--- NOTE | 2017-12-27 09:18 | PRG ---
DATE OF SERVICE: 12/27/2017 The patient feels better, had no acute complaints. PHYSICAL EXAMINATION: VITAL SIGNS: Temperature 98.2, pulse 90, blood pressure 170/96, O2 sat 93% room air. HEENT: Unremarkable. NECK: No JVD. CHEST: Clear. CARDIAC: S1 and S2 regular. ABDOMEN: Soft. EXTREMITIES: No edema. Chest tube still in place on the left side. ASSESSMENT: 1. Status post acute hypoxic respiratory failure. 2. Status post septic shock. 3. Status post evacuation left empyema. PLAN: Hopefully tube can come out in the next day. He would be ready for discharge after that tube is out.
[2017-12-27 11:57] VITALS: BP 150/91; TEMP 98.1
--- NOTE | 2017-12-27 14:20 | PDOC.PN ---
- Subjective Encounter Start Date: 12/27/17 Encounter Start Time: 11:00 Patient is seen today, alert and oriented. He had his chest tube out, waiting on Dr. Mehta to see pt and decide on discharging home. - Objective MAR Reviewed: Yes Vital Signs & Weight: Vital Signs (12 hours) Temp Pulse Resp BP BP Pulse Ox 12/27/17 11:56 98.1 F 95 16 150/91 H 99 12/27/17 08:11 90 170/96 H 12/27/17 08:00 97.8 F 90 18 98 12/27/17 04:00 98.2 F 98 16 153/91 H 93 L Weight Admit Weight 148 lb Weight 149 lb 14.629 oz Most Recent Monitor Data Heart Rate from ECG 109 NIBP 146/89 NIBP BP-Mean 103 Respiration from ECG 21 SpO2 100 I&O: 12/26/17 12/27/17 12/28/17 06:59 06:59 06:59 Intake Total 1600 1420 Output Total 3 210 Balance 1597 1210 Result Diagrams: 12/26/17 05:20 12/20/17 04:45 Radiology Reviewed by me: Yes Phys Exam - Physical Examination HEENT: PERRLA, moist MMs Neck: no nodes, no JVD Respiratory: no wheezing, no rales Cardiovascular: RRR, no significant murmur Gastrointestinal: soft, non-tender Musculoskeletal: no edema, pulses present Dx/Plan (1) Acute blood loss as cause of postoperative anemia Code(s): D62 - ACUTE POSTHEMORRHAGIC ANEMIA Status: Acute Comment: Stable H/ H post 2 unit PRBC on 12/11/17, H/H stable (2) Empyema lung Code(s): J86.9 - PYOTHORAX WITHOUT FISTULA Status: Acute Comment: s/p decortication & thoracotomy 12/11/17. Keflex (3) Hyponatremia Code(s): E87.1 - HYPO-OSMOLALITY AND HYPONATREMIA Status: Acute Comment: Stable.trang SÁNCHEZ d/t Empyema. Improving (4) DM2 (diabetes mellitus, type 2) Status: Chronic Qualifiers: Diabetes mellitus complication status: with hyperglycemia Diabetes mellitus [facility] insulin use: without [facility] use Qualified Code(s): E11.65 - Type 2 diabetes mellitus with hyperglycemia (5) HTN (hypertension) Code(s): I10 - ESSENTIAL (PRIMARY) HYPERTENSION Status: Chronic Qualifiers: Hypertension type: essential hypertension Qualified Code(s): I10 - Essential (primary) hypertension Comment: well controlled. continue to hold lisinopril, can restart by his PCP (6) Septic shock Code(s): A41.9 - SEPSIS, UNSPECIFIED ORGANISM; R65.21 - SEVERE SEPSIS WITH SEPTIC SHOCK Status: Resolved Comment: resolved - Plan PT/OT, social work nurse, incentive spirometry, out of bed/ambulate * . - Discharge Day Encounter end time: 11:30 Review of Systems - Review of Systems Constitutional: negative: fever, chills, sweats, weakness, malaise, other Eyes: negative: Pain, Vision Change, Conjunctivae Inflammation, Eyelid Inflammation, Redness, Other ENT: negative: Ear Pain, Ear Discharge, Nose Pain, Nose Discharge, Nose Congestion, Mouth Pain, Mouth Swelling, Throat Pain, Throat Swelling, Other Respiratory: negative: Cough, Dry, Shortness of Breath, Hemoptysis, SOB with Excertion, Pleuritic Pain, Sputum, Wheezing Cardiovascular: negative: chest pain, palpitations, orthopnea, paroxysmal nocturnal dyspnea, edema, light headedness, other Gastrointestinal: negative: Nausea, Vomiting, Abdominal Pain, Diarrhea, Constipation, Melena, Hematochezia, Other Musculoskeletal: negative: Neck Pain, Shoulder Pain, Arm Pain, Back Pain, Hand Pain, Leg Pain, Foot Pain, Other Skin: negative: Rash, Lesions, [place], Bruising, Other - Medications/Allergies Allergies/Adverse Reactions: Allergies Allergy/AdvReac Type Severity Reaction Status Date / Time No Known Drug Allergies Allergy Verified 10/31/17 06:20 Medications: Current Medications Acetaminophen (Tylenol) 650 mg PO Q4H PRN PRN Reason: Headache/Fever or Pain Hydrocodone Bitart/Acetaminophen ([place] 5/325) 1 tab PO Q4H PRN PRN Reason: Moderate Pain (4-6) Last Admin: 12/27/17 12:35 Dose: 1 tab Al Hydroxide/Mg Hydroxide (Maalox) 30 ml PO Q6H PRN PRN Reason: Heartburn or Indigestion Albuterol/Ipratropium (Duoneb) 3 ml NEB Q4H PRN PRN Reason: SOB Last Admin: 12/16/17 19:55 Dose: 3 ml Bisacodyl (Dulcolax) 10 mg PO DAILYPRN PRN PRN Reason: Constipation Last Admin: 12/15/17 08:31 Dose: 10 mg Calcium Carbonate (Tums) 1,000 mg PO Q4H PRN PRN Reason: Heartburn or Indigestion Cephalexin (Keflex) 500 mg PO Q6HR [facility]PL[facility] Last Admin: 12/27/17 12:35 Dose: 500 mg Guaifenesin (Robitussin Sf) 200 mg PO Q4H PRN PRN Reason: Cough Hydralazine HCl (Apresoline) 10 mg SLOW IVP Q4H PRN PRN Reason: Systolic BP > 180 Lisinopril (Zestril) 5 mg PO DAILY [facility] Last Admin: 12/27/17 08:11 Dose: 5 mg Loratadine (Claritin) 10 mg PO DAILYPRN PRN PRN Reason: Sinus Symptoms Metoprolol Succinate (Toprol Xl) 12.5 mg PO DAILY [facility] Last Admin: 12/27/17 08:10 Dose: 12.5 mg Ccu Electrolyte (Replacement Protocol) 0 each FS PRN PRN PRN Reason: FOR ELECTROLYTE REPLACEMENT Ondansetron HCl (Zofran) 4 mg IVP Q6H PRN PRN Reason: Nausea/Vomiting Polyethylene Glycol (Miralax) 17 gm PO DAILY [facility] Last Admin: 12/27/17 08:12 Dose: Not Given Saccharomyces Boulardii (Florastor) 250 mg PO DAILY [facility] Last Admin: 12/27/17 08:09 Dose: 250 mg Senna (Senokot) 2 tab PO HSPRN PRN PRN Reason: Constipation Last Admin: 12/16/17 18:01 Dose: 2 tab
--- NOTE | 2017-12-27 14:46 | DIS ---
DATE OF ADMISSION: 12/11/2017 DATE OF DISCHARGE: 12/27/2017 DIAGNOSES: Left empyema status post chest wall trauma and chest tube placement. PROCEDURES: Left thoracotomy with total pulmonary decortication. Cultures grew Staphylococcus aureu s. DISCHARGE MEDICATIONS: 1. Keflex 500 mg q.6 hours for 14 days. 2. Lisinopril 5 mg q. day. 3. Metoprolol 12.5 mg q. day. 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 He was urgently taken to the operating room and underwent decortication evacuating over 2 lite rs of pus from his left chest cavity that grew Staph aureus. His lung took a long time to reexpand a nd air leak to seal. The last of his chest tubes were removed today and is being discharged to home and to follow up with me in 2 weeks.
== END 2017-12-27 15:11 | disposition home or self-care (01) | DRG 853 ==
LOC: ERS 05:14 → SURG A 07:39 → CCU 14:25 → SURG B 12-14 23:54
PROVIDERS: ADMIT Internal Medicine; ATTEND Internal Medicine
PROC: 0BNL0ZZ Release Left Lung, Open Approach (ICD-10-PCS; principal; 2017-12-11)
PROC: 0W9800Z Drainage of Chest Wall with Drainage Device, Open Approach (ICD-10-PCS; 2017-12-11)
PROC: 30233N1 Transfusion of Nonautologous Red Blood Cells into Peripheral Vein, Percutaneous Approach (ICD-10-PCS; 2017-12-11)
DX: A41.9 Sepsis, unspecified organism (principal); R65.21 Severe sepsis with septic shock; J96.01 Acute respiratory failure with hypoxia; J86.9 Pyothorax without fistula; E11.65 Type 2 diabetes mellitus with hyperglycemia; E87.1 Hypo-osmolality and hyponatremia; D62 Acute posthemorrhagic anemia; E86.0 Dehydration; Z87.891 Personal history of nicotine dependence; Z23 Encounter for immunization; B95.61 Methicillin susceptible Staphylococcus aureus infection as the cause of diseases classified elsewhere; Z59.0 Homelessness
CPT/HCPCS: 36415; 36416; 36430; 71045; 71046; 71260; 80048; 80053; 80202; 82550; 82553; 82805; 83880; 84484; 85007; 85025; 85027; 86780; 86803; 86850; 86900; 86901; 87040; 87070; 87077; 87186; 87205; 87389; 87804; 90471; 90670; 90682; 94002; 94003; 94150; 94640; 96365; 96367; 99292; 99406; G0008; G0009; G8978-GP-CK; G8979-GP-CK; G8980-GP-CK; J1642; J1956; J2250; J2370; J2405; J2543; J2704; J3010; J3370; J7050; J7620; P9016; Q2036; S0020; S0028

== ENCOUNTER 2018-01-16 00:33 | Emergency (ER) | payer OTHER, SELFPAY ==
--- NOTE | 2018-01-16 08:32 | RAD ---
CHEST 1 VIEW: Date: 01/16/18 HISTORY: Rib pain. COMPARISON: 12/26/17. FINDINGS: The left thoracostomy tube has been removed. The left hemithorax is more lucent than the right. No ad ditional pneumothorax is appreciated. Layering left effusion. Volume loss left lower lobe. IMPRESSION: Layering left pleural effusion. No definite evidence of pneumothorax. POS: [facility]
== END 2018-01-16 04:03 ==
LOC: ERS 00:33
DX: R07.89 Other chest pain (principal); I10 Essential (primary) hypertension; E11.9 Type 2 diabetes mellitus without complications; J45.909 Unspecified asthma, uncomplicated; F17.210 Nicotine dependence, cigarettes, uncomplicated; Z71.6 Tobacco abuse counseling
CPT/HCPCS: 71045; 99406

== ENCOUNTER 2018-01-22 00:03 | Emergency (ER) | payer OTHER, SELFPAY ==
[2018-01-22 00:46] LABS: Hemoglobin 12.2 g/dL (14.0-18.0); Mean Corpuscular HGB CONC 31.3 g/dL (32.0-36.0); Mean Corpuscular Hemoglobin 29.2 pg (27.0-31.0); Mean Corpuscular Volume 93.4 fl (80.0-94.0); Mean Platelet Volume 8.8 fL (7.4-10.4); Platelet Count 167 thou/uL (130-400); RBC Distribution Width 19.4 % (11.5-14.5); Red Blood Cell (RBC) Count 4.18 mill/uL (4.70-6.10); White Blood Cell (WBC) Count 7.4 thou/uL (4.8-10.8)
[2018-01-22 00:51] LABS: Bilirubin Negative (Negative); Blood, Urine Negative (Negative); Clarity CLEAR (Clear); Glucose, Urine (Dipstick) Negative (Negative); Leukocyte Negative (Negative); Nitrite Negative (Negative); Protein, Urine (Dipstick) Negative (Neg-Trace); Specific Gravity, Urine 1.004 (1.002-1.036); Urobilinogen 0.2 mg/dL (0.2-1.0)
[2018-01-22 01:00] LABS: ALT (SGPT) 15 U/L (8-55); AST (SGOT) 29 U/L (5-34); Albumin 3.8 g/dL (3.5-5.0); Alkaline Phosphatase 85 U/L (40-150); Anion Gap 12 mmol/L (10-20); BUN (Urea Nitrogen) 6 mg/dL (8.4-25.7); Bilirubin, Total 0.2 mg/dL (0.2-1.2); Calc. Creatinine Clearance 0 mL/min (70-130); Carbon Dioxide 27 mmol/L (22-29); Chloride 105 mmol/L (98-107); Estimated GFR-MDRD Greater than 90; Globulin 4.7 g/dL (2.4-3.5); Glucose 90 mg/dL (70-105); Potassium 3.6 mmol/L (3.5-5.1); Protein, Total 8.5 g/dL (6.0-8.3); Sodium 140 mmol/L (136-145)
[2018-01-22 01:13] LABS: Eosinophils 2 % (0-10); Lymphocytes 49 % (21-51); MDiff Complete? YES; Monocytes 8 % (0-10); Neutrophil 41 % (42-75)
[2018-01-22] MEDS ORDERED: Ketorolac Tromethamine 60 MG/2 ML VIAL ONE (01:51)
[2018-01-22 02:01] LABS: Alcohol 304 mg/dL (Less than 10); Lipase 58 U/L (8-78)
--- NOTE | 2018-01-22 12:02 | RAD ---
TWO VIEWS CHEST: HISTORY: Chest pain exacerbated left pain. The patient has a history of staph infection in October of 2017. The patient states I need Narco. The patient had a previous chest radiograph on 01/16/18 where he stated on 01/16/18 that I am hurting real bad, I need Narco. It was noted at that time the patient's smelled of ethanol. FINDINGS: PA and lateral views of the chest are obtained. Two views chest demonstrate removal of the left-sided chest tubes. Areas of left lung parenchymal sc arring is seen. No evidence of pneumonia or pneumothorax seen. IMPRESSION: Post infectious changes seen in the left chest. No acute intrathoracic abnormality is seen. No evid ence of pneumonia or pneumothorax is seen. POS: [facility]
== END 2018-01-22 11:37 | disposition home or self-care (01) ==
LOC: ERS 00:03
DX: F10.129 Alcohol abuse with intoxication, unspecified (principal); R07.89 Other chest pain; E11.9 Type 2 diabetes mellitus without complications; J45.909 Unspecified asthma, uncomplicated; F17.210 Nicotine dependence, cigarettes, uncomplicated; Z71.6 Tobacco abuse counseling
CPT/HCPCS: 36415; 71046; 80053; 80307; 81003; 83690; 85025; 96372; 99406; J1885

== ENCOUNTER 2018-01-22 17:39 | Emergency (ER) | payer OTHER, SELFPAY | END 2018-01-22 18:53 | disposition home or self-care (01) | LOC: ERS 17:39 | DX: G89.18 Other acute postprocedural pain (principal); R07.81 Pleurodynia; I10 Essential (primary) hypertension; E11.9 Type 2 diabetes mellitus without complications; J45.909 Unspecified asthma, uncomplicated; F17.210 Nicotine dependence, cigarettes, uncomplicated | CPT/HCPCS: 99283 ==

== ENCOUNTER 2018-02-12 22:17 | Emergency (ER) | payer OTHER ==
[2018-02-12] MEDS ORDERED: Multivitamins, Adult 10 ML, Thiamine HCl 100 MG, Folic Acid 1 MG in Dextrose 5 %-0.45 %... IV SCH ×4 (22:45)
--- NOTE | 2018-02-12 23:18 | RAD ---
PORTABLE AP CHEST X-RAY: 02/12/2018 HISTORY: Altered mental status. Patient found unresponsive. COMPARISON: 01/16/2018 FINDINGS: The inferior left lateral costophrenic angle is excluded from view. The lungs are otherwise clear. The cardiac silhouette and pulmonary vasculature are within normal limits. There has been no interva l change from the prior study. IMPRESSION: No acute cardiopulmonary process. POS: [facility]
[2018-02-12 23:22] LABS: Eosinophils 10 % (0-10); Hemoglobin 14.4 g/dL (14.0-18.0); Lymphocytes 68 % (21-51); MDiff Complete? YES; Mean Corpuscular HGB CONC 33.3 g/dL (32.0-36.0); Mean Corpuscular Hemoglobin 30.1 pg (27.0-31.0); Mean Corpuscular Volume 90.4 fl (80.0-94.0); Mean Platelet Volume 8.6 fL (7.4-10.4); Monocytes 1 % (0-10); Neutrophil 21 % (42-75); PLT Morphology Comment Appears Adequate; Platelet Count 205 thou/uL (130-400); RBC Distribution Width 17.3 % (11.5-14.5); Red Blood Cell (RBC) Count 4.79 mill/uL (4.70-6.10); White Blood Cell (WBC) Count 6.1 thou/uL (4.8-10.8)
[2018-02-12 23:31] LABS: ALT (SGPT) 21 U/L (8-55); AST (SGOT) 43 U/L (5-34); Albumin 3.9 g/dL (3.5-5.0); Alkaline Phosphatase 88 U/L (40-150); Anion Gap 10 mmol/L (10-20); BUN (Urea Nitrogen) 4 mg/dL (8.4-25.7); Bilirubin, Total 0.2 mg/dL (0.2-1.2); CK (CPK) 195 U/L (30-200); Calc. Creatinine Clearance 0 mL/min (70-130); Calcium 9.3 mg/dL (7.8-10.44); Carbon Dioxide 28 mmol/L (22-29); Chloride 101 mmol/L (98-107); Estimated GFR-MDRD Greater than 90; Globulin 4.3 g/dL (2.4-3.5); Glucose 89 mg/dL (70-105); Lipase 47 U/L (8-78); Potassium 3.2 mmol/L (3.5-5.1); Protein, Total 8.2 g/dL (6.0-8.3); Sodium 136 mmol/L (136-145)
[2018-02-12 23:32] LABS: CKMB 2.6 ng/mL (0-6.6); Troponin I Less than 0.010 ng/mL (< 0.028)
[2018-02-13] MEDS ORDERED: Acetaminophen 500 MG TAB ONE (05:22)
== END 2018-02-13 09:20 | disposition home or self-care (01) ==
LOC: ERS 22:17
DX: Y90.8 Blood alcohol level of 240 mg/100 ml or more; J45.909 Unspecified asthma, uncomplicated; I10 Essential (primary) hypertension; F10.129 Alcohol abuse with intoxication, unspecified; E11.9 Type 2 diabetes mellitus without complications; F17.210 Nicotine dependence, cigarettes, uncomplicated
CPT/HCPCS: 71045; 80053; 80307; 82550; 82553; 83690; 84484; 85025; 93005; 94760; 96365; 96366; J3411; J7042

== ENCOUNTER 2018-02-17 23:36 | Emergency (ER) | payer OTHER ==
--- NOTE | 2018-02-18 07:52 | RAD ---
AP VIEW CHEST: HISTORY: This is a 52-year-old who presents with a history of ethanol use, altered mental status, confusion. FINDINGS: AP view chest is obtained. Comparison is made to previous exam from 02/12/18. AP view chest demonstrates the lungs to be well aerated. No evidence of active intrathoracic disease is seen. No evidence of effusions, pneumonia, or pneumothorax is seen. IMPRESSION: Unremarkable AP view chest. POS: [facility]
== END 2018-02-18 09:00 | disposition home or self-care (01) ==
LOC: ERS 23:36
DX: F10.129 Alcohol abuse with intoxication, unspecified (principal); E11.9 Type 2 diabetes mellitus without complications; J45.909 Unspecified asthma, uncomplicated; F17.210 Nicotine dependence, cigarettes, uncomplicated; I10 Essential (primary) hypertension
CPT/HCPCS: 71045

== ENCOUNTER 2018-02-18 22:46 | Emergency (ER) | payer OTHER ==
--- NOTE | 2018-02-18 23:30 | RAD ---
SINGLE VIEW CHEST: 02/18/18 COMPARISON: 02/18/18 HISTORY: Left rib pain that began a while ago. FINDINGS: Single view of the chest shows a normal sized cardiomediastinal silhouette. There is no evidence of c onsolidation, mass, or pleural effusion. The bones are unremarkable. IMPRESSION: No evidence of acute cardiopulmonary disease. POS: [facility]
[2018-02-18 23:46] LABS: Hemoglobin 13.4 g/dL (14.0-18.0); Mean Corpuscular HGB CONC 33.2 g/dL (32.0-36.0); Mean Corpuscular Hemoglobin 29.5 pg (27.0-31.0); Mean Corpuscular Volume 88.9 fl (80.0-94.0); Platelet Count 181 thou/uL (130-400); Red Blood Cell (RBC) Count 4.56 mill/uL (4.70-6.10); White Blood Cell (WBC) Count 4.3 thou/uL (4.8-10.8)
[2018-02-19] LABS: Eosinophils 7 % (0-10); Lymphocytes 76 % (21-51); MDiff Complete? YES; Monocytes 6 % (0-10); Neutrophil 11 % (42-75)
[2018-02-19 00:01] LABS: ALT (SGPT) 21 U/L (8-55); AST (SGOT) 39 U/L (5-34); Albumin 3.8 g/dL (3.5-5.0); Alkaline Phosphatase 87 U/L (40-150); Anion Gap 15 mmol/L (10-20); BUN (Urea Nitrogen) 5 mg/dL (8.4-25.7); Bilirubin, Total 0.2 mg/dL (0.2-1.2); Calc. Creatinine Clearance 0 mL/min (70-130); Calcium 9.2 mg/dL (7.8-10.44); Carbon Dioxide 28 mmol/L (22-29); Chloride 101 mmol/L (98-107); Estimated GFR-MDRD Greater than 90; Globulin 4.2 g/dL (2.4-3.5); Glucose 88 mg/dL (70-105); Magnesium 1.9 mg/dL (1.6-2.6); Potassium 3.7 mmol/L (3.5-5.1); Sodium 140 mmol/L (136-145)
[2018-02-19 00:04] LABS: CKMB 1.6 ng/mL (0-6.6); Troponin I Less than 0.010 ng/mL (< 0.028)
[2018-02-19] MEDS ORDERED: Ketorolac Tromethamine 30 MG/ML VIAL ONE (00:12)
--- NOTE | 2018-02-19 08:31 | CT ---
CTA CHEST: HISTORY: This 52-year-old presents with a history of left-sided chest pain. History of asthma. FINDINGS: Contrast-enhanced CTA of the chest is performed. Two-D and 3D reconstructed images were performed on an independent 3D work station. The images demonstrate no evidence of pulmonary arterial filling defect to suggest pulmonary emboli. There are areas of scarring seen in the left lung base, especially the anterior aspect of the left u pper lobe. No significant evidence of masses or lesions seen. IMPRESSION: No evidence of pulmonary emboli. POS: [facility]
[2018-02-19] MEDS ORDERED: ISOVUE-370 76%-LOCM 1 ML ONE (16:38)
== END 2018-02-19 02:43 | disposition home or self-care (01) ==
LOC: ERS 22:46
DX: R07.89 Other chest pain (principal); I10 Essential (primary) hypertension; E11.9 Type 2 diabetes mellitus without complications; J45.909 Unspecified asthma, uncomplicated; F17.210 Nicotine dependence, cigarettes, uncomplicated; Z79.899 Other long term (current) drug therapy
CPT/HCPCS: 36415; 71045; 71275; 80053; 82553; 83735; 84484; 85025; 85379; 96374; J1885

== ENCOUNTER 2018-02-23 13:40 | Outpatient (CLI) | payer OTHER ==
--- NOTE | 2018-02-23 15:14 | RAD ---
CHEST PA AND LATERAL: History: 52-year-old male with history of left rib pain and chest pain. History of dyspnea. Comparison: 02-18-18 FINDINGS: Heart size is normal. Minimal left sided pleural thickening with some patchy parenchymal changes in t he left chest which appear stable from prior study. No confluent pneumonia or overt edema. IMPRESSION: Stable minimal pleural and parenchymal opacity changes in the left lower chest. No evidence of pneumo smitha or other acute process. POS: [facility]
== END 2018-02-23 13:41 | disposition home or self-care (01) ==
LOC: RAD 13:40
PROVIDERS: ATTEND Internal Medicine
DX: R06.00 Dyspnea, unspecified (principal); R91.8 Other nonspecific abnormal finding of lung field
CPT/HCPCS: 71046

== ENCOUNTER 2018-03-28 03:06 | Emergency (ER) | payer OTHER, SELFPAY ==
[2018-03-28 03:58] LABS: Eosinophils 8 % (0-10); Hemoglobin 15.8 g/dL (14.0-18.0); Lymphocytes 67 % (21-51); MDiff Complete? YES; Mean Corpuscular HGB CONC 33.9 g/dL (32.0-36.0); Mean Corpuscular Hemoglobin 30.3 pg (27.0-31.0); Mean Corpuscular Volume 89.5 fl (80.0-94.0); Mean Platelet Volume 9.1 fL (7.4-10.4); Monocytes 4 % (0-10); Neutrophil 21 % (42-75); PLT Morphology Comment Appears Decreased; Platelet Count 117 thou/uL (130-400); RBC Distribution Width 13.9 % (11.5-14.5); Red Blood Cell (RBC) Count 5.21 mill/uL (4.70-6.10); White Blood Cell (WBC) Count 5.4 thou/uL (4.8-10.8)
[2018-03-28 03:59] LABS: ALT (SGPT) 42 U/L (8-55); AST (SGOT) 61 U/L (5-34); Albumin 4.3 g/dL (3.5-5.0); Alkaline Phosphatase 160 U/L (40-150); Anion Gap 12 mmol/L (10-20); BUN (Urea Nitrogen) 4 mg/dL (8.4-25.7); Bilirubin, Total 0.5 mg/dL (0.2-1.2); Calc. Creatinine Clearance 0 mL/min (70-130); Calcium 9.3 mg/dL (7.8-10.44); Carbon Dioxide 28 mmol/L (22-29); Chloride 98 mmol/L (98-107); Estimated GFR-MDRD Greater than 90; Globulin 4.6 g/dL (2.4-3.5); Glucose 103 mg/dL (70-105); Potassium 3.7 mmol/L (3.5-5.1); Protein, Total 8.9 g/dL (6.0-8.3); Sodium 134 mmol/L (136-145)
[2018-03-28 04:03] LABS: Troponin I Less than 0.010 ng/mL (< 0.028)
[2018-03-28] MEDS ORDERED: Acetaminophen/Codeine 30-300mg Tablet ONE (06:57)
[2018-03-28] MEDS ORDERED: Ketorolac Tromethamine 30 MG/ML VIAL ONE (07:02)
--- NOTE | 2018-03-28 08:54 | RAD ---
CHEST PA AND LATERAL: HISTORY: A 52-year-old male with a history of dyspnea. COMPARISON: 02/23/18. FINDINGS: Persistent patchy parenchymal changes in the left mid lung zone with minimal left-sided pleural thick ening. No confluent pneumonia or overt edema. IMPRESSION: Stable minimal pleural and parenchymal opacity changes in the left chest. No new process. POS: [facility]
--- NOTE | 2018-03-28 11:51 | CT ---
PRELIMINARY REPORT/[facility]/EMERGENCY AFTER HOURS PROCEDURE: EXAM: CT Chest Without Intravenous Contrast CLINICAL HISTORY: 52 years old, male; Pain and signs and symptoms; Shortness of breath; Chest pain; Left-sided chest pa in; Patient HX: SOB; Left-sided chest pain, HX of pneumothorax TECHNIQUE: Axial computed tomography images of the chest without intravenous contrast. Coronal reformatted images were created and reviewed. COMPARISON: CTA Angio Chest W WO Con 2018-02-19 01:16 FINDINGS: Lungs: Unremarkable. No mass. No consolidation. Pleural space: Unremarkable. No pneumothorax. No significant effusion. Heart: Unremarkable. No cardiomegaly. No significant pericardial effusion. Bones/joints: There is an old left rib fracture. No dislocation. Soft tissues: Unremarkable. Vasculature: Unremarkable. No thoracic aortic aneurysm. Lymph nodes: Unremarkable. No enlarged lymph nodes. Liver: There is diffuse fatty infiltration of the liver. No masses. IMPRESSION: No acute findings. Fatty liver. Thank you for allowing us to participate in the care of your patient. Dictated and Authenticated by: Hector Guthrie MD 03/28/2018 5:51 AM Central Time ([place] & [place]) FINAL REPORT CT CHEST NONCONTRAST PERFORMED ON AN EMERGENCY BASIS: Date: 03/28/18 Time: 0425 hours HISTORY: Chest pain. Dyspnea. Prior pneumothorax. FINDINGS: Findings agree with the preliminary report by [facility]. No evidence of pneumothorax. Lungs remain hyperin flated. Lack of contrast limits evaluation of the soft tissues. POS: [facility]
== END 2018-03-28 07:19 | disposition home or self-care (01) ==
LOC: ERS 03:06
DX: J45.901 Unspecified asthma with (acute) exacerbation (principal); I10 Essential (primary) hypertension; E11.9 Type 2 diabetes mellitus without complications; F17.210 Nicotine dependence, cigarettes, uncomplicated; Z71.6 Tobacco abuse counseling; Z79.899 Other long term (current) drug therapy
CPT/HCPCS: 36415; 71046; 71250; 80053; 82553; 84484; 85025; 93005; 96374; 99406; J1885

== ENCOUNTER 2018-04-04 09:57 | Emergency (ER) | payer SELFPAY ==
[2018-04-04] MEDS ORDERED: Ketorolac Tromethamine 30 MG/ML VIAL ONE (10:22)
[2018-04-04 11:06] LABS: ALT (SGPT) 162 U/L (8-55); AST (SGOT) 1104 U/L (5-34); Albumin 3.8 g/dL (3.5-5.0); Alkaline Phosphatase 185 U/L (40-150); Anion Gap 17 mmol/L (10-20); BUN (Urea Nitrogen) 10 mg/dL (8.4-25.7); Bilirubin, Total 0.5 mg/dL (0.2-1.2); Calc. Creatinine Clearance 0 mL/min (70-130); Calcium 8.4 mg/dL (7.8-10.44); Carbon Dioxide 18 mmol/L (22-29); Chloride 105 mmol/L (98-107); Estimated GFR-MDRD Greater than 90; Globulin 3.6 g/dL (2.4-3.5); Glucose 158 mg/dL (70-105); Lipase 55 U/L (8-78); Potassium 3.4 mmol/L (3.5-5.1); Protein, Total 7.4 g/dL (6.0-8.3); Sodium 137 mmol/L (136-145)
--- NOTE | 2018-04-04 11:50 | RAD ---
CHEST TWO VIEWS: 04/04/2018 HISTORY: Hypoglycemia. Weakness. COMPARISON: 03/28/2018 FINDINGS: There is no pneumothorax seen on either side. There is no evidence of pleural effusion. Heart and m ediastinal contours are unchanged. No acute osseous abnormality is seen. There is mild increased linear density in the mid left lung zone, in the medial left lung base, which appears similar when compared to prior imaging, and may represent scar/volume loss. IMPRESSION: No acute findings. POS: [facility]
== END 2018-04-04 12:21 | disposition home or self-care (01) ==
LOC: ERS 09:57
DX: R07.89 Other chest pain (principal); I10 Essential (primary) hypertension; E11.9 Type 2 diabetes mellitus without complications; J45.909 Unspecified asthma, uncomplicated; F17.210 Nicotine dependence, cigarettes, uncomplicated; Z79.899 Other long term (current) drug therapy
CPT/HCPCS: 36416; 71046; 80053; 83690; 93005; 96374; J1885

== ENCOUNTER 2018-04-14 03:27 | Emergency (ER) | payer SELFPAY ==
[2018-04-14] MEDS ORDERED: Ketorolac Tromethamine 30 MG/ML VIAL ONE (04:03)
[2018-04-14 04:26] LABS: Hemoglobin 12.3 g/dL (14.0-18.0); Mean Corpuscular HGB CONC 34.5 g/dL (32.0-36.0); Mean Corpuscular Hemoglobin 30.9 pg (27.0-31.0); Mean Corpuscular Volume 89.5 fl (80.0-94.0); Mean Platelet Volume 7.2 fL (7.4-10.4); Platelet Count 149 thou/uL (130-400); RBC Distribution Width 13.7 % (11.5-14.5); Red Blood Cell (RBC) Count 3.97 mill/uL (4.70-6.10); White Blood Cell (WBC) Count 3.4 thou/uL (4.8-10.8)
[2018-04-14 04:47] LABS: Eosinophils 4 % (0-10); Lymphocytes 74 % (21-51); MDiff Complete? YES; Monocytes 9 % (0-10); Neutrophil 10 % (42-75); Reactive Lymphocytes 3 % (0-10)
[2018-04-14 04:50] LABS: CKMB 1.7 ng/mL (0-6.6); Troponin I Less than 0.010 ng/mL (< 0.028)
[2018-04-14 04:55] LABS: ALT (SGPT) 39 U/L (8-55); AST (SGOT) 53 U/L (5-34); Albumin 3.8 g/dL (3.5-5.0); Alkaline Phosphatase 113 U/L (40-150); Anion Gap 14 mmol/L (10-20); BUN (Urea Nitrogen) 4 mg/dL (8.4-25.7); Bilirubin, Total 0.3 mg/dL (0.2-1.2); Calc. Creatinine Clearance 0 mL/min (70-130); Calcium 8.7 mg/dL (7.8-10.44); Carbon Dioxide 26 mmol/L (22-29); Chloride 102 mmol/L (98-107); Estimated GFR-MDRD Greater than 90; Globulin 3.2 g/dL (2.4-3.5); Glucose 87 mg/dL (70-105); Potassium 3.1 mmol/L (3.5-5.1); Sodium 139 mmol/L (136-145)
[2018-04-14] MEDS ORDERED: Potassium Chloride 20 MEQ TAB ONE (05:05)
--- NOTE | 2018-04-14 07:44 | RAD ---
PORTABLE CHEST 1 VIEW: DATE: 04/14/18. TIME: 2:52 a.m. HISTORY: Chest pain. COMPARISON: Comparison is made with the exam of 04/04/18. FINDINGS: The heart size is normal. The lungs are expanded without focal areas of consolidation/pneumothorax, or pleural effusions. IMPRESSION: No acute process. POS: [facility]
== END 2018-04-14 05:32 | disposition home or self-care (01) ==
LOC: ERS 03:27
DX: R07.89 Other chest pain (principal); E11.9 Type 2 diabetes mellitus without complications; J45.909 Unspecified asthma, uncomplicated; I10 Essential (primary) hypertension; F17.210 Nicotine dependence, cigarettes, uncomplicated
CPT/HCPCS: 36415; 71045; 80053; 82553; 84484; 85025; 93005; 96374; J1885

== ENCOUNTER 2018-06-23 18:56 | Emergency (ER) | payer SELFPAY | END 2018-06-23 23:05 | disposition home or self-care (01) | LOC: ERS 18:56 | DX: F10.129 Alcohol abuse with intoxication, unspecified (principal); I10 Essential (primary) hypertension; E11.9 Type 2 diabetes mellitus without complications; J45.909 Unspecified asthma, uncomplicated; F17.210 Nicotine dependence, cigarettes, uncomplicated; Z79.899 Other long term (current) drug therapy | CPT/HCPCS: 99283 ==

== ENCOUNTER 2018-07-05 23:04 | Emergency (ER) | payer SELFPAY ==
--- NOTE | 2018-07-05 23:43 | RAD ---
LEFT RIBS THREE VIEWS: 07/05/18 HISTORY: Left chest wall pain. FINDINGS/IMPRESSION: No displaced rib fracture, aggressive osseous erosions, or pneumothorax are apparent. POS: [facility]
[2018-07-06] MEDS ORDERED: Ketorolac Tromethamine 30 MG/ML VIAL ONE (00:06)
[2018-07-06] MEDS ORDERED: HYDROcodone/Acetaminophen 10/325 mg Tablet ONE (00:06)
--- NOTE | 2018-07-08 20:18 | EKG ---
Test Reason : Blood Pressure : / mmHG Vent. Rate : 076 BPM Atrial Rate : 076 BPM P-R Int : 126 ms QRS Dur : 086 ms QT Int : 392 ms P-R-T Axes : 075 078 072 degrees QTc Int : 441 ms Normal sinus rhythm Normal ECG Confirmed by JOSEMANUEL EVANS ([id number]), film editor supervisor CHARLEE LOPES ([id number]) on 07/08/2018 8:17:51 PM Referred By: Confirmed By:JOSEMANUEL EVANS
== END 2018-07-06 00:40 | disposition home or self-care (01) ==
LOC: ERS 23:04
DX: G89.28 Other chronic postprocedural pain (principal); R07.81 Pleurodynia; M79.2 Neuralgia and neuritis, unspecified; I10 Essential (primary) hypertension; E11.9 Type 2 diabetes mellitus without complications; J45.909 Unspecified asthma, uncomplicated; F17.210 Nicotine dependence, cigarettes, uncomplicated; Z79.899 Other long term (current) drug therapy
CPT/HCPCS: 93005; 96372; J1885

== ENCOUNTER 2021-02-20 07:06 | Emergency (ER) | payer OTHER, SELFPAY ==
[2021-02-20] MEDS ORDERED: hydrALAZINE 20 MG/ML VIAL ONE (08:04)
[2021-02-20 08:11] LABS: #Eosinphils 0.1 thou/uL (0.0-0.7); #Lymphocytes 0.7 thou/uL (1.20-3.40); #Monocytes 0.2 thou/uL (0.11-0.59); #Neutrophils 2.2 thou/uL (1.40-6.50); %Basophils 0.3 % (0.0-1.0); %Eosinophils 4.3 % (0.0-10.0); %Lymphocytes 21.7 % (21.0-51.0); %Monocytes 4.6 % (0.0-10.0); %Neutrophils 69.1 % (42.0-75.0); Hemoglobin 16.3 g/dL (14.0-18.0); Mean Corpuscular HGB CONC 34.4 g/dL (32.0-36.0); Mean Corpuscular Hemoglobin 31.3 pg (27.0-31.0); Mean Corpuscular Volume 90.8 fL (78.0-98.0); Mean Platelet Volume 10.2 fL (7.4-10.4); Platelet Count 140 thou/uL (130-400); RBC Distribution Width 13.1 % (11.5-14.5); White Blood Cell (WBC) Count 3.2 thou/uL (4.8-10.8)
[2021-02-20 08:31] LABS: ALT (SGPT) 42 U/L (8-55); AST (SGOT) 41 U/L (5-34); Albumin 4.8 g/dL (3.5-5.0); Alkaline Phosphatase 63 U/L (40-110); Anion Gap 17 mmol/L (10-20); BUN (Urea Nitrogen) 12 mg/dL (8.4-25.7); Bilirubin, Total 0.4 mg/dL (0.2-1.2); Calc. Creatinine Clearance 0 mL/min (70-130); Calcium 9.7 mg/dL (7.8-10.44); Carbon Dioxide 23 mmol/L (22-29); Chloride 102 mmol/L (98-107); Globulin 3.5 g/dL (2.4-3.5); Glucose 98 mg/dL (70-105); Lipase 35 U/L (8-78); Potassium 3.7 mmol/L (3.5-5.1); Protein, Total 8.3 g/dL (6.0-8.3); Sodium 138 mmol/L (136-145)
[2021-02-20 08:53] LABS: SARS-CoV-2 NAA Rapid Test Not Detected (NotDetected)
== END 2021-02-20 11:05 | disposition home or self-care (01) ==
LOC: ERS 07:06
DX: J44.1 Chronic obstructive pulmonary disease with (acute) exacerbation (principal); Z20.822 Contact with and (suspected) exposure to COVID-19; I10 Essential (primary) hypertension; E11.9 Type 2 diabetes mellitus without complications; F17.210 Nicotine dependence, cigarettes, uncomplicated
CPT/HCPCS: 0240U; 36415; 71045; 80053; 83605; 83690; 84484; 85025; 87040; 93005; 96365; 96375; J0360

== ENCOUNTER 2022-04-02 12:55 | Inpatient (IN) | payer SELFPAY ==
[2022-04-02] MEDS ORDERED: Acetaminophen 500 MG TAB ONE (13:57)
[2022-04-02] MEDS ORDERED: Aspirin Chewable 81 MG TAB ONE (13:57)
[2022-04-02 14:21] LABS: #Eosinphils 0.1 thou/uL (0.0-0.7); #Lymphocytes 0.9 thou/uL (1.20-3.40); #Monocytes 0.4 thou/uL (0.11-0.59); #Neutrophils 3.5 thou/uL (1.40-6.50); %Basophils 0.7 % (0.0-1.0); %Eosinophils 1.2 % (0.0-10.0); %Lymphocytes 17.9 % (21.0-51.0); %Monocytes 7.3 % (0.0-10.0); %Neutrophils 72.9 % (42.0-75.0); Hemoglobin 13.5 g/dL (14.0-18.0); Mean Corpuscular HGB CONC 33.7 g/dL (32.0-36.0); Mean Corpuscular Hemoglobin 31.2 pg (27.0-31.0); Mean Corpuscular Volume 92.6 fL (78.0-98.0); Mean Platelet Volume 7.1 fL (7.4-10.4); Platelet Count 282 thou/uL (130-400); RBC Distribution Width 12.9 % (11.5-14.5); Red Blood Cell (RBC) Count 4.33 mill/uL (4.70-6.10); White Blood Cell (WBC) Count 4.8 thou/uL (4.8-10.8)
[2022-04-02 14:48] LABS: ALT (SGPT) 71 U/L (8-55); AST (SGOT) 82 U/L (5-34); Albumin 4.4 g/dL (3.5-5.0); Alkaline Phosphatase 74 U/L (40-110); Anion Gap 15 mmol/L (10-20); BUN (Urea Nitrogen) 5 mg/dL (8.4-25.7); Bilirubin, Total 0.4 mg/dL (0.2-1.2); Calc. Creatinine Clearance 0 mL/min (70-130); Calcium 9.7 mg/dL (7.8-10.44); Carbon Dioxide 24 mmol/L (22-29); Chloride 90 mmol/L (98-107); Globulin 3.8 g/dL (2.4-3.5); Glucose 91 mg/dL (70-105); Lipase 48 U/L (8-78); Potassium 4.1 mmol/L (3.5-5.1); Protein, Total 8.2 g/dL (6.0-8.3); Sodium 125 mmol/L (136-145)
[2022-04-02] MEDS ORDERED: Ondansetron ODT 4 MG TAB ONE (14:49)
[2022-04-02] MEDS ORDERED: Ibuprofen 200 MG TAB ONE (16:06)
[2022-04-02] MEDS ORDERED: Lidocaine 5% Patch TD SCH (16:15)
[2022-04-02] MEDS ORDERED: hydrALAZINE 20 MG/ML VIAL SLOW IVP PRN (16:44)
[2022-04-02] MEDS ORDERED: HYDROcodone/Acetaminophen 5/325 mg Tablet PO PRN (16:44)
[2022-04-02] MEDS ORDERED: Ondansetron PF 4 MG/2 ML Vial IVP PRN (16:44)
[2022-04-02] MEDS ORDERED: Acetaminophen 325 MG TAB PO PRN (16:44)
[2022-04-02] MEDS ORDERED: Ondansetron ODT 4 MG TAB PO PRN (16:44)
[2022-04-02 17:48] LABS: BUN (Urea Nitrogen) 5 mg/dL (8.4-25.7); Calc. Creatinine Clearance 0 mL/min (70-130); Calcium 9.4 mg/dL (7.8-10.44); Carbon Dioxide 25 mmol/L (22-29); Glucose 83 mg/dL (70-105)
[2022-04-02 17:54] LABS: Anion Gap 14 mmol/L (10-20); Chloride 94 mmol/L (98-107); Potassium 4.7 mmol/L (3.5-5.1); Sodium 128 mmol/L (136-145)
[2022-04-02] MEDS ORDERED: Amlodipine 5 MG TAB PO SCH (18:00)
[2022-04-02 18:07] VITALS: BMI 19.5
[2022-04-02] MEDS: Sodium Chloride 0.9% 1,000 ML IV SCH (18:54)
[2022-04-02 21:22] LABS: Anion Gap 13 mmol/L (10-20); BUN (Urea Nitrogen) 6 mg/dL (8.4-25.7); Calc. Creatinine Clearance 74 mL/min (70-130); Carbon Dioxide 25 mmol/L (22-29); Chloride 94 mmol/L (98-107); Glucose 82 mg/dL (70-105); Potassium 4.2 mmol/L (3.5-5.1); Sodium 128 mmol/L (136-145)
[2022-04-03 02:13] LABS: SARS-CoV-2 PCR by NAA Not Detected (NotDetected)
[2022-04-03] MEDS: Sodium Chloride 0.9% 1,000 ML IV SCH (05:42)
[2022-04-03 06:49] LABS: #Eosinphils 0.2 thou/uL (0.0-0.7); #Monocytes 0.5 thou/uL (0.11-0.59); #Neutrophils 2.2 thou/uL (1.40-6.50); %Basophils 0.2 % (0.0-1.0); %Eosinophils 4.4 % (0.0-10.0); %Lymphocytes 25.8 % (21.0-51.0); %Monocytes 13.3 % (0.0-10.0); %Neutrophils 56.3 % (42.0-75.0); Hemoglobin 13.1 g/dL (14.0-18.0); Mean Corpuscular HGB CONC 32.9 g/dL (32.0-36.0); Mean Corpuscular Hemoglobin 31.2 pg (27.0-31.0); Mean Corpuscular Volume 94.7 fL (78.0-98.0); Mean Platelet Volume 6.6 fL (7.4-10.4); Platelet Count 252 thou/uL (130-400); RBC Distribution Width 12.7 % (11.5-14.5)
[2022-04-03 07:07] LABS: Anion Gap 11 mmol/L (10-20); BUN (Urea Nitrogen) 5 mg/dL (8.4-25.7); Calc. Creatinine Clearance 81 mL/min (70-130); Calcium 9.1 mg/dL (7.8-10.44); Carbon Dioxide 25 mmol/L (22-29); Chloride 100 mmol/L (98-107); Glucose 131 mg/dL (70-105); Potassium 3.9 mmol/L (3.5-5.1); Sodium 132 mmol/L (136-145)
[2022-04-03] MEDS ORDERED: Lisinopril 5 MG TAB PO SCH (09:00)
[2022-04-03 10:37] VITALS: BP 147/76; TEMP 98.2
[2022-04-03] MEDS ORDERED: Acetaminophen 500 MG TAB PO SCH (12:00)
== END 2022-04-03 13:36 | disposition home or self-care (01) | DRG 641 ==
LOC: ERS 12:55 → 2NO 16:25
PROVIDERS: ADMIT Internal Medicine; ATTEND Hospitalist
DX: E87.1 Hypo-osmolality and hyponatremia (principal); Z20.822 Contact with and (suspected) exposure to COVID-19; I10 Essential (primary) hypertension; J45.909 Unspecified asthma, uncomplicated; I16.0 Hypertensive urgency; E11.9 Type 2 diabetes mellitus without complications; F17.210 Nicotine dependence, cigarettes, uncomplicated; Z83.3 Family history of diabetes mellitus; Z79.899 Other long term (current) drug therapy; Z79.891 Long term (current) use of opiate analgesic; Z82.49 Family history of ischemic heart disease and other diseases of the circulatory system
CPT/HCPCS: 36415; 36416; 71045; 80053; 83690; 83880; 84484; 85025; 93005; J0360; J7050; Q0162; U0003; U0005

== ENCOUNTER 2022-05-29 11:30 | Emergency (ER) | payer SELFPAY ==
[2022-05-29 12:21] LABS: #Lymphocytes 0.4 thou/uL (1.20-3.40); #Monocytes 0.4 thou/uL (0.11-0.59); #Neutrophils 5.2 thou/uL (1.40-6.50); %Basophils 0.1 % (0.0-1.0); %Eosinophils 0.2 % (0.0-10.0); %Lymphocytes 6.1 % (21.0-51.0); %Monocytes 6.2 % (0.0-10.0); %Neutrophils 87.4 % (42.0-75.0); Hemoglobin 12.6 g/dL (14.0-18.0); Mean Corpuscular HGB CONC 33.5 g/dL (32.0-36.0); Mean Corpuscular Hemoglobin 32.8 pg (27.0-31.0); Mean Corpuscular Volume 98.2 fL (78.0-98.0); Mean Platelet Volume 8.3 fL (7.4-10.4); Platelet Count 150 thou/uL (130-400); RBC Distribution Width 13.5 % (11.5-14.5); Red Blood Cell (RBC) Count 3.82 mill/uL (4.70-6.10); White Blood Cell (WBC) Count 5.9 thou/uL (4.8-10.8)
[2022-05-29 12:46] LABS: Anion Gap 22 mmol/L (10-20); BUN (Urea Nitrogen) 11 mg/dL (8.4-25.7); Calc. Creatinine Clearance 0 mL/min (70-130); Calcium 9.1 mg/dL (7.8-10.44); Carbon Dioxide 19 mmol/L (22-29); Chloride 91 mmol/L (98-107); Estimated GFR 103; Glucose 91 mg/dL (70-105); Potassium 4.6 mmol/L (3.5-5.1); Sodium 127 mmol/L (136-145)
== END 2022-05-29 14:27 | disposition home or self-care (01) ==
LOC: ERS 11:30
DX: E11.649 Type 2 diabetes mellitus with hypoglycemia without coma (principal); E87.1 Hypo-osmolality and hyponatremia; I10 Essential (primary) hypertension; F17.210 Nicotine dependence, cigarettes, uncomplicated
CPT/HCPCS: 36415; 36416; 80048; 85025; 93005; 96360

== ENCOUNTER 2022-06-13 22:43 | Emergency (ER) | payer OTHER, SELFPAY ==
[2022-06-14] MEDS ORDERED: Ibuprofen 800 MG TAB ONE (00:14)
== END 2022-06-14 00:20 | disposition home or self-care (01) ==
LOC: ERS 22:43
DX: S09.90XA Unspecified injury of head, initial encounter (principal); S20.213A Contusion of bilateral front wall of thorax, initial encounter; S00.83XA Contusion of other part of head, initial encounter; I10 Essential (primary) hypertension; E11.9 Type 2 diabetes mellitus without complications; F17.210 Nicotine dependence, cigarettes, uncomplicated; V19.9XXA Pedal cyclist (driver) (passenger) injured in unspecified traffic accident, initial encounter
CPT/HCPCS: 70450; 70486; 71045; 72125; 93005

== ENCOUNTER 2022-06-30 00:59 | Emergency (ER) | payer SELFPAY ==
[2022-06-30 01:31] LABS: #Basophils 0.1 thou/uL (0.0-0.2); #Eosinphils 0.3 thou/uL (0.0-0.7); #Lymphocytes 2.2 thou/uL (1.20-3.40); #Monocytes 0.6 thou/uL (0.11-0.59); #Neutrophils 1.4 thou/uL (1.40-6.50); %Basophils 1.2 % (0.0-1.0); %Monocytes 13.3 % (0.0-10.0); %Neutrophils 30.5 % (42.0-75.0); Hemoglobin 12.8 g/dL (14.0-18.0); Mean Corpuscular HGB CONC 33.6 g/dL (32.0-36.0); Mean Corpuscular Hemoglobin 33.9 pg (27.0-31.0); Mean Platelet Volume 8.4 fL (7.4-10.4); Platelet Count 159 thou/uL (130-400); RBC Distribution Width 12.5 % (11.5-14.5); Red Blood Cell (RBC) Count 3.79 mill/uL (4.70-6.10); White Blood Cell (WBC) Count 4.6 thou/uL (4.8-10.8)
[2022-06-30 02:02] LABS: ALT (SGPT) 190 U/L (8-55); AST (SGOT) 196 U/L (5-34); Acetaminophen Less than 10.0 mcg/mL (10.0-30.0); Albumin 3.9 g/dL (3.5-5.0); Alcohol 231 mg/dL (Less than 10); Alkaline Phosphatase 100 U/L (40-110); Anion Gap 19 mmol/L (10-20); BUN (Urea Nitrogen) 5 mg/dL (8.4-25.7); Calc. Creatinine Clearance 0 mL/min (70-130); Calcium 9.2 mg/dL (7.8-10.44); Carbon Dioxide 18 mmol/L (22-29); Chloride 96 mmol/L (98-107); Estimated GFR 103; Globulin 3.4 g/dL (2.4-3.5); Glucose 93 mg/dL (70-105); Magnesium 1.8 mg/dL (1.6-2.6); Potassium 4.4 mmol/L (3.5-5.1); Protein, Total 7.3 g/dL (6.0-8.3); Salicylate Less than 8.0 mg/dL (15.0-30.0); Sodium 129 mmol/L (136-145)
[2022-06-30 02:35] LABS: Amphetamine Not Detected (NotDetected); Barbiturates Screen Not Detected (NotDetected); Benzodiazepine Screen Not Detected (NotDetected); Cocaine Metabolite Screen Not Detected (NotDetected); Methadone Not Detected (NotDetected); Methamphetamine Not Detected (NotDetected); Opiate Screen Not Detected (NotDetected); Oxycodone Screen Not Detected (NotDetected); Phencyclidine (PCP) Not Detected (NotDetected); THC/Cannabinoid Screen Not Detected (NotDetected); Tricyclic Screen Not Detected (NotDetected)
[2022-06-30 02:47] LABS: Bilirubin Negative (Negative); Blood, Urine Negative (Negative); Clarity Clear (Clear); Glucose, Urine (Dipstick) Normal (Negative); Ketone, Urine Negative (Negative); Leukocyte 25 Leu/uL (Negative); Nitrite Negative (Negative); Protein, Urine (Dipstick) Negative (Neg-Trace); Specific Gravity, Urine 1.003 (1.002-1.036); Urobilinogen Normal mg/dL (Less than 2)
[2022-06-30 02:52] LABS: Bacteria/HPF 4+ HPF (None Seen); RBC/HPF 0-3 HPF (0-3); Squamous Epithelial 0-3 HPF (0-3); WBC/HPF 0-3 HPF (0-3)
== END 2022-06-30 10:32 | disposition home or self-care (01) ==
LOC: ERS 00:59
DX: F10.129 Alcohol abuse with intoxication, unspecified (principal); K21.9 Gastro-esophageal reflux disease without esophagitis; R11.2 Nausea with vomiting, unspecified; E11.9 Type 2 diabetes mellitus without complications; F17.210 Nicotine dependence, cigarettes, uncomplicated; Z79.899 Other long term (current) drug therapy
CPT/HCPCS: 36415; 71045; 80053; 80306; 80307; 81003; 81015; 83735; 84443; 84484; 85025; 93005; 94760

== ENCOUNTER 2022-07-08 21:14 | Emergency (ER) | payer SELFPAY ==
[2022-07-08 22:11] LABS: #Basophils 0.1 thou/uL (0.0-0.2); #Eosinphils 0.1 thou/uL (0.0-0.7); #Lymphocytes 1.3 thou/uL (1.20-3.40); #Monocytes 0.5 thou/uL (0.11-0.59); #Neutrophils 1.6 thou/uL (1.40-6.50); %Basophils 1.6 % (0.0-1.0); %Lymphocytes 35.9 % (21.0-51.0); %Monocytes 13.3 % (0.0-10.0); %Neutrophils 45.2 % (42.0-75.0); Hemoglobin 12.7 g/dL (14.0-18.0); Mean Corpuscular HGB CONC 33.4 g/dL (32.0-36.0); Mean Corpuscular Hemoglobin 33.7 pg (27.0-31.0); Platelet Count 161 thou/uL (130-400); RBC Distribution Width 12.2 % (11.5-14.5); Red Blood Cell (RBC) Count 3.77 mill/uL (4.70-6.10); White Blood Cell (WBC) Count 3.6 thou/uL (4.8-10.8)
[2022-07-08] MEDS ORDERED: Acetaminophen 325 MG TAB ONE (22:11)
[2022-07-08 22:33] LABS: ALT (SGPT) 166 U/L (8-55); AST (SGOT) 180 U/L (5-34); Albumin 4.3 g/dL (3.5-5.0); Alkaline Phosphatase 98 U/L (40-110); Anion Gap 15 mmol/L (10-20); BUN (Urea Nitrogen) 6 mg/dL (8.4-25.7); Bilirubin, Total 0.6 mg/dL (0.2-1.2); Calc. Creatinine Clearance 0 mL/min (70-130); Calcium 9.4 mg/dL (7.8-10.44); Carbon Dioxide 26 mmol/L (22-29); Chloride 95 mmol/L (98-107); Estimated GFR 103; Globulin 3.1 g/dL (2.4-3.5); Glucose 85 mg/dL (70-105); Potassium 3.3 mmol/L (3.5-5.1); Protein, Total 7.4 g/dL (6.0-8.3); Sodium 133 mmol/L (136-145)
== END 2022-07-08 23:25 | disposition home or self-care (01) ==
LOC: ERS 21:14
DX: S20.212A Contusion of left front wall of thorax, initial encounter (principal); I10 Essential (primary) hypertension; E11.9 Type 2 diabetes mellitus without complications; F17.210 Nicotine dependence, cigarettes, uncomplicated; W19.XXXA Unspecified fall, initial encounter
CPT/HCPCS: 36415; 70450; 71045; 80053; 84484; 85025; 93005

== ENCOUNTER 2022-07-12 12:56 | Emergency (ER) | payer SELFPAY ==
[2022-07-12 14:03] LABS: #Eosinphils 0.1 thou/uL (0.0-0.7); #Lymphocytes 1.4 thou/uL (1.20-3.40); #Monocytes 0.4 thou/uL (0.11-0.59); #Neutrophils 1.6 thou/uL (1.40-6.50); %Basophils 0.8 % (0.0-1.0); %Eosinophils 2.6 % (0.0-10.0); %Lymphocytes 40.6 % (21.0-51.0); %Neutrophils 45.9 % (42.0-75.0); Mean Corpuscular HGB CONC 33.7 g/dL (32.0-36.0); Mean Corpuscular Hemoglobin 33.9 pg (27.0-31.0); Mean Platelet Volume 7.8 fL (7.4-10.4); Platelet Count 180 thou/uL (130-400); RBC Distribution Width 12.2 % (11.5-14.5); Red Blood Cell (RBC) Count 3.55 mill/uL (4.70-6.10); White Blood Cell (WBC) Count 3.5 thou/uL (4.8-10.8)
[2022-07-12 14:25] LABS: ALT (SGPT) 122 U/L (8-55); AST (SGOT) 142 U/L (5-34); Albumin 4.2 g/dL (3.5-5.0); Alkaline Phosphatase 99 U/L (40-110); Anion Gap 19 mmol/L (10-20); BUN (Urea Nitrogen) 6 mg/dL (8.4-25.7); Bilirubin, Total 0.4 mg/dL (0.2-1.2); CK (CPK) 226 U/L (30-200); Calc. Creatinine Clearance 0 mL/min (70-130); Calcium 9.4 mg/dL (7.8-10.44); Carbon Dioxide 22 mmol/L (22-29); Chloride 99 mmol/L (98-107); Estimated GFR 102; Globulin 3.1 g/dL (2.4-3.5); Glucose 103 mg/dL (70-105); Lipase 83 U/L (8-78); Potassium 3.5 mmol/L (3.5-5.1); Protein, Total 7.3 g/dL (6.0-8.3); Sodium 136 mmol/L (136-145)
== END 2022-07-12 14:37 | disposition home or self-care (01) ==
LOC: ERS 12:56
DX: R10.9 Unspecified abdominal pain (principal); I10 Essential (primary) hypertension; E11.9 Type 2 diabetes mellitus without complications; F17.210 Nicotine dependence, cigarettes, uncomplicated
CPT/HCPCS: 74176; 80053; 82550; 83690; 85025

== ENCOUNTER 2022-07-12 21:47 | Emergency (ER) | payer SELFPAY | END 2022-07-12 23:51 | disposition home or self-care (01) | LOC: ERS 21:47 | DX: Z00.00 Encounter for general adult medical examination without abnormal findings (principal); I10 Essential (primary) hypertension; E11.9 Type 2 diabetes mellitus without complications; F17.210 Nicotine dependence, cigarettes, uncomplicated | CPT/HCPCS: 99281 ==

== ENCOUNTER 2022-07-18 19:28 | Emergency (ER) | payer SELFPAY ==
[2022-07-18] MEDS ORDERED: Ibuprofen 800 MG TAB ONE (20:07)
[2022-07-18] MEDS ORDERED: Acetaminophen 325 MG TAB ONE (20:07)
== END 2022-07-18 20:48 | disposition home or self-care (01) ==
LOC: ERS 19:28
DX: R07.81 Pleurodynia (principal); E11.9 Type 2 diabetes mellitus without complications; I10 Essential (primary) hypertension; F17.210 Nicotine dependence, cigarettes, uncomplicated; W19.XXXA Unspecified fall, initial encounter
CPT/HCPCS: 71045; 93005

== ENCOUNTER 2022-07-21 15:40 | Emergency (ER) | payer SELFPAY ==
[2022-07-21 16:41] LABS: Hemoglobin 12.2 g/dL (14.0-18.0); Mean Corpuscular HGB CONC 33.2 g/dL (32.0-36.0); Mean Corpuscular Hemoglobin 33.5 pg (27.0-31.0); Mean Platelet Volume 7.8 fL (7.4-10.4); Platelet Count 177 thou/uL (130-400); RBC Distribution Width 12.3 % (11.5-14.5); Red Blood Cell (RBC) Count 3.65 mill/uL (4.70-6.10); White Blood Cell (WBC) Count 2.8 thou/uL (4.8-10.8)
[2022-07-21 16:59] LABS: Lymphocytes 32 % (21-51); MDiff Complete? YES; Macrocytosis SLIGHT = 6-15 cells (100X) (0-5/hpf); Monocytes 8 % (0-10); Neutrophil 37 % (42-75); Ovalocytes SLIGHT = 2-5 cells (100X) (0-1/hpf); Platelet Morphology Comment Appears Adequate; Polychromasia SLIGHT = 2-3 cells (100X) (0-2/hpf); Reactive Lymphocytes 23 % (0-10)
[2022-07-21 17:00] LABS: ALT (SGPT) 80 U/L (8-55); AST (SGOT) 142 U/L (5-34); Albumin 4.2 g/dL (3.5-5.0); Alkaline Phosphatase 89 U/L (40-110); Anion Gap 18 mmol/L (10-20); BUN (Urea Nitrogen) 4 mg/dL (8.4-25.7); Bilirubin, Total 0.4 mg/dL (0.2-1.2); Calc. Creatinine Clearance 0 mL/min (70-130); Calcium 9.1 mg/dL (7.8-10.44); Carbon Dioxide 22 mmol/L (22-29); Chloride 101 mmol/L (98-107); Estimated GFR 102; Globulin 3.3 g/dL (2.4-3.5); Glucose 79 mg/dL (70-105); Potassium 4.1 mmol/L (3.5-5.1); Protein, Total 7.5 g/dL (6.0-8.3); Sodium 137 mmol/L (136-145)
== END 2022-07-21 17:34 | disposition home or self-care (01) ==
LOC: ERS 15:40
DX: Z00.00 Encounter for general adult medical examination without abnormal findings (principal)
CPT/HCPCS: 36415; 71045; 80053; 85025

== ENCOUNTER 2022-07-22 13:42 | Emergency (ER) | payer SELFPAY ==
[2022-07-22 14:54] LABS: #Basophils 0.1 thou/uL (0.0-0.2); #Lymphocytes 1.3 thou/uL (1.20-3.40); #Monocytes 0.2 thou/uL (0.11-0.59); #Neutrophils 1.3 thou/uL (1.40-6.50); %Basophils 1.9 % (0.0-1.0); %Eosinophils 0.9 % (0.0-10.0); %Lymphocytes 43.6 % (21.0-51.0); %Monocytes 7.4 % (0.0-10.0); %Neutrophils 46.2 % (42.0-75.0); Hemoglobin 12.7 g/dL (14.0-18.0); Mean Corpuscular Hemoglobin 33.4 pg (27.0-31.0); Mean Platelet Volume 7.7 fL (7.4-10.4); Platelet Count 170 thou/uL (130-400); RBC Distribution Width 12.4 % (11.5-14.5); Red Blood Cell (RBC) Count 3.81 mill/uL (4.70-6.10); White Blood Cell (WBC) Count 2.9 thou/uL (4.8-10.8)
[2022-07-22 15:03] LABS: Acetaminophen Less than 10.0 mcg/mL (10.0-30.0); Alcohol 304 mg/dL (Less than 10); Salicylate Less than 8.0 mg/dL (15.0-30.0)
[2022-07-22 15:16] LABS: Amphetamine Not Detected (NotDetected); Barbiturates Screen Not Detected (NotDetected); Benzodiazepine Screen Not Detected (NotDetected); Cocaine Metabolite Screen Not Detected (NotDetected); Methadone Not Detected (NotDetected); Methamphetamine Not Detected (NotDetected); Opiate Screen Not Detected (NotDetected); Oxycodone Screen Not Detected (NotDetected); Phencyclidine (PCP) Not Detected (NotDetected); THC/Cannabinoid Screen Not Detected (NotDetected); Tricyclic Screen Not Detected (NotDetected)
[2022-07-22 15:18] LABS: Bacteria/HPF 4+ HPF (None Seen); Bilirubin Negative (Negative); Blood, Urine Negative (Negative); Clarity Turbid (Clear); Glucose, Urine (Dipstick) Normal (Negative); Ketone, Urine Negative (Negative); Leukocyte 75 Leu/uL (Negative); Nitrite 1+ (Negative); Protein, Urine (Dipstick) Negative (Neg-Trace); RBC/HPF None Seen HPF (0-3); Specific Gravity, Urine 1.007 (1.002-1.036); Squamous Epithelial 0-3 HPF (0-3); Urobilinogen Normal mg/dL (Less than 2); pH, Urine 5.5 (5.0-9.0)
[2022-07-22 15:20] LABS: ALT (SGPT) 102 U/L (8-55); AST (SGOT) 190 U/L (5-34); Albumin 4.5 g/dL (3.5-5.0); Alkaline Phosphatase 98 U/L (40-110); Anion Gap 15 mmol/L (10-20); BUN (Urea Nitrogen) 6 mg/dL (8.4-25.7); Bilirubin, Total 0.5 mg/dL (0.2-1.2); Calc. Creatinine Clearance 0 mL/min (70-130); Calcium 9.1 mg/dL (7.8-10.44); Carbon Dioxide 25 mmol/L (22-29); Chloride 99 mmol/L (98-107); Estimated GFR 93; Globulin 3.2 g/dL (2.4-3.5); Glucose 104 mg/dL (70-105); Potassium 4.1 mmol/L (3.5-5.1); Protein, Total 7.7 g/dL (6.0-8.3); Sodium 135 mmol/L (136-145)
== END 2022-07-22 15:00 | disposition left against medical advice (07) ==
LOC: ERS 13:42
DX: Z53.21 Procedure and treatment not carried out due to patient leaving prior to being seen by health care provider (principal)
CPT/HCPCS: 36415; 36416; 80053; 80306; 80307; 81003; 81015; 85025; 94760

== ENCOUNTER 2022-07-23 12:44 | Emergency (ER) | payer SELFPAY | END 2022-07-23 13:44 | disposition home or self-care (01) | LOC: ERS 12:44 | DX: R07.81 Pleurodynia (principal); G89.29 Other chronic pain; I10 Essential (primary) hypertension; J45.909 Unspecified asthma, uncomplicated; F17.210 Nicotine dependence, cigarettes, uncomplicated | CPT/HCPCS: 99281 ==

== ENCOUNTER 2022-07-23 16:50 | Emergency (ER) | payer SELFPAY | END 2022-07-23 19:22 | disposition home or self-care (01) | LOC: ERS 16:50 | DX: R07.81 Pleurodynia (principal); I10 Essential (primary) hypertension; J45.909 Unspecified asthma, uncomplicated; F17.210 Nicotine dependence, cigarettes, uncomplicated | CPT/HCPCS: 99284 ==

== ENCOUNTER 2022-07-25 19:26 | Emergency (ER) | payer OTHER, SELFPAY ==
[2022-07-25] MEDS ORDERED: Acetaminophen 500 MG TAB ONE (19:54)
== END 2022-07-25 23:02 | disposition home or self-care (01) ==
LOC: ERS 19:26
DX: S60.222A Contusion of left hand, initial encounter (principal); S20.312A Abrasion of left front wall of thorax, initial encounter; S09.90XA Unspecified injury of head, initial encounter; I10 Essential (primary) hypertension; F17.210 Nicotine dependence, cigarettes, uncomplicated; V19.9XXA Pedal cyclist (driver) (passenger) injured in unspecified traffic accident, initial encounter
CPT/HCPCS: 70450; 71045

== ENCOUNTER 2022-07-30 10:00 | Inpatient (IN) | payer SELFPAY ==
[2022-07-30 10:17] LABS: #Lymphocytes 0.5 thou/uL (1.20-3.40); #Monocytes 0.3 thou/uL (0.11-0.59); #Neutrophils 2.6 thou/uL (1.40-6.50); %Basophils 0.5 % (0.0-1.0); %Eosinophils 0.4 % (0.0-10.0); %Monocytes 7.6 % (0.0-10.0); %Neutrophils 75.6 % (42.0-75.0); Hemoglobin 11.6 g/dL (14.0-18.0); Mean Corpuscular HGB CONC 33.1 g/dL (32.0-36.0); Mean Corpuscular Hemoglobin 32.9 pg (27.0-31.0); Mean Corpuscular Volume 99.3 fL (78.0-98.0); Mean Platelet Volume 8.7 fL (7.4-10.4); Platelet Count 115 thou/uL (130-400); RBC Distribution Width 12.2 % (11.5-14.5); Red Blood Cell (RBC) Count 3.53 mill/uL (4.70-6.10); White Blood Cell (WBC) Count 3.4 thou/uL (4.8-10.8)
[2022-07-30 10:28] LABS: ALT (SGPT) 57 U/L (8-55); AST (SGOT) 46 U/L (5-34); Albumin 4.2 g/dL (3.5-5.0); Alkaline Phosphatase 88 U/L (40-110); Anion Gap 17 mmol/L (10-20); BUN (Urea Nitrogen) 12 mg/dL (8.4-25.7); Bilirubin, Total 1.4 mg/dL (0.2-1.2); CK (CPK) 161 U/L (30-200); Calc. Creatinine Clearance 0 mL/min (70-130); Carbon Dioxide 22 mmol/L (22-29); Chloride 94 mmol/L (98-107); Estimated GFR 102; Globulin 2.8 g/dL (2.4-3.5); Glucose 112 mg/dL (70-105); Potassium 3.5 mmol/L (3.5-5.1); Sodium 129 mmol/L (136-145)
[2022-07-30 10:45] LABS: Acetaminophen Less than 10.0 mcg/mL (10.0-30.0); Alcohol 35 mg/dL (Less than 10); Salicylate Less than 8.0 mg/dL (15.0-30.0)
[2022-07-30] MEDS ORDERED: levETIRAcetam 500 MG/5 ML VIAL ONE ×2 (10:50→11:04)
[2022-07-30 10:51] LABS: MDiff Complete? YES; Platelet Morphology Comment Appears Decreased; Polychromasia SLIGHT = 2-3 cells (100X) (0-2/hpf)
[2022-07-30] MEDS ORDERED: Lidocaine 0.5%/Epinephrine 1:200,000 50 ml Vial ONE (10:51)
[2022-07-30 10:53] LABS: Magnesium 1.9 mg/dL (1.6-2.6)
[2022-07-30] MEDS ORDERED: fentaNYL Citrate/PF 100 MCG/2 ML SYRINGE ONE ×2 (11:04→12:51)
[2022-07-30] MEDS ORDERED: Dextrose 5% in Water 1,000 ML IV PRN (11:05)
[2022-07-30] MEDS ORDERED: Insulin Regular 300 UNITS/3 ML VIAL SC PRN (11:05)
[2022-07-30] MEDS ORDERED: Dextrose 50% Abboject 50 ML SYRINGE SLOW IVP PRN (11:05)
[2022-07-30 11:07] LABS: Hemoglobin A1c 4.5 % (4.0-6.0)
[2022-07-30] MEDS ORDERED: Neomycin-Polymyxin 1 ML AMP ONE ×2 (11:07→12:11)
[2022-07-30 11:09] LABS: Phosphorus 2.2 mg/dL (2.3-4.7)
[2022-07-30] MEDS ORDERED: Sodium Chloride 0.9% 1,000 ML IV SCH (11:15)
[2022-07-30] MEDS ORDERED: Ventilator Sedation Protocol FS PRN (11:30)
[2022-07-30] MEDS ORDERED: Dexamethasone 20 MG/5 ML VIAL ONE (11:34)
[2022-07-30] MEDS ORDERED: PROPOFOL 200 MG/20 ML VIAL ONE (11:34)
[2022-07-30] MEDS ORDERED: Ondansetron PF 4 MG/2 ML Vial ONE (11:34)
[2022-07-30] MEDS ORDERED: Lidocaine 1% MPF 2 ML VIAL ONE (11:34)
[2022-07-30] MEDS ORDERED: ePHEDrine 50 MG/ML VIAL ONE (11:34)
[2022-07-30] MEDS ORDERED: Phenylephrine 10 MG/ML VIAL ONE (11:34)
[2022-07-30] MEDS ORDERED: Rocuronium Bromide 10 MG/ML (10ML VIAL) ONE (11:34)
[2022-07-30] MEDS ORDERED: Midazolam HCl 2 mg/2 ml Vial SLOW IVP PRN (11:53)
[2022-07-30] MEDS ORDERED: Fentanyl CADD 100 ML IV SCH (12:00)
[2022-07-30] MEDS ORDERED: Propofol 1,000 MG/100 ML VIAL IV PRN (12:00)
[2022-07-30] MEDS ORDERED: Propofol BOLUS 1,000 MG/100 ML VIAL IV PRN (12:00)
[2022-07-30] MEDS ORDERED: Morphine 4 MG/ML VIAL SLOW IVP PRN (12:00)
[2022-07-30] MEDS ORDERED: Fentanyl BOLUS 250 ML IVPB PRN (12:00)
[2022-07-30 12:17] LABS: SARS-CoV-2 NAA Rapid Test Not Detected (NotDetected)
[2022-07-30] MEDS ORDERED: Thrombin 5000 UNITS/5 ML VIAL ONE (12:37)
[2022-07-30] MEDS ORDERED: TETANUS, DIPHTHERIA TOX,ADULT (TDVAX) 0.5 ML VIAL IM ONE (13:00)
[2022-07-30] MEDS ORDERED: SUGAMMADEX SODIUM 200 MG/2 ML VIAL ONE (13:24)
[2022-07-30] MEDS ORDERED: Promethazine HCl 25 MG/ML VIAL IVPB PRN (13:49)
[2022-07-30] MEDS ORDERED: Promethazine HCl 25 MG/ML VIAL IM PRN (13:49)
[2022-07-30] MEDS ORDERED: Ondansetron HCl/PF 4 MG/2 ML Vial IVP PRN (13:49)
[2022-07-30] MEDS ORDERED: HYDROmorphone 2 MG/ML VIAL SLOW IVP PRN (13:49)
[2022-07-30 14:38] LABS: #Lymphocytes 0.3 thou/uL (1.20-3.40); #Monocytes 0.1 thou/uL (0.11-0.59); #Neutrophils 2.2 thou/uL (1.40-6.50); %Eosinophils 0.2 % (0.0-10.0); %Lymphocytes 11.4 % (21.0-51.0); %Monocytes 3.7 % (0.0-10.0); %Neutrophils 84.7 % (42.0-75.0); Hemoglobin 10.6 g/dL (14.0-18.0); Mean Corpuscular HGB CONC 33.7 g/dL (32.0-36.0); Mean Corpuscular Hemoglobin 33.4 pg (27.0-31.0); Mean Corpuscular Volume 99.3 fL (78.0-98.0); Mean Platelet Volume 8.4 fL (7.4-10.4); Platelet Count 106 thou/uL (130-400); RBC Distribution Width 12.3 % (11.5-14.5); Red Blood Cell (RBC) Count 3.17 mill/uL (4.70-6.10); White Blood Cell (WBC) Count 2.6 thou/uL (4.8-10.8)
[2022-07-30 15:09] LABS: Anion Gap 12 mmol/L (10-20); BUN (Urea Nitrogen) 11 mg/dL (8.4-25.7); Calc. Creatinine Clearance 0 mL/min (70-130); Calcium 7.9 mg/dL (7.8-10.44); Carbon Dioxide 22 mmol/L (22-29); Chloride 99 mmol/L (98-107); Estimated GFR 104; Glucose 95 mg/dL (70-105); Potassium 3.5 mmol/L (3.5-5.1); Sodium 129 mmol/L (136-145)
[2022-07-30] MEDS: Oxazepam 10 MG CAP PO SCH ×2 (15:22→20:17)
[2022-07-30] MEDS: Sodium Chloride 0.9% 1,000 ML IV SCH (15:22)
[2022-07-30 15:25] LABS: Amphetamine Not Detected (NotDetected); Bacteria/HPF 4+ HPF (None Seen); Barbiturates Screen Detected (NotDetected); Benzodiazepine Screen Not Detected (NotDetected); Bilirubin Negative (Negative); Blood, Urine 1+ (Negative); Clarity Clear (Clear); Cocaine Metabolite Screen Not Detected (NotDetected); Glucose, Urine (Dipstick) Normal (Negative); Ketone, Urine 20 mg/dL (Negative); Leukocyte 250 Leu/uL (Negative); Methadone Not Detected (NotDetected); Methamphetamine Detected (NotDetected); Nitrite 1+ (Negative); Opiate Screen Not Detected (NotDetected); Oxycodone Screen Not Detected (NotDetected); Phencyclidine (PCP) Not Detected (NotDetected); Protein, Urine (Dipstick) 30 mg/dL (Neg-Trace); Specific Gravity, Urine 1.027 (1.002-1.036); Squamous Epithelial 0-3 HPF (0-3); THC/Cannabinoid Screen Not Detected (NotDetected); Tricyclic Screen Not Detected (NotDetected); Urobilinogen Normal mg/dL (Less than 2); WBC/HPF 21-50 HPF (0-3); pH, Urine 5.5 (5.0-9.0)
[2022-07-30 15:26] VITALS: BMI 16.9
[2022-07-30 15:29] LABS: Phosphorus 2.5 mg/dL (2.3-4.7)
[2022-07-30] MEDS ORDERED: Sodium Phosphate 30 MMOL in Sodium Chloride 0.9% 250 ML 250 ML IVPB SCH (15:30)
[2022-07-30] MEDS: Morphine 4 MG/ML VIAL SLOW IVP PRN ×2 (15:39→20:54)
[2022-07-30 15:40] LABS: Magnesium 1.8 mg/dL (1.6-2.6)
[2022-07-30] MEDS ORDERED: Magnesium 2 GM/50 ML(in water) 2 GM in Premix Bag 1 BAG IVPB SCH (16:15)
[2022-07-30] MEDS: hydrALAZINE 20 MG/ML VIAL SLOW IVP PRN (16:29)
[2022-07-30] MEDS: Acetaminophen 325 MG TAB PO SCH (18:17)
[2022-07-30] MEDS: Sulfameth/Trimethoprim DS 800-160mg TAB PO SCH (20:17)
[2022-07-30] MEDS: Senokot S 8.6-50 MG TAB PO SCH (20:17)
[2022-07-30] MEDS ORDERED: Pantoprazole 40 MG VIAL IVP SCH (21:00)
[2022-07-30] MEDS ORDERED: levETIRAcetam 500 MG/5 ML VIAL SLOW IVP SCH (21:00)
[2022-07-30] MEDS ORDERED: levETIRAcetam in NS 500 MG in Premix Bag 1 BAG IVPB SCH (21:00)
[2022-07-30] MEDS ORDERED: Famotidine/PF 20 mg/2ml Vial SLOW IVP SCH (21:00)
[2022-07-31] MEDS: Acetaminophen 325 MG TAB PO SCH ×5 (00:13→23:33)
[2022-07-31] MEDS: Sodium Chloride 0.9% 1,000 ML IV SCH (02:10)
[2022-07-31 04:30] LABS: #Lymphocytes 0.3 thou/uL (1.20-3.40); #Monocytes 0.6 thou/uL (0.11-0.59); #Neutrophils 5.1 thou/uL (1.40-6.50); %Basophils 0.2 % (0.0-1.0); %Monocytes 9.3 % (0.0-10.0); %Neutrophils 85.4 % (42.0-75.0); Hemoglobin 10.3 g/dL (14.0-18.0); Mean Corpuscular HGB CONC 33.5 g/dL (32.0-36.0); Mean Corpuscular Hemoglobin 34.2 pg (27.0-31.0); Mean Platelet Volume 9.2 fL (7.4-10.4); Platelet Count 110 thou/uL (130-400); RBC Distribution Width 12.3 % (11.5-14.5); Red Blood Cell (RBC) Count 3.01 mill/uL (4.70-6.10)
[2022-07-31 04:55] LABS: Anion Gap 11 mmol/L (10-20); BUN (Urea Nitrogen) 9 mg/dL (8.4-25.7); Calc. Creatinine Clearance 73 mL/min (70-130); Calcium 7.6 mg/dL (7.8-10.44); Carbon Dioxide 21 mmol/L (22-29); Chloride 100 mmol/L (98-107); Estimated GFR 102; Glucose 181 mg/dL (70-105); Magnesium 2.4 mg/dL (1.6-2.6); Phosphorus 3.4 mg/dL (2.3-4.7); Potassium 3.7 mmol/L (3.5-5.1); Sodium 128 mmol/L (136-145)
[2022-07-31] MEDS: Oxazepam 10 MG CAP PO SCH ×3 (06:06→20:45)
[2022-07-31] MEDS: levETIRAcetam 500 MG TAB PO SCH ×2 (08:39→20:44)
[2022-07-31] MEDS: Multivitamin W/ Minerals 1 TAB PO SCH (08:39)
[2022-07-31] MEDS: Thiamine 100 MG TAB PO SCH (08:39)
[2022-07-31] MEDS: Sulfameth/Trimethoprim DS 800-160mg TAB PO SCH ×2 (08:39→20:45)
[2022-07-31] MEDS: Folic Acid 1 MG TAB PO SCH (08:39)
[2022-07-31] MEDS: Polyethylene Glycol 3350 17 GM Packet PO SCH (08:40)
[2022-07-31] MEDS: Senokot S 8.6-50 MG TAB PO SCH ×2 (08:40→20:45)
[2022-07-31] MEDS: Acetaminophen/Codeine 30-300mg Tablet PO PRN (23:32)
[2022-08-01] MEDS: Acetaminophen 325 MG TAB PO SCH ×4 (05:18→20:17)
[2022-08-01] MEDS: Oxazepam 10 MG CAP PO SCH ×3 (05:18→21:55)
[2022-08-01] MEDS: Acetaminophen/Codeine 30-300mg Tablet PO PRN ×4 (05:18→20:17)
[2022-08-01 06:10] LABS: #Lymphocytes 1.1 thou/uL (1.20-3.40); #Monocytes 0.5 thou/uL (0.11-0.59); #Neutrophils 2.7 thou/uL (1.40-6.50); %Basophils 0.5 % (0.0-1.0); %Eosinophils 0.5 % (0.0-10.0); %Monocytes 12.2 % (0.0-10.0); %Neutrophils 61.8 % (42.0-75.0); Mean Corpuscular HGB CONC 33.2 g/dL (32.0-36.0); Mean Corpuscular Hemoglobin 34.5 pg (27.0-31.0); Mean Platelet Volume 8.8 fL (7.4-10.4); Platelet Count 104 thou/uL (130-400); RBC Distribution Width 12.5 % (11.5-14.5); Red Blood Cell (RBC) Count 2.61 mill/uL (4.70-6.10); White Blood Cell (WBC) Count 4.4 thou/uL (4.8-10.8)
[2022-08-01 06:28] LABS: Anion Gap 10 mmol/L (10-20); BUN (Urea Nitrogen) 6 mg/dL (8.4-25.7); Calc. Creatinine Clearance 70 mL/min (70-130); Calcium 8.2 mg/dL (7.8-10.44); Carbon Dioxide 25 mmol/L (22-29); Chloride 101 mmol/L (98-107); Estimated GFR 93; Glucose 82 mg/dL (70-105); Magnesium 1.9 mg/dL (1.6-2.6); Phosphorus 2.4 mg/dL (2.3-4.7); Potassium 3.7 mmol/L (3.5-5.1); Sodium 132 mmol/L (136-145)
[2022-08-01] MEDS ORDERED: PHOS-NAK 1 PKT PACK PO SCH (08:30)
[2022-08-01] MEDS: Folic Acid 1 MG TAB PO SCH (08:31)
[2022-08-01] MEDS: levETIRAcetam 500 MG TAB PO SCH ×2 (08:31→20:16)
[2022-08-01] MEDS: Thiamine 100 MG TAB PO SCH (08:32)
[2022-08-01] MEDS: Multivitamin W/ Minerals 1 TAB PO SCH (08:32)
[2022-08-01] MEDS: Sulfameth/Trimethoprim DS 800-160mg TAB PO SCH ×2 (08:32→20:16)
[2022-08-01] MEDS: Polyethylene Glycol 3350 17 GM Packet PO SCH (08:41)
[2022-08-01] MEDS: Senokot S 8.6-50 MG TAB PO SCH ×2 (08:42→21:02)
[2022-08-01] MEDS: hydrALAZINE 20 MG/ML VIAL SLOW IVP PRN (20:16)
[2022-08-02] MEDS: Acetaminophen 325 MG TAB PO SCH ×5 (01:07→23:57)
[2022-08-02] MEDS: Oxazepam 10 MG CAP PO SCH ×3 (04:41→21:01)
[2022-08-02] MEDS: Acetaminophen/Codeine 30-300mg Tablet PO PRN (04:41)
[2022-08-02] MEDS: hydrALAZINE 20 MG/ML VIAL SLOW IVP PRN ×2 (04:49→20:07)
[2022-08-02 05:45] LABS: #Eosinphils 0.1 thou/uL (0.0-0.7); #Lymphocytes 1.4 thou/uL (1.20-3.40); #Monocytes 0.6 thou/uL (0.11-0.59); #Neutrophils 2.2 thou/uL (1.40-6.50); %Basophils 0.2 % (0.0-1.0); %Eosinophils 3.1 % (0.0-10.0); %Monocytes 14.1 % (0.0-10.0); %Neutrophils 50.6 % (42.0-75.0); Hemoglobin 9.5 g/dL (14.0-18.0); Mean Corpuscular HGB CONC 32.4 g/dL (32.0-36.0); Mean Corpuscular Hemoglobin 33.7 pg (27.0-31.0); Mean Platelet Volume 8.3 fL (7.4-10.4); Platelet Count 135 thou/uL (130-400); RBC Distribution Width 12.4 % (11.5-14.5); Red Blood Cell (RBC) Count 2.82 mill/uL (4.70-6.10); White Blood Cell (WBC) Count 4.3 thou/uL (4.8-10.8)
[2022-08-02 06:08] LABS: Anion Gap 10 mmol/L (10-20); BUN (Urea Nitrogen) 5 mg/dL (8.4-25.7); Calc. Creatinine Clearance 66 mL/min (70-130); Calcium 9.1 mg/dL (7.8-10.44); Carbon Dioxide 28 mmol/L (22-29); Chloride 102 mmol/L (98-107); Estimated GFR 87; Glucose 87 mg/dL (70-105); Magnesium 1.8 mg/dL (1.6-2.6); Phosphorus 3.4 mg/dL (2.3-4.7); Potassium 4.1 mmol/L (3.5-5.1); Sodium 136 mmol/L (136-145)
[2022-08-02] MEDS ORDERED: Magnesium 2 GM/50 ML(in water) 2 GM in Premix Bag 1 BAG IVPB SCH (08:00)
[2022-08-02] MEDS ORDERED: PHOS-NAK 1 PKT PACK PO SCH (08:00)
[2022-08-02] MEDS: Multivitamin W/ Minerals 1 TAB PO SCH (08:35)
[2022-08-02] MEDS: Thiamine 100 MG TAB PO SCH (08:35)
[2022-08-02] MEDS: Sulfameth/Trimethoprim DS 800-160mg TAB PO SCH ×2 (08:35→20:00)
[2022-08-02] MEDS: levETIRAcetam 500 MG TAB PO SCH ×2 (08:36→19:59)
[2022-08-02] MEDS: Folic Acid 1 MG TAB PO SCH (08:36)
[2022-08-02] MEDS: Senokot S 8.6-50 MG TAB PO SCH ×2 (08:36→20:00)
[2022-08-02] MEDS: Polyethylene Glycol 3350 17 GM Packet PO SCH (08:36)
[2022-08-02] MEDS: Acetaminophen/Codeine 30-300mg Tablet PO SCH ×3 (13:05→23:57)
[2022-08-03] MEDS: Acetaminophen/Codeine 30-300mg Tablet PO PRN (02:50)
[2022-08-03] MEDS: Acetaminophen 325 MG TAB PO SCH ×4 (04:41→23:00)
[2022-08-03] MEDS: Oxazepam 10 MG CAP PO SCH ×3 (04:42→20:51)
[2022-08-03] MEDS: Acetaminophen/Codeine 30-300mg Tablet PO SCH ×4 (05:45→22:59)
[2022-08-03] MEDS: Folic Acid 1 MG TAB PO SCH (08:33)
[2022-08-03] MEDS: Sulfameth/Trimethoprim DS 800-160mg TAB PO SCH ×2 (08:33→20:52)
[2022-08-03] MEDS: Multivitamin W/ Minerals 1 TAB PO SCH (08:33)
[2022-08-03] MEDS: levETIRAcetam 500 MG TAB PO SCH ×2 (08:33→20:51)
[2022-08-03] MEDS: Thiamine 100 MG TAB PO SCH (08:33)
[2022-08-03] MEDS: Senokot S 8.6-50 MG TAB PO SCH ×2 (08:34→20:51)
[2022-08-03] MEDS: Polyethylene Glycol 3350 17 GM Packet PO SCH (08:34)
[2022-08-04] MEDS: Acetaminophen/Codeine 30-300mg Tablet PO PRN ×2 (03:31→09:33)
[2022-08-04] MEDS: hydrALAZINE 20 MG/ML VIAL SLOW IVP PRN (06:17)
[2022-08-04] MEDS: Oxazepam 10 MG CAP PO SCH ×3 (06:19→20:09)
[2022-08-04] MEDS: Acetaminophen/Codeine 30-300mg Tablet PO SCH ×3 (06:19→17:46)
[2022-08-04] MEDS: Acetaminophen 325 MG TAB PO SCH ×3 (06:20→17:48)
[2022-08-04] MEDS: levETIRAcetam 500 MG TAB PO SCH ×2 (09:29→20:07)
[2022-08-04] MEDS: Folic Acid 1 MG TAB PO SCH (09:29)
[2022-08-04] MEDS: Polyethylene Glycol 3350 17 GM Packet PO SCH (09:31)
[2022-08-04] MEDS: Senokot S 8.6-50 MG TAB PO SCH ×2 (09:31→20:07)
[2022-08-04] MEDS: Thiamine 100 MG TAB PO SCH (09:31)
[2022-08-04] MEDS: Multivitamin W/ Minerals 1 TAB PO SCH (09:31)
[2022-08-04] MEDS: Sulfameth/Trimethoprim DS 800-160mg TAB PO SCH ×2 (09:31→20:07)
[2022-08-04] MEDS ORDERED: Lisinopril 20 MG TAB PO SCH (10:45)
[2022-08-04] MEDS ORDERED: Ondansetron PF 4 MG/2 ML Vial IVP PRN (11:08)
[2022-08-04] MEDS ORDERED: Ondansetron ODT 4 MG TAB PO PRN (11:08)
[2022-08-04] MEDS ORDERED: Scopolamine 1.5 mg/72 hour Patch TD SCH (11:15)
[2022-08-05] MEDS: Acetaminophen/Codeine 30-300mg Tablet PO SCH ×3 (00:04→11:47)
[2022-08-05] MEDS: Acetaminophen 325 MG TAB PO SCH ×3 (00:04→11:44)
[2022-08-05] MEDS: Oxazepam 10 MG CAP PO SCH (05:51)
[2022-08-05] MEDS ORDERED: Lisinopril 20 MG TAB PO SCH (09:00)
[2022-08-05] MEDS: Multivitamin W/ Minerals 1 TAB PO SCH (10:08)
[2022-08-05] MEDS: Senokot S 8.6-50 MG TAB PO SCH (10:09)
[2022-08-05] MEDS: levETIRAcetam 500 MG TAB PO SCH (10:09)
[2022-08-05] MEDS: Folic Acid 1 MG TAB PO SCH (10:09)
[2022-08-05] MEDS: Thiamine 100 MG TAB PO SCH (10:09)
[2022-08-05] MEDS: Polyethylene Glycol 3350 17 GM Packet PO SCH (10:10)
[2022-08-05] MEDS: Acetaminophen/Codeine 30-300mg Tablet PO PRN (10:15)
[2022-08-05 13:17] VITALS: BP 114/65; TEMP 98
[2022-08-05] MEDS ORDERED: Oxazepam 10 MG CAP PO SCH (21:00)
== END 2022-08-05 14:05 | disposition home or self-care (01) | DRG 25 ==
LOC: ERS 10:00 → SDC 11:26 → CCU 15:03 → OBSVTOIN 15:03 → SURG A 07-31 15:21
PROVIDERS: ADMIT Neurological Surgery; ATTEND Neurological Surgery
PROC: 00C40ZZ Extirpation of Matter from Intracranial Subdural Space, Open Approach (ICD-10-PCS; principal; 2022-07-30)
PROC: 0W310ZZ Control Bleeding in Cranial Cavity, Open Approach (ICD-10-PCS; 2022-07-30)
DX: S06.5X9A Traumatic subdural hemorrhage with loss of consciousness of unspecified duration, initial encounter (principal); S06.A0XA Traumatic brain compression without herniation, initial encounter; E87.1 Hypo-osmolality and hyponatremia; N39.0 Urinary tract infection, site not specified; Z20.822 Contact with and (suspected) exposure to COVID-19; F10.10 Alcohol abuse, uncomplicated; I10 Essential (primary) hypertension; E86.9 Volume depletion, unspecified; D69.6 Thrombocytopenia, unspecified; D64.9 Anemia, unspecified; R56.9 Unspecified convulsions; E11.9 Type 2 diabetes mellitus without complications; F17.210 Nicotine dependence, cigarettes, uncomplicated; Y09 Assault by unspecified means; R40.2412 Glasgow coma scale score 13-15, at arrival to emergency department; J45.909 Unspecified asthma, uncomplicated; F31.9 Bipolar disorder, unspecified; Z59.00 Homelessness unspecified; Z79.899 Other long term (current) drug therapy
CPT/HCPCS: 36415; 36416; 70450; 71045; 80048; 80053; 80306; 80307; 81003; 81015; 82550; 83036; 83735; 84100; 84484; 85025; 85610; 85730; 87086; 93005; 94640; 96365; C1713; C9113; G0390; J0360; J1100; J1953; J2001; J2270; J2370; J2405; J2704; J3475; J3490; J7050; J7620; U0002

== ENCOUNTER 2022-08-12 00:11 | Emergency (ER) | payer SELFPAY | END 2022-08-12 03:31 | disposition home or self-care (01) | LOC: ERS 00:11 | DX: S06.5X0A Traumatic subdural hemorrhage without loss of consciousness, initial encounter (principal); I10 Essential (primary) hypertension; W22.09XA Striking against other stationary object, initial encounter | CPT/HCPCS: 70450 ==

== ENCOUNTER 2022-08-14 16:23 | Emergency (ER) | payer SELFPAY ==
[2022-08-14 17:07] LABS: #Eosinphils 0.1 thou/uL (0.0-0.7); #Lymphocytes 1.4 thou/uL (1.20-3.40); #Monocytes 0.3 thou/uL (0.11-0.59); #Neutrophils 2.6 thou/uL (1.40-6.50); %Basophils 1.1 % (0.0-1.0); %Eosinophils 2.5 % (0.0-10.0); %Lymphocytes 31.7 % (21.0-51.0); %Monocytes 6.7 % (0.0-10.0); Hemoglobin 8.8 g/dL (14.0-18.0); Mean Corpuscular HGB CONC 33.2 g/dL (32.0-36.0); Mean Corpuscular Hemoglobin 33.6 pg (27.0-31.0); Mean Platelet Volume 6.5 fL (7.4-10.4); Platelet Count 374 thou/uL (130-400); Red Blood Cell (RBC) Count 2.63 mill/uL (4.70-6.10); White Blood Cell (WBC) Count 4.4 thou/uL (4.8-10.8)
[2022-08-14 17:13] LABS: Prothrombin Time 13.6 sec (12.0-14.7)
[2022-08-14 17:14] LABS: PTT 29.5 sec (22.9-36.1)
[2022-08-14 17:20] LABS: Acetaminophen Less than 10.0 mcg/mL (10.0-30.0); Alcohol 237 mg/dL (Less than 10); Salicylate Less than 8.0 mg/dL (15.0-30.0)
[2022-08-14 17:21] LABS: ALT (SGPT) 33 U/L (8-55); AST (SGOT) 54 U/L (5-34); Albumin 3.6 g/dL (3.5-5.0); Alkaline Phosphatase 72 U/L (40-110); Anion Gap 14 mmol/L (10-20); BUN (Urea Nitrogen) 8 mg/dL (8.4-25.7); Bilirubin, Total 0.2 mg/dL (0.2-1.2); Calc. Creatinine Clearance 0 mL/min (70-130); Calcium 8.6 mg/dL (7.8-10.44); Carbon Dioxide 22 mmol/L (22-29); Chloride 107 mmol/L (98-107); Estimated GFR 102; Glucose 89 mg/dL (70-105); Potassium 3.5 mmol/L (3.5-5.1); Protein, Total 6.6 g/dL (6.0-8.3); Sodium 139 mmol/L (136-145)
== END 2022-08-14 19:08 | disposition home or self-care (01) ==
LOC: ERS 16:23
DX: F10.129 Alcohol abuse with intoxication, unspecified (principal); I62.03 Nontraumatic chronic subdural hemorrhage; I10 Essential (primary) hypertension; Y90.7 Blood alcohol level of 200-239 mg/100 ml; Z79.899 Other long term (current) drug therapy
CPT/HCPCS: 36415; 70450; 80053; 80307; 85025; 85610; 85730

== ENCOUNTER 2022-08-29 21:45 | Emergency (ER) | payer SELFPAY ==
[2022-08-29] MEDS ORDERED: Acetaminophen 500 MG TAB ONE (23:11)
== END 2022-08-29 23:17 | disposition home or self-care (01) ==
LOC: ERS 21:45
DX: R51.9 Headache, unspecified (principal); F10.129 Alcohol abuse with intoxication, unspecified; I10 Essential (primary) hypertension; Z79.899 Other long term (current) drug therapy; W22.09XA Striking against other stationary object, initial encounter
CPT/HCPCS: 99284

== ENCOUNTER 2022-08-30 15:44 | Emergency (ER) | payer SELFPAY ==
[2022-08-30] MEDS ORDERED: Acetaminophen 500 MG TAB ONE (17:21)
[2022-08-30] MEDS ORDERED: diphenhydrAMINE 50 MG/ML VIAL ONE (17:21)
[2022-08-30] MEDS ORDERED: Prochlorperazine 10 MG/2 ML VIAL IVP SCH (17:30)
== END 2022-08-30 21:00 | disposition home or self-care (01) ==
LOC: ERS 15:44
DX: R51.9 Headache, unspecified (principal); Z48.02 Encounter for removal of sutures
CPT/HCPCS: 96374; 96375; J0780; J1200

== ENCOUNTER 2022-09-14 11:53 | Emergency (ER) | payer SELFPAY ==
[2022-09-14] MEDS ORDERED: Acetaminophen 500 MG TAB ONE (12:27)
[2022-09-14] MEDS ORDERED: Lidocaine 4% Cream 5 GM TUBE w/ Tegaderm ONE (13:32)
== END 2022-09-14 15:22 | disposition home or self-care (01) ==
LOC: ERS 11:53
DX: S01.01XD Laceration without foreign body of scalp, subsequent encounter (principal); I10 Essential (primary) hypertension; E16.2 Hypoglycemia, unspecified; W19.XXXA Unspecified fall, initial encounter
CPT/HCPCS: 70450

== ENCOUNTER 2022-09-17 10:55 | Emergency (ER) | payer SELFPAY ==
[2022-09-17 11:37] LABS: #Eosinphils 0.1 thou/uL (0.0-0.7); #Lymphocytes 1.5 thou/uL (1.20-3.40); #Monocytes 0.3 thou/uL (0.11-0.59); %Basophils 0.6 % (0.0-1.0); %Eosinophils 1.6 % (0.0-10.0); %Lymphocytes 29.6 % (21.0-51.0); %Monocytes 6.7 % (0.0-10.0); %Neutrophils 61.5 % (42.0-75.0); Hemoglobin 12.8 g/dL (14.0-18.0); Mean Corpuscular HGB CONC 31.9 g/dL (32.0-36.0); Mean Corpuscular Hemoglobin 32.3 pg (27.0-31.0); Mean Platelet Volume 7.2 fL (7.4-10.4); Platelet Count 269 10x3/uL (130-400); RBC Distribution Width 12.8 % (11.5-14.5); Red Blood Cell (RBC) Count 3.97 mill/uL (4.70-6.10); White Blood Cell (WBC) Count 4.9 10x3/uL (4.8-10.8)
[2022-09-17] MEDS ORDERED: Thiamine 100 MG TAB ONE (11:42)
[2022-09-17 12:06] LABS: Acetaminophen Less than 10.0 mcg/mL (10.0-30.0); Alcohol 352 mg/dL (Less than 10); Salicylate Less than 8.0 mg/dL (15.0-30.0)
[2022-09-17 12:12] LABS: ALT (SGPT) 24 U/L (8-55); AST (SGOT) 48 U/L (5-34); Albumin 4.1 g/dL (3.5-5.0); Alcohol 355 mg/dL (Less than 10); Alkaline Phosphatase 79 U/L (40-110); Anion Gap 16 mmol/L (10-20); BUN (Urea Nitrogen) 5 mg/dL (8.4-25.7); Bilirubin, Total 0.2 mg/dL (0.2-1.2); Calc. Creatinine Clearance 0 mL/min (70-130); Calcium 9.6 mg/dL (7.8-10.44); Carbon Dioxide 23 mmol/L (22-29); Chloride 102 mmol/L (98-107); Estimated GFR 103; Glucose 92 mg/dL (70-105); Potassium 3.6 mmol/L (3.5-5.1); Protein, Total 8.1 g/dL (6.0-8.3); Sodium 137 mmol/L (136-145)
[2022-09-17 12:15] LABS: Amphetamine Not Detected (NotDetected); Barbiturates Screen Not Detected (NotDetected); Benzodiazepine Screen Not Detected (NotDetected); Cocaine Metabolite Screen Not Detected (NotDetected); Methadone Not Detected (NotDetected); Methamphetamine Not Detected (NotDetected); Opiate Screen Not Detected (NotDetected); Oxycodone Screen Not Detected (NotDetected); Phencyclidine (PCP) Not Detected (NotDetected); THC/Cannabinoid Screen Not Detected (NotDetected); Tricyclic Screen Not Detected (NotDetected)
[2022-09-17] MEDS ORDERED: Multivit, Therapeutic 1 TAB PO SCH (12:30)
[2022-09-17 14:14] LABS: Bacteria/HPF None Seen HPF (None Seen); Bilirubin Negative (Negative); Blood, Urine Negative (Negative); Clarity Clear (Clear); Glucose, Urine (Dipstick) 30 mg/dL (Negative); Ketone, Urine Negative (Negative); Leukocyte 25 Leu/uL (Negative); Nitrite Negative (Negative); Protein, Urine (Dipstick) Negative (Neg-Trace); RBC/HPF None Seen HPF (0-3); Specific Gravity, Urine 1.003 (1.002-1.036); Squamous Epithelial None Seen HPF (0-3); Urobilinogen Normal mg/dL (Less than 2); WBC/HPF 0-3 HPF (0-3); pH, Urine 5.5 (5.0-9.0)
== END 2022-09-17 14:05 | disposition home or self-care (01) ==
LOC: ERS 10:55
DX: F10.129 Alcohol abuse with intoxication, unspecified (principal); I10 Essential (primary) hypertension
CPT/HCPCS: 36415; 70450; 80053; 80306; 80307; 81003; 81015; 84443; 85025; 93005; 96360; 96361

== ENCOUNTER 2022-09-23 13:09 | Emergency (ER) | payer OTHER, SELFPAY ==
[2022-09-23 14:08] LABS: #Eosinphils 0.1 thou/uL (0.0-0.7); #Lymphocytes 1.7 thou/uL (1.20-3.40); #Monocytes 0.4 thou/uL (0.11-0.59); #Neutrophils 1.6 thou/uL (1.40-6.50); %Basophils 1.1 % (0.0-1.0); %Eosinophils 3.6 % (0.0-10.0); %Lymphocytes 43.3 % (21.0-51.0); %Monocytes 9.8 % (0.0-10.0); %Neutrophils 42.3 % (42.0-75.0); Hemoglobin 12.3 g/dL (14.0-18.0); Mean Corpuscular HGB CONC 32.1 g/dL (32.0-36.0); Mean Corpuscular Hemoglobin 32.5 pg (27.0-31.0); Mean Platelet Volume 8.2 fL (7.4-10.4); Platelet Count 168 10x3/uL (130-400); RBC Distribution Width 12.8 % (11.5-14.5); White Blood Cell (WBC) Count 3.9 10x3/uL (4.8-10.8)
[2022-09-23 14:29] LABS: ALT (SGPT) 22 U/L (8-55); AST (SGOT) 36 U/L (5-34); Albumin 4.3 g/dL (3.5-5.0); Alkaline Phosphatase 71 U/L (40-110); Anion Gap 13 mmol/L (10-20); BUN (Urea Nitrogen) 6 mg/dL (8.4-25.7); Bilirubin, Total 0.3 mg/dL (0.2-1.2); Calc. Creatinine Clearance 0 mL/min (70-130); Calcium 9.3 mg/dL (7.8-10.44); Carbon Dioxide 26 mmol/L (22-29); Chloride 101 mmol/L (98-107); Estimated GFR 100; Globulin 3.4 g/dL (2.4-3.5); Glucose 67 mg/dL (70-105); Potassium 3.7 mmol/L (3.5-5.1); Protein, Total 7.7 g/dL (6.0-8.3); Sodium 136 mmol/L (136-145)
[2022-09-23] MEDS ORDERED: Acetaminophen 500 MG TAB ONE (14:37)
== END 2022-09-23 15:40 | disposition home or self-care (01) ==
LOC: ERS 13:09
DX: S09.90XA Unspecified injury of head, initial encounter (principal); D64.9 Anemia, unspecified; E16.2 Hypoglycemia, unspecified; I10 Essential (primary) hypertension; V29.99XA Rider (driver) (passenger) of other motorcycle injured in unspecified traffic accident, initial encounter
CPT/HCPCS: 36415; 36416; 70450; 80053; 85025; 93005

== ENCOUNTER 2022-09-26 12:47 | Emergency (ER) | payer SELFPAY | END 2022-09-26 16:34 | disposition home or self-care (01) | LOC: ERS 12:47 | DX: S09.90XA Unspecified injury of head, initial encounter (principal); I10 Essential (primary) hypertension; Y93.55 Activity, bike riding; Z79.84 Long term (current) use of oral hypoglycemic drugs; Z79.899 Other long term (current) drug therapy | CPT/HCPCS: 70450; 72125 ==

== ENCOUNTER 2022-09-29 13:01 | Emergency (ER) | payer SELFPAY ==
[2022-09-29] MEDS ORDERED: Acetaminophen 500 MG TAB ONE ×2 (16:05→16:06)
== END 2022-09-29 16:30 | disposition home or self-care (01) ==
LOC: ERS 13:01
DX: S09.90XA Unspecified injury of head, initial encounter (principal); F10.129 Alcohol abuse with intoxication, unspecified; I10 Essential (primary) hypertension; Z79.899 Other long term (current) drug therapy; W19.XXXA Unspecified fall, initial encounter
CPT/HCPCS: 70450

== ENCOUNTER 2022-09-30 18:07 | Emergency (ER) | payer SELFPAY | END 2022-09-30 18:54 | disposition home or self-care (01) | LOC: ERS 18:07 | DX: F10.129 Alcohol abuse with intoxication, unspecified (principal); R51.9 Headache, unspecified; I10 Essential (primary) hypertension; Z79.899 Other long term (current) drug therapy | CPT/HCPCS: 94760 ==

== ENCOUNTER 2022-10-03 15:30 | Emergency (ER) | payer SELFPAY | END 2022-10-03 16:35 | disposition home or self-care (01) | LOC: ERS 15:30 | DX: R51.9 Headache, unspecified (principal); I10 Essential (primary) hypertension; F17.200 Nicotine dependence, unspecified, uncomplicated | CPT/HCPCS: 99284 ==

== ENCOUNTER 2022-10-05 21:31 | Emergency (ER) | payer SELFPAY ==
[2022-10-05] MEDS ORDERED: Acetaminophen 500 MG TAB ONE (22:12)
== END 2022-10-06 00:05 | disposition home or self-care (01) ==
LOC: ERS 21:31
DX: S62.202A Unspecified fracture of first metacarpal bone, left hand, initial encounter for closed fracture (principal); S00.03XD Contusion of scalp, subsequent encounter; F10.129 Alcohol abuse with intoxication, unspecified; I10 Essential (primary) hypertension; E78.5 Hyperlipidemia, unspecified; E11.9 Type 2 diabetes mellitus without complications; F17.210 Nicotine dependence, cigarettes, uncomplicated; J45.909 Unspecified asthma, uncomplicated; Z79.899 Other long term (current) drug therapy; Z79.84 Long term (current) use of oral hypoglycemic drugs; W19.XXXA Unspecified fall, initial encounter
CPT/HCPCS: 70450

== ENCOUNTER 2022-10-06 19:18 | Emergency (ER) | payer SELFPAY ==
[2022-10-06] MEDS ORDERED: Ketorolac Tromethamine 30 MG/ML VIAL ONE (22:10)
== END 2022-10-06 22:25 | disposition home or self-care (01) ==
LOC: ERS 19:18
DX: R51.9 Headache, unspecified (principal); M79.642 Pain in left hand; I10 Essential (primary) hypertension; E11.9 Type 2 diabetes mellitus without complications; E78.5 Hyperlipidemia, unspecified; F17.210 Nicotine dependence, cigarettes, uncomplicated; Z79.899 Other long term (current) drug therapy; Z79.84 Long term (current) use of oral hypoglycemic drugs
CPT/HCPCS: 70450; 71046; 96372; J1885

== ENCOUNTER 2022-10-07 21:59 | Emergency (ER) | payer SELFPAY ==
[2022-10-07] MEDS ORDERED: Acetaminophen 500 MG TAB ONE (23:46)
== END 2022-10-07 23:55 | disposition home or self-care (01) ==
LOC: ERS 21:59
DX: R51.9 Headache, unspecified (principal); E11.9 Type 2 diabetes mellitus without complications; I10 Essential (primary) hypertension; E78.5 Hyperlipidemia, unspecified; F17.210 Nicotine dependence, cigarettes, uncomplicated; Z79.899 Other long term (current) drug therapy; Z79.84 Long term (current) use of oral hypoglycemic drugs
CPT/HCPCS: 36416; 99284

== ENCOUNTER 2022-10-08 15:35 | Emergency (ER) | payer SELFPAY ==
[2022-10-08] MEDS ORDERED: Acetaminophen 500 MG TAB ONE (18:02)
== END 2022-10-08 19:04 | disposition home or self-care (01) ==
LOC: ERS 15:35
DX: S09.90XA Unspecified injury of head, initial encounter (principal); I10 Essential (primary) hypertension; E78.5 Hyperlipidemia, unspecified; E11.9 Type 2 diabetes mellitus without complications; F17.210 Nicotine dependence, cigarettes, uncomplicated; W19.XXXA Unspecified fall, initial encounter
CPT/HCPCS: 70450

== ENCOUNTER 2022-10-08 22:02 | Emergency (ER) | payer SELFPAY ==
[2022-10-09] MEDS ORDERED: Acetaminophen 500 MG TAB ONE (00:20)
== END 2022-10-09 01:13 | disposition home or self-care (01) ==
LOC: ERS 22:02
DX: S06.9X9A Unspecified intracranial injury with loss of consciousness of unspecified duration, initial encounter (principal); I10 Essential (primary) hypertension; E78.5 Hyperlipidemia, unspecified; E11.9 Type 2 diabetes mellitus without complications; F17.210 Nicotine dependence, cigarettes, uncomplicated; W10.1XXA Fall (on)(from) sidewalk curb, initial encounter
CPT/HCPCS: 70450

== ENCOUNTER 2022-10-10 20:04 | Emergency (ER) | payer SELFPAY ==
[2022-10-10] MEDS ORDERED: Acetaminophen 500 MG TAB ONE (20:53)
== END 2022-10-10 23:52 | disposition home or self-care (01) ==
LOC: ERS 20:04
DX: G89.29 Other chronic pain (principal); R51.9 Headache, unspecified; I10 Essential (primary) hypertension; E78.5 Hyperlipidemia, unspecified; E11.9 Type 2 diabetes mellitus without complications; F17.210 Nicotine dependence, cigarettes, uncomplicated
CPT/HCPCS: 99283

== ENCOUNTER 2022-10-13 18:07 | Emergency (ER) | payer SELFPAY | END 2022-10-13 21:28 | disposition left against medical advice (07) | LOC: ERS 18:07 | DX: R60.9 Edema, unspecified (principal) ==

== ENCOUNTER 2022-10-15 12:23 | Emergency (ER) | payer SELFPAY | END 2022-10-15 15:17 | disposition home or self-care (01) | LOC: ERS 12:23 | DX: S62.125A Nondisplaced fracture of lunate [semilunar], left wrist, initial encounter for closed fracture (principal); W19.XXXA Unspecified fall, initial encounter | CPT/HCPCS: 25624 ==

== ENCOUNTER 2022-10-18 17:00 | Emergency (ER) | payer SELFPAY | END 2022-10-19 02:30 | disposition left against medical advice (07) | LOC: ERS 17:00 | DX: Z53.29 Procedure and treatment not carried out because of patient's decision for other reasons (principal) ==

== ENCOUNTER 2022-10-20 20:51 | Emergency (ER) | payer SELFPAY | END 2022-10-21 02:45 | disposition home or self-care (01) | LOC: ERS 20:51 | DX: Z00.00 Encounter for general adult medical examination without abnormal findings (principal); I10 Essential (primary) hypertension; E11.9 Type 2 diabetes mellitus without complications; J45.909 Unspecified asthma, uncomplicated; F17.210 Nicotine dependence, cigarettes, uncomplicated | CPT/HCPCS: 99281 ==

== ENCOUNTER 2022-10-23 13:56 | Emergency (ER) | payer SELFPAY ==
[2022-10-23] MEDS ORDERED: Acetaminophen 500 MG TAB ONE (14:21)
[2022-10-23] MEDS ORDERED: Ibuprofen 200 MG TAB ONE (14:21)
== END 2022-10-23 14:30 | disposition home or self-care (01) ==
LOC: ERS 13:56
DX: S62.202A Unspecified fracture of first metacarpal bone, left hand, initial encounter for closed fracture (principal); W19.XXXA Unspecified fall, initial encounter
CPT/HCPCS: 99282

== ENCOUNTER 2022-10-25 21:36 | Emergency (ER) | payer SELFPAY | END 2022-10-26 01:04 | disposition home or self-care (01) | LOC: ERS 21:36 | DX: M79.642 Pain in left hand (principal); R51.9 Headache, unspecified | CPT/HCPCS: 99283 ==

== ENCOUNTER 2022-10-27 11:51 | Emergency (ER) | payer OTHER, SELFPAY ==
[2022-10-27] MEDS ORDERED: Acetaminophen 500 MG TAB ONE (12:24)
== END 2022-10-27 13:48 | disposition home or self-care (01) ==
LOC: ERS 11:51
DX: M79.642 Pain in left hand (principal); I10 Essential (primary) hypertension; W01.0XXA Fall on same level from slipping, tripping and stumbling without subsequent striking against object, initial encounter
CPT/HCPCS: 71045

== ENCOUNTER 2022-11-04 19:16 | Emergency (ER) | payer SELFPAY ==
[2022-11-04] MEDS ORDERED: Acetaminophen 325 MG TAB ONE (19:54)
[2022-11-04] MEDS ORDERED: Lisinopril 10 MG TAB ONE (19:55)
[2022-11-04] MEDS ORDERED: hydrALAZINE 25 MG TAB ONE (19:55)
== END 2022-11-04 20:50 | disposition home or self-care (01) ==
LOC: ERS 19:16
DX: R51.9 Headache, unspecified (principal); I10 Essential (primary) hypertension; M25.532 Pain in left wrist; F17.200 Nicotine dependence, unspecified, uncomplicated
CPT/HCPCS: 70450

== ENCOUNTER 2022-11-06 20:39 | Emergency (ER) | payer SELFPAY | END 2022-11-06 21:31 | LOC: ERS 20:39 | DX: Z02.89 Encounter for other administrative examinations (principal); I10 Essential (primary) hypertension; J45.909 Unspecified asthma, uncomplicated; F17.200 Nicotine dependence, unspecified, uncomplicated | CPT/HCPCS: 99282 ==

== ENCOUNTER 2022-11-08 16:12 | Emergency (ER) | payer SELFPAY | END 2022-11-08 16:53 | LOC: ERS 16:12 | DX: Z02.9 Encounter for administrative examinations, unspecified (principal); I10 Essential (primary) hypertension; F10.129 Alcohol abuse with intoxication, unspecified | CPT/HCPCS: 99281 ==

== ENCOUNTER 2022-11-14 18:33 | Emergency (ER) | payer SELFPAY | END 2022-11-14 20:05 | disposition home or self-care (01) | LOC: ERS 18:33 | DX: M79.645 Pain in left finger(s) (principal); I10 Essential (primary) hypertension; F17.200 Nicotine dependence, unspecified, uncomplicated; W19.XXXA Unspecified fall, initial encounter | CPT/HCPCS: 70450; 72125 ==

== ENCOUNTER 2022-11-14 21:28 | Emergency (ER) | payer SELFPAY ==
[2022-11-14] MEDS ORDERED: Acetaminophen 500 MG TAB ONE (22:20)
== END 2022-11-15 00:04 | disposition home or self-care (01) ==
LOC: ERS 21:28
DX: F10.10 Alcohol abuse, uncomplicated (principal); I10 Essential (primary) hypertension; W10.1XXA Fall (on)(from) sidewalk curb, initial encounter
CPT/HCPCS: 70450; 71045; 72125

== ENCOUNTER 2022-11-16 21:32 | Emergency (ER) | payer SELFPAY ==
[2022-11-16] MEDS ORDERED: Ibuprofen 200 MG TAB ONE (22:41)
== END 2022-11-16 22:50 | disposition home or self-care (01) ==
LOC: ERS 21:32
DX: S20.212A Contusion of left front wall of thorax, initial encounter (principal); I10 Essential (primary) hypertension; F17.200 Nicotine dependence, unspecified, uncomplicated; Y04.8XXA Assault by other bodily force, initial encounter

== ENCOUNTER 2022-11-16 23:50 | Emergency (ER) | payer SELFPAY | END 2022-11-17 02:25 | disposition home or self-care (01) | LOC: ERS 23:50 | DX: R51.9 Headache, unspecified (principal) | CPT/HCPCS: 99283 ==

== ENCOUNTER 2025-05-04 01:37 | Emergency (ER) | payer OTHER | END 2025-05-04 02:24 | disposition home or self-care (01) | LOC: ERS 01:37 | DX: F10.129 Alcohol abuse with intoxication, unspecified (principal); E11.9 Type 2 diabetes mellitus without complications; I10 Essential (primary) hypertension; F17.210 Nicotine dependence, cigarettes, uncomplicated; Y90.9 Presence of alcohol in blood, level not specified | CPT/HCPCS: 99283 ==